=== PATIENT | male | born 1945 | race Two or more races ===

== ENCOUNTER 2025-04-10 15:45 | Inpatient (IN) | payer OTHER ==
[~2025-04-10] VITALS: Ht 160 cm; Wt 56.4 kg
[~2025-04-10 15:45] MED LIST: CALCIUM CHLORIDE 1 GM/10 ML DISP.SYRIN IVP ONE; EPINEPHRINE 1:10,000 1 MG/10 ML DISP.SYRIN ONE; SODIUM BICARBONATE 8.4% 50 MEQ/50 ML DISP.SYRIN IV ONE
[2025-04-10] MEDS ORDERED: ISOS60TA72 PO (16:14)
[2025-04-10] MEDS ORDERED: FAMO10TA41 PO (16:14)
[2025-04-10] MEDS ORDERED: MAGN400O6 PO (16:14)
[2025-04-10] MEDS ORDERED: ZOLP5TAB18 PO (16:14)
[2025-04-10] MEDS ORDERED: FERR-56 PO (16:14)
[2025-04-10] MEDS ORDERED: ACET-3117 PO (16:14)
[2025-04-10] MEDS ORDERED: DOCU-141 PO (16:14)
[2025-04-10] MEDS ORDERED: ATOR20TA PO (16:14)
[2025-04-10] MEDS ORDERED: HYDR-5156 PO (16:14)
[2025-04-10] MEDS ORDERED: CARV12.52 PO (16:14)
[2025-04-10] MEDS ORDERED: BISA10SU61 RC (16:14)
[2025-04-10] MEDS ORDERED: FOLI1TAB27 PO (16:14)
[2025-04-10] MEDS ORDERED: FOLI0.8T2 PO (16:14)
[2025-04-10] MEDS ORDERED: NITR0.4T SL (16:14)
[2025-04-10] MEDS ORDERED: ASPI-869 PO (16:14)
[2025-04-10] MEDS ORDERED: TAMS0.4C PO (16:14)
[2025-04-10] MEDS ORDERED: ACET-73 PO (16:14)
[2025-04-10] MEDS ORDERED: CHOL10005 PO (16:14)
[2025-04-10] MEDS ORDERED: NA P133E RC (16:14)
[2025-04-10] MEDS ORDERED: MELA3TAB52 PO (16:14)
[2025-04-10] MEDS ORDERED: LOSA50TA39 PO (16:14)
[2025-04-10] MEDS ORDERED: GABA100C PO (16:14)
[2025-04-10] MEDS ORDERED: SEVE800T7 PO (16:14)
[2025-04-10] MEDS ORDERED: ALBU0.63 NEB (16:14)
[2025-04-10] MEDS ORDERED: SENN-302 PO (16:14)
[2025-04-10] MEDS ORDERED: FURO-152 PO (16:14)
[2025-04-10 16:31] LABS: PLATELET COUNT (AUTO) 256 K/uL (179-408); RED BLOOD CELL COUNT(AUTO) 2.97 MIL/uL (3.63-4.92); RED CELL DISTRIBUTION WIDTH 19.1 % (12.3-17.7); WHITE BLOOD COUNT (AUTO) 6.4 K/uL (3.8-11.8)
[2025-04-10 16:42] LABS: CREATININE 5.0 mg/dL (0.6-1.3); SODIUM SERUM 131 mmol/L (136-145); UREA NITROGEN, BLOOD 59 mg/dL (7-18)
[2025-04-10 16:47] LABS: ASPARTATE AMINOTRANSFERASE 38 U/L (15-37); TOTAL PROTEIN, SERUM 7.9 g/dL (6.4-8.2)
[2025-04-10] MEDS ORDERED: METOCLOPRAMIDE HCL 10 MG/2 ML VIAL ONE (17:18)
[2025-04-10] MEDS ORDERED: MORPHINE SULFATE 2 MG/1 ML DISP.SYRIN ONE (17:18)
[2025-04-10] MEDS: METOCLOPRAMIDE HCL 10 MG/2 ML VIAL IV ONE (17:45)
[2025-04-10] MEDS: MORPHINE SULFATE 2 MG/1 ML DISP.SYRIN IV ONE (17:45)
[2025-04-10] MEDS ORDERED: MIDAZOLAM HCL 2 MG/2 ML VIAL ONE (17:47)
[2025-04-10] MEDS: MIDAZOLAM HCL 2 MG/2 ML VIAL IV ONE (18:03)
[2025-04-10] MEDS: SODIUM ZIRCONIUM CYCLOSILICATE 10 GM POWD.PACK PO ONE ×2 (18:45→22:17)
[2025-04-10] MEDS ORDERED: ONDANSETRON 4 MG/2 ML VIAL IV PRN (19:00)
[2025-04-10] MEDS ORDERED: MAGNESIUM HYDROXIDE 30 ML LIQUID UDC PO PRN (19:00)
[2025-04-10 19:43] LABS: CREATININE 5.1 mg/dL (0.6-1.3); SODIUM SERUM 132 mmol/L (136-145); UREA NITROGEN, BLOOD 63 mg/dL (7-18)
[2025-04-10] MEDS: CALCIUM CHLORIDE 1 GM/10 ML DISP.SYRIN IVP ONE (21:30)
[2025-04-10] MEDS: ALBUTEROL SULFATE 2.5 MG/3 ML NEBU NEB ONE ×2 (21:30→23:04)
[2025-04-10 22:09] VITALS: BP 166/78; TEMP 97.9; O2SAT 92
[2025-04-10] MEDS: SODIUM BICARBONATE 8.4% 50 MEQ/50 ML DISP.SYRIN IV ONE (22:23)
[2025-04-10] MEDS ORDERED: INSULIN REGULAR, HUMAN 1000 UNIT/10 ML VIAL ONE (22:28)
[2025-04-10] MEDS: DEXTROSE 50% 50 ML DISP.SYRIN IV ONE (22:29)
[2025-04-10] MEDS: GABAPENTIN 100 MG CAPSULE PO SCH (22:33)
[2025-04-10] MEDS ORDERED: CALCIUM CHLORIDE 1 GM/10 ML DISP.SYRIN IVP ONE (22:33)
[2025-04-10] MEDS: ATORVASTATIN 20 MG TABLET PO SCH (22:33)
[2025-04-10] MEDS: MELATONIN 3 MG TABLET PO SCH (22:33)
[2025-04-10] MEDS: INSULIN REGULAR, HUMAN 1000 UNIT/10 ML VIAL IV ONE (22:35)
[2025-04-10] MEDS: FUROSEMIDE 20 MG/2 ML VIAL IVP ONE (22:52)
[2025-04-10 23:03] VITALS: O2SAT 92
[2025-04-10 23:12] VITALS: O2SAT 95
[2025-04-11] VITALS (7 sets, daily range): BP systolic 112–170; BP diastolic 55–78; TEMP 97.3–98.7; O2SAT 91–100
[2025-04-11 00:40] LABS: *BILIRUBIN,URIN NEGATIVE (NEGATIVE); *BLOOD, URINE 1+ (NEGATIVE); *CLARITY,URINE CLOUDY (CLEAR); *COLOR,URINE YELLOW (YELLOW); *KETONES,URINE NEGATIVE (NEGATIVE); *UROBILINOGEN,URINE 0.2 E.U./dl (NORMAL); LEUKOCYTE ESTERASE ,URINE 3+ (NEGATIVE); NITRITE, URINE NEGATIVE (NEGATIVE); UGLUCOSE NEGATIVE (NEGATIVE)
[2025-04-11 00:42] LABS: *PROTEIN,URINE 3+ (NEGATIVE)
[2025-04-11 00:49] LABS: SQUAMOUS EPITHELIAL CELL,UR FEW /HPF (NONE SEEN)
[2025-04-11] MEDS: LORAZEPAM 0.5 MG TABLET PO ONE (01:06)
[2025-04-11 07:46] LABS: PLATELET COUNT (AUTO) 261 K/uL (152-348); RED BLOOD CELL COUNT(AUTO) 3.21 MIL/uL (4.06-5.63); RED CELL DISTRIBUTION WIDTH 18.6 % (12.1-16.2); WHITE BLOOD COUNT (AUTO) 7.7 K/uL (3.6-10.2)
[2025-04-11 07:50] LABS: CREATININE 5.8 mg/dL (0.6-1.3); SODIUM SERUM 134 mmol/L (136-145); UREA NITROGEN, BLOOD 74 mg/dL (7-18)
[2025-04-11] MEDS: SEVELAMER CARBONATE 800 MG TABLET PO SCH (08:56)
[2025-04-11] MEDS: CHOLECALCIFEROL 1,000 UNIT TABLET PO SCH (09:03)
[2025-04-11] MEDS: DOCUSATE SODIUM 100 MG CAPSULE PO SCH (09:03)
[2025-04-11] MEDS: FOLIC ACID/VITAMIN B COMP W-C TABLET PO SCH (09:03)
[2025-04-11] MEDS: ASPIRIN EC 325 MG TABLET.DR PO SCH (09:03)
[2025-04-11] MEDS: CARVEDILOL 12.5 MG TABLET PO SCH (09:04)
[2025-04-11] MEDS: ISOSORBIDE MONONITRATE 60 MG TAB.SR.24H PO SCH (09:04)
[2025-04-11] MEDS: ACETAMINOPHEN 325 MG TABLET PO PRN (09:06)
[2025-04-11] MEDS: FAMOTIDINE 20 MG TABLET PO SCH (09:08)
[2025-04-11] MEDS ORDERED: CYAN100T44 PO (10:36)
[2025-04-11 13:53] LABS: BAND % (MANUAL) 4 % (0-10); NEUTROPHILS % (MANUAL) 60 % (42-75)
[2025-04-11 13:54] LABS: LYMPHOCYTES % (MANUAL) 17 % (20-40); MONOCYTES % (MANUAL) 19 % (2-10); PLATELET ESTIMATE ADEQUATE
[2025-04-11] MEDS ORDERED: HEPA500034 SQ (15:58)
[2025-04-11] MEDS: FERROUS SULFATE 325 MG TABEC PO SCH (17:11)
[2025-04-11] MEDS: SENNOSIDES/DOCUSATE SODIUM TABLET PO SCH (17:11)
[2025-04-11] MEDS: TAMSULOSIN HCL 0.4 MG CAP.SR.24H PO SCH (23:46)
[2025-04-11] MEDS: HEPARIN SODIUM,PORCINE 5,000 UNITS/ML VIAL SQ SCH (23:47)
[2025-04-12] VITALS (8 sets, daily range): BP systolic 104–173; BP diastolic 53–84; TEMP 97.4–98.1; O2SAT 95–100
[2025-04-12] MEDS: CLONIDINE HCL 0.1 MG TABLET PO PRN (04:28)
[2025-04-12 07:07] LABS: PLATELET COUNT (AUTO) 228 K/uL (152-348); RED BLOOD CELL COUNT(AUTO) 2.68 MIL/uL (4.06-5.63); RED CELL DISTRIBUTION WIDTH 18.6 % (12.1-16.2); WHITE BLOOD COUNT (AUTO) 7.5 K/uL (3.6-10.2)
[2025-04-12 07:26] LABS: CREATININE 4.8 mg/dL (0.6-1.3); SODIUM SERUM 134 mmol/L (136-145); UREA NITROGEN, BLOOD 60 mg/dL (7-18)
[2025-04-12] MEDS: CYANOCOBALAMIN 100 MCG TABLET PO SCH (08:49)
[2025-04-12] MEDS: ASPIRIN 81 MG TAB.CHEW PO SCH (08:50)
[2025-04-12] MEDS: LORAZEPAM 1 MG TABLET PO PRN (11:22)
[2025-04-12] MEDS: MUPIROCIN 2% OINT 22 GM TUBE NS SCH (15:01)
[2025-04-12] MEDS: VANCOMYCIN IV 1,000 MG in IV DEXTROSE 5% 250 ML IV ONE (18:10)
[2025-04-13] VITALS (8 sets, daily range): BP systolic 95–141; BP diastolic 49–70; TEMP 97.5–98.6; O2SAT 97–100
[2025-04-13 07:14] LABS: PLATELET COUNT (AUTO) 208 K/uL (152-348); RED BLOOD CELL COUNT(AUTO) 3.06 MIL/uL (4.06-5.63); RED CELL DISTRIBUTION WIDTH 18.7 % (12.1-16.2); WHITE BLOOD COUNT (AUTO) 7.3 K/uL (3.6-10.2)
[2025-04-13 07:19] LABS: CREATININE 4.1 mg/dL (0.6-1.3); SODIUM SERUM 128 mmol/L (136-145); UREA NITROGEN, BLOOD 47 mg/dL (7-18)
[2025-04-13] MEDS ORDERED: VANCOMYCIN IV 500 MG in IV DEXTROSE 5% 100 ML IV PRN (08:00)
[2025-04-13 08:07] LABS: HEPATITIS B CORE AB, TOTAL Negative (Negative); HEPATITIS B SURFACE AB, QUAL Non Reactive (.)
[2025-04-13] MEDS: TRAMADOL HCL 50 MG TABLET PO PRN (11:23)
[2025-04-13] MEDS: CARVEDILOL 25 MG TABLET PO ONE (13:40)
[2025-04-13] MEDS ORDERED: TRAMADOL HCL 50 MG TABLET PO SCH (14:00)
[2025-04-13 14:21] LABS: BAND % (MANUAL) 3 % (0-10); LYMPHOCYTES % (MANUAL) 20 % (20-40); MONOCYTES % (MANUAL) 16 % (2-10); NEUTROPHILS % (MANUAL) 61 % (42-75)
[2025-04-13 14:22] LABS: PLATELET ESTIMATE ADEQUATE
[2025-04-13] MEDS: CARVEDILOL 25 MG TABLET PO SCH (16:49)
[2025-04-13] MEDS: VANCOMYCIN IV 1,000 MG in IV DEXTROSE 5% 250 ML IV ONE (20:38)
[2025-04-14 05:06] VITALS: BP 94/53; TEMP 97.9; O2SAT 100
[2025-04-14 07:16] LABS: PLATELET COUNT (AUTO) 213 K/uL (152-348); RED BLOOD CELL COUNT(AUTO) 2.73 MIL/uL (4.06-5.63); RED CELL DISTRIBUTION WIDTH 18.8 % (12.1-16.2); WHITE BLOOD COUNT (AUTO) 5.3 K/uL (3.6-10.2)
[2025-04-14 07:25] LABS: CREATININE 4.0 mg/dL (0.6-1.3); SODIUM SERUM 129 mmol/L (136-145); UREA NITROGEN, BLOOD 45 mg/dL (7-18)
[2025-04-14 08:30] VITALS: BP 103/78; TEMP 97.8
[2025-04-14 10:50] VITALS: O2SAT 98
[2025-04-14] MEDS: SODIUM ZIRCONIUM CYCLOSILICATE 10 GM POWD.PACK PO ONE (11:43)
[2025-04-14 12:00] VITALS: BP 141/81; TEMP 94
[2025-04-14] MEDS ORDERED: MEROPENEM 1 G in IV NORMAL SALINE 100 ML IV SCH (14:00)
[2025-04-14] MEDS ORDERED: MEROPENEM 500 MG in IV NORMAL SALINE 50 ML IV SCH (21:00)
[2025-04-14] MEDS: MEROPENEM 500 MG in IV NORMAL SALINE 50 ML IV SCH (23:11)
[2025-04-14] MEDS: VANCOMYCIN IV 1,000 MG in IV DEXTROSE 5% 250 ML IV ONE (23:11)
[2025-04-15] VITALS (7 sets, daily range): BP systolic 99–142; BP diastolic 52–83; TEMP 97.4–97.9; O2SAT 94–99
[2025-04-15 06:49] LABS: PLATELET COUNT (AUTO) 194 K/uL (152-348); RED BLOOD CELL COUNT(AUTO) 2.62 MIL/uL (4.06-5.63); RED CELL DISTRIBUTION WIDTH 18.9 % (12.1-16.2); WHITE BLOOD COUNT (AUTO) 5.6 K/uL (3.6-10.2)
[2025-04-15 07:06] LABS: CREATININE 3.9 mg/dL (0.6-1.3); SODIUM SERUM 137 mmol/L (136-145); UREA NITROGEN, BLOOD 37 mg/dL (7-18)
[2025-04-16] VITALS (7 sets, daily range): BP systolic 91–146; BP diastolic 51–87; TEMP 97.4–98.9; O2SAT 95–100
[2025-04-16] MEDS: ALPRAZOLAM 0.25 MG TABLET PO PRN (03:15)
[2025-04-16 06:26] LABS: PLATELET COUNT (AUTO) 178 K/uL (152-348); RED BLOOD CELL COUNT(AUTO) 2.70 MIL/uL (4.06-5.63); RED CELL DISTRIBUTION WIDTH 19.0 % (12.1-16.2); WHITE BLOOD COUNT (AUTO) 6.8 K/uL (3.6-10.2)
[2025-04-16 06:28] LABS: CREATININE 4.0 mg/dL (0.6-1.3); SODIUM SERUM 135 mmol/L (136-145); UREA NITROGEN, BLOOD 42 mg/dL (7-18)
[2025-04-16] MEDS: ARGININE/GLUTAMINE/CALCIUM BMB 1 EACH POWD.PACK PO SCH (08:42)
[2025-04-17 03:58] VITALS: O2SAT 97
[2025-04-17 06:52] LABS: PLATELET COUNT (AUTO) 161 K/uL (152-348); RED BLOOD CELL COUNT(AUTO) 2.58 MIL/uL (4.06-5.63); RED CELL DISTRIBUTION WIDTH 18.6 % (12.1-16.2); WHITE BLOOD COUNT (AUTO) 6.3 K/uL (3.6-10.2)
[2025-04-17 06:53] LABS: CREATININE 4.7 mg/dL (0.6-1.3); SODIUM SERUM 126 mmol/L (136-145); UREA NITROGEN, BLOOD 57 mg/dL (7-18)
[2025-04-17 08:23] VITALS: BP 80/52; TEMP 97.6; O2SAT 96
[2025-04-17 12:07] VITALS: BP 106/53; TEMP 97.6; O2SAT 96
[2025-04-17] MEDS: ALBUMIN HUMAN 25% 100 ML IV SCH (13:49)
[2025-04-17 16:15] VITALS: O2SAT 96
[2025-04-17 16:57] VITALS: BP 104/40; TEMP 97.6; O2SAT 96
[2025-04-17] MEDS: VANCOMYCIN IV 500 MG in IV DEXTROSE 5% 100 ML IV ONE (18:09)
[2025-04-17] MEDS: MIDODRINE HCL 5 MG TABLET PO PRN (20:11)
[2025-04-18] VITALS (66 sets, daily range): BP systolic 51–185; BP diastolic 15–113; TEMP 97.8–98.8; O2SAT 98–100
[2025-04-18] MEDS: DEXAMETHASONE SOD PHOSPHATE 4 MG INJ IV ONE (06:45)
[2025-04-18] MEDS: NOREPINEPHRINE 8MG/NS 250ML 250 ML IV ONE (06:59)
[2025-04-18] MEDS: PROPOFOL 100 ML ONE (07:00)
[2025-04-18] MEDS: PROPOFOL 100 ML IV PRN ×2 (07:09→08:07)
[2025-04-18] MEDS: PHENYLEPHRINE IV 100 MG in IV NORMAL SALINE 240 ML IV PRN (07:31)
[2025-04-18 07:39] LABS: PLATELET COUNT (AUTO) 153 K/uL (152-348); RED BLOOD CELL COUNT(AUTO) 2.87 MIL/uL (4.06-5.63); RED CELL DISTRIBUTION WIDTH 18.9 % (12.1-16.2); WHITE BLOOD COUNT (AUTO) 8.5 K/uL (3.6-10.2)
[2025-04-18] MEDS: AMIODARONE HCL IV 150 MG in IV DEXTROSE 5% 100 ML IV ONE (07:46)
[2025-04-18 07:48] LABS: CREATININE 4.5 mg/dL (0.6-1.3); SODIUM SERUM 130 mmol/L (136-145); UREA NITROGEN, BLOOD 54 mg/dL (7-18)
[2025-04-18] MEDS: AMIODARONE HCL IV 450 MG in IV DEXTROSE 5% 250 ML IV PRN (08:10)
[2025-04-18 08:55] LABS: ABG BASE EXCESS -2.4 mmol/L (-2.0-3.0); ABG HCO3 22.0 mmol/L (21.0-28.0); ABG PCO2 36.2 mmHg (35.0-48.0); ABG PH 7.402 (7.350-7.450); ABG PO2 219.9 mmHg (83.0-108.0); ABG SITE LEFT FEMORAL; ABG TOTAL HEMOGLOBIN 9.7 G/dL (13.5-17.5); AaDO2 99.5 mmHg; FIO2 100.0 %; PEEP,BG 0.0 cmH20; SET RATE, BG 18.0; VT, ABG 500 mL
[2025-04-18] MEDS ORDERED: ISOSORBIDE MONONITRATE 60 MG TAB.SR.24H PO SCH (09:00)
[2025-04-18] MEDS ORDERED: CARVEDILOL 25 MG TABLET PO SCH (09:00)
[2025-04-18] MEDS ORDERED: NOREPINEPHRINE BITARTRATE 32 MG in IV NORMAL SALINE 218 ML IV PRN ×2 (09:30→09:45)
[2025-04-18] MEDS ORDERED: LORAZEPAM 1 MG TABLET PO PRN (10:00)
[2025-04-18] MEDS: NOREPINEPHRINE BITARTRATE 32 MG in IV NORMAL SALINE 218 ML IV PRN (11:01)
[2025-04-18] MEDS: FERROUS SULFATE 300 MG/5 ML LIQUID UDC NG SCH (17:17)
[2025-04-18] MEDS: FAMOTIDINE. 20 MG/2 ML VIAL IV SCH (20:36)
[2025-04-18] MEDS: DOCUSATE SODIUM 100 MG/10 ML LIQUID UDC NG SCH (20:36)
[2025-04-19] VITALS (97 sets, daily range): BP systolic 71–172; BP diastolic 19–107; TEMP 97.5–98.5; O2SAT 93–100
[2025-04-19 05:01] LABS: PLATELET COUNT (AUTO) 161 K/uL (152-348); RED BLOOD CELL COUNT(AUTO) 3.34 MIL/uL (4.06-5.63); RED CELL DISTRIBUTION WIDTH 19.6 % (12.1-16.2); WHITE BLOOD COUNT (AUTO) 13.2 K/uL (3.6-10.2)
[2025-04-19 05:13] LABS: CREATININE 5.2 mg/dL (0.6-1.3); SODIUM SERUM 127 mmol/L (136-145); UREA NITROGEN, BLOOD 66 mg/dL (7-18)
[2025-04-19 06:12] LABS: ABG BASE EXCESS -2.2 mmol/L (-2.0-3.0); ABG HCO3 20.1 mmol/L (21.0-28.0); ABG PCO2 27.5 mmHg (35.0-48.0); ABG PH 7.482 (7.350-7.450); ABG PO2 129.6 mmHg (83.0-108.0); ABG SITE LEFT BRACHIAL; ABG TOTAL HEMOGLOBIN 12.2 G/dL (13.5-17.5); AaDO2 98.8 mmHg; FIO2 50.0 %; PEEP,BG 0.0 cmH20; SET RATE, BG 18.0; VT, ABG 500 mL
[2025-04-19] MEDS: NEOMY/BACITRAC/POLYMI OINT 28.35 GM TUBE TOP SCH (09:46)
[2025-04-20] VITALS (100 sets, daily range): BP systolic 76–211; BP diastolic 20–119; TEMP 96.3–97.8; O2SAT 91–100
[2025-04-20] MEDS: MEROPENEM 500 MG in IV NORMAL SALINE 50 ML IV SCH (01:39)
[2025-04-20 04:29] LABS: PLATELET COUNT (AUTO) 144 K/uL (152-348); RED BLOOD CELL COUNT(AUTO) 3.02 MIL/uL (4.06-5.63); RED CELL DISTRIBUTION WIDTH 19.4 % (12.1-16.2); WHITE BLOOD COUNT (AUTO) 6.3 K/uL (3.6-10.2)
[2025-04-20 04:38] LABS: CREATININE 4.4 mg/dL (0.6-1.3); SODIUM SERUM 136 mmol/L (136-145); UREA NITROGEN, BLOOD 51 mg/dL (7-18)
[2025-04-20 06:44] LABS: ABG BASE EXCESS 2.0 mmol/L (-2.0-3.0); ABG HCO3 24.8 mmol/L (21.0-28.0); ABG PCO2 32.1 mmHg (35.0-48.0); ABG PH 7.505 (7.350-7.450); ABG PO2 73.0 mmHg (83.0-108.0); ABG SITE LEFT BRACHIAL; ABG TOTAL HEMOGLOBIN 10.8 G/dL (13.5-17.5); AaDO2 96.0 mmHg; FIO2 30.0 %; PEEP,BG 5.0 cmH20; SET RATE, BG 14.0; VT, ABG 500 mL
[2025-04-21] VITALS (91 sets, daily range): BP systolic 77–155; BP diastolic 27–111; TEMP 97.6–98.8; O2SAT 92–100
[2025-04-21] MEDS: VANCOMYCIN HCL 750 MG in IV DEXTROSE 5% 250 ML IV ONE (17:53)
[2025-04-21] MEDS: SEVELAMER CARBONATE 800 MG POWD.PACK NG SCH (17:53)
[2025-04-21] MEDS: NEPRO 1000 ML GT PRN (22:25)
[2025-04-21] MEDS ORDERED: NOREPINEPHRINE 8MG/NS 250ML 0 ML IV ONE (23:49)
[2025-04-21] MEDS ORDERED: NOREPINEPHRINE BITARTRATE 4 MG/4 ML VIAL IV ONE (23:59)
[2025-04-22] VITALS (98 sets, daily range): BP systolic 76–160; BP diastolic 18–127; TEMP 98.1–99; O2SAT 89–100
[2025-04-22] MEDS: NOREPINEPHRINE BITARTRATE 8 MG in IV DEXTROSE 5% 500 ML IV PRN (00:07)
[2025-04-22] MEDS: NOREPINEPHRINE BITARTRATE 8 MG in IV NORMAL SALINE 250 ML IV PRN (02:00)
[2025-04-22] MEDS ORDERED: NOREPINEPHRINE BITARTRATE 4 MG/4 ML VIAL IV ONE ×2 (02:16)
[2025-04-22] MEDS ORDERED: NEOMY/BACITRA/POLYMYXIN B OINT UD PACKET TP ONE (09:11)
[2025-04-22] MEDS ORDERED: LIDOCAINE HCL 1% 20 ML VIAL ONE (09:11)
[2025-04-22] MEDS ORDERED: [UNRECOGNIZED DRUG - OTHER] XX PRN (13:45)
[2025-04-22] MEDS: AMIODARONE HCL IV 150 MG in IV DEXTROSE 5% 100 ML IV ONE (14:33)
[2025-04-22] MEDS: AMIODARONE HCL IV 450 MG in IV DEXTROSE 5% 250 ML IV PRN (14:47)
[2025-04-22] MEDS ORDERED: NOREPINEPHRINE 8MG/NS 250ML 250 ML IV ONE (21:36)
[2025-04-23] VITALS (96 sets, daily range): BP systolic 73–198; BP diastolic 21–98; TEMP 97–98.9; O2SAT 88–100
[2025-04-23 04:58] LABS: PLATELET COUNT (AUTO) 170 K/uL (152-348); RED BLOOD CELL COUNT(AUTO) 2.86 MIL/uL (4.06-5.63); RED CELL DISTRIBUTION WIDTH 19.7 % (12.1-16.2); WHITE BLOOD COUNT (AUTO) 8.0 K/uL (3.6-10.2)
[2025-04-23 05:09] LABS: CREATININE 5.5 mg/dL (0.6-1.3); SODIUM SERUM 129 mmol/L (136-145); UREA NITROGEN, BLOOD 61 mg/dL (7-18)
[2025-04-23 06:04] LABS: LYMPHOCYTES % (MANUAL) 22 % (20-40); NEUTROPHILS % (MANUAL) 62 % (42-75)
[2025-04-23 06:05] LABS: EOSINOPHILS % (MANUAL) 1 % (0-8); MONOCYTES % (MANUAL) 15 % (2-10); PLATELET ESTIMATE ADEQUATE
[2025-04-23] MEDS ORDERED: NOREPINEPHRINE 8MG/NS 250ML 250 ML IV ONE (06:05)
[2025-04-23 06:38] LABS: ABG BASE EXCESS -0.8 mmol/L (-2.0-3.0); ABG HCO3 24.2 mmol/L (21.0-28.0); ABG PCO2 41.3 mmHg (35.0-48.0); ABG PH 7.385 (7.350-7.450); ABG PO2 70.7 mmHg (83.0-108.0); ABG SITE RIGHT RADIAL; ABG TOTAL HEMOGLOBIN 9.7 G/dL (13.5-17.5); AaDO2 94.0 mmHg; CPAP,BG 8 cmH20; FIO2 35.0 %; PEEP,BG 0.0 cmH20
[2025-04-23] MEDS: NOREPINEPHRINE 8MG/NS 250ML 250 ML IV PRN (10:29)
[2025-04-23] MEDS: AMIODARONE HCL 200 MG TABLET PO SCH (17:14)
[2025-04-23] MEDS: MEROPENEM 500 MG in IV NORMAL SALINE 50 ML IV ONE (21:28)
[2025-04-24] VITALS (92 sets, daily range): BP systolic 100–168; BP diastolic 23–61; TEMP 97.4–98.5; O2SAT 90–100
[2025-04-24 05:08] LABS: PLATELET COUNT (AUTO) 164 K/uL (152-348); RED BLOOD CELL COUNT(AUTO) 2.80 MIL/uL (4.06-5.63); RED CELL DISTRIBUTION WIDTH 20.0 % (12.1-16.2); WHITE BLOOD COUNT (AUTO) 6.9 K/uL (3.6-10.2)
[2025-04-24 05:15] LABS: CREATININE 4.5 mg/dL (0.6-1.3); SODIUM SERUM 132 mmol/L (136-145); UREA NITROGEN, BLOOD 49 mg/dL (7-18)
[2025-04-24 06:37] LABS: ABG BASE EXCESS 0.2 mmol/L (-2.0-3.0); ABG HCO3 24.9 mmol/L (21.0-28.0); ABG PCO2 40.7 mmHg (35.0-48.0); ABG PH 7.405 (7.350-7.450); ABG PO2 88.8 mmHg (83.0-108.0); ABG SITE RIGHT RADIAL; ABG TOTAL HEMOGLOBIN 9.4 G/dL (13.5-17.5); AaDO2 96.8 mmHg; FIO2 35.0 %; PEEP,BG 0.0 cmH20; SET RATE, BG 14.0; VT, ABG 470 mL
[2025-04-24] MEDS: FAMOTIDINE 20 MG TABLET NG SCH (08:25)
[2025-04-24 18:28] LABS: PROTEIN, BODY FLUID 3.3 G/DL
[2025-04-24 21:31] LABS: TOTAL VOLUME,BODY FLUID 2000 mL; WBC, BODY FLUID 74.8 /cu. mm (0-200/cu.mm)
[2025-04-24 21:32] LABS: MONOCYTES,BODY FLUID 3 %
[2025-04-25] VITALS (97 sets, daily range): BP systolic 86–166; BP diastolic 27–70; TEMP 97.7–102.5; O2SAT 95–100
[2025-04-25 05:00] LABS: PLATELET COUNT (AUTO) 155 K/uL (152-348); RED BLOOD CELL COUNT(AUTO) 2.66 MIL/uL (4.06-5.63); RED CELL DISTRIBUTION WIDTH 21.1 % (12.1-16.2); WHITE BLOOD COUNT (AUTO) 6.8 K/uL (3.6-10.2)
[2025-04-25 05:09] LABS: CREATININE 5.3 mg/dL (0.6-1.3); SODIUM SERUM 135 mmol/L (136-145); UREA NITROGEN, BLOOD 60 mg/dL (7-18)
[2025-04-25 07:13] LABS: ABG BASE EXCESS 2.8 mmol/L (-2.0-3.0); ABG HCO3 27.1 mmol/L (21.0-28.0); ABG PCO2 40.7 mmHg (35.0-48.0); ABG PH 7.442 (7.350-7.450); ABG PO2 92.9 mmHg (83.0-108.0); ABG SITE RIGHT RADIAL; ABG TOTAL HEMOGLOBIN 9.1 G/dL (13.5-17.5); AaDO2 97.4 mmHg; FIO2 35.0 %; PEEP,BG 0.0 cmH20; SET RATE, BG 14.0; VT, ABG 470 mL
[2025-04-26] VITALS (92 sets, daily range): BP systolic 93–142; BP diastolic 23–95; TEMP 98.3–99; O2SAT 90–100
[2025-04-26 05:18] LABS: PLATELET COUNT (AUTO) 169 K/uL (152-348); RED BLOOD CELL COUNT(AUTO) 2.59 MIL/uL (4.06-5.63); RED CELL DISTRIBUTION WIDTH 20.8 % (12.1-16.2); WHITE BLOOD COUNT (AUTO) 6.5 K/uL (3.6-10.2)
[2025-04-26 05:27] LABS: CREATININE 4.0 mg/dL (0.6-1.3); SODIUM SERUM 136 mmol/L (136-145); UREA NITROGEN, BLOOD 47 mg/dL (7-18)
[2025-04-26 14:44] LABS: PROTEIN, BODY FLUID 2.8 G/DL
[2025-04-26 16:16] LABS: TOTAL VOLUME,BODY FLUID 1600 mL; WBC, BODY FLUID 213 /cu. mm (0-200/cu.mm)
[2025-04-26] MEDS: ALBUMIN HUMAN 25% 100 ML IV SCH (16:32)
[2025-04-26 16:36] LABS: MACROPHAGES, BODY FLUID 2
[2025-04-26 16:43] LABS: MONOCYTES,BODY FLUID 6 %
[2025-04-26] MEDS ORDERED: IOHEXOL 350 100 ML INFUS..BTL ONE (17:04)
[2025-04-26] MEDS ORDERED: IV NORMAL SALINE 250 ML IV ONE (17:04)
[2025-04-26] MEDS: HEPARIN/D5W DRIP 500 ML IV PRN (17:42)
[2025-04-26 17:58] LABS: FRACTIONATED INSPIRED OXYGEN-V 30.0 %; PEEP,VBG 0 cm H2O; SET RATE, VBG 14.0; SITE, VBG VBG - N/A; VBG AaDO2 77.9 mmHg; VBG BASE EXCESS 2.6 mmol/L (-2.0-3.0); VBG HCO3 27.2 mmol/L (22.0-29.0); VBG MetHb 0.1 % (0.5-1.5); VBG O2HB 71.6 % (0-79.0); VBG PCO2 42.1 mmHg (38.0-54.0); VBG PH 7.428 (7.320-7.430); VBG PO2 41.2 mmHg (23.0-48.0); VBG TOTAL HEMOGLOBIN 8.3 G/dL (13.5-17.5)
[2025-04-26 17:58] LABS: ABG BASE EXCESS 3.6 mmol/L (-2.0-3.0); ABG HCO3 30.3 mmol/L (21.0-28.0); ABG PCO2 57.5 mmHg (35.0-48.0); ABG PH 7.340 (7.350-7.450); ABG PO2 59.4 mmHg (83.0-108.0); ABG SITE RIGHT RADIAL; ABG TOTAL HEMOGLOBIN 9.9 G/dL (13.5-17.5); AaDO2 88.7 mmHg; FIO2 30.0 %; PEEP,BG 0.0 cmH20
[2025-04-27] VITALS (100 sets, daily range): BP systolic 59–143; BP diastolic 24–69; TEMP 97.9–99.1; O2SAT 92–100
[2025-04-27 04:24] LABS: PLATELET COUNT (AUTO) 139 K/uL (152-348); RED BLOOD CELL COUNT(AUTO) 2.23 MIL/uL (4.06-5.63); RED CELL DISTRIBUTION WIDTH 21.4 % (12.1-16.2); WHITE BLOOD COUNT (AUTO) 6.1 K/uL (3.6-10.2)
[2025-04-27 04:33] LABS: CREATININE 4.9 mg/dL (0.6-1.3); SODIUM SERUM 135 mmol/L (136-145); UREA NITROGEN, BLOOD 64 mg/dL (7-18)
[2025-04-27 07:58] LABS: ABG BASE EXCESS 4.2 mmol/L (-2.0-3.0); ABG HCO3 29.4 mmol/L (21.0-28.0); ABG PCO2 47.7 mmHg (35.0-48.0); ABG PH 7.407 (7.350-7.450); ABG PO2 77.9 mmHg (83.0-108.0); ABG TOTAL HEMOGLOBIN 8.1 G/dL (13.5-17.5); AaDO2 95.5 mmHg; CPAP,BG 8 cmH20; FIO2 30.0 %
[2025-04-27] MEDS: ALBUMIN HUMAN 25% 100 ML IV SCH (12:41)
[2025-04-28] VITALS (76 sets, daily range): BP systolic 88–130; BP diastolic 22–61; TEMP 98.2–100.4; O2SAT 95–100
[2025-04-28] MEDS ORDERED: ALBUMIN HUMAN 25% 50 ML ONE (05:59)
[2025-04-28 07:16] LABS: PLATELET COUNT (AUTO) 140 K/uL (152-348); RED BLOOD CELL COUNT(AUTO) 2.77 MIL/uL (4.06-5.63); RED CELL DISTRIBUTION WIDTH 19.9 % (12.1-16.2); WHITE BLOOD COUNT (AUTO) 7.2 K/uL (3.6-10.2)
[2025-04-28 07:17] LABS: ABG BASE EXCESS 1.4 mmol/L (-2.0-3.0); ABG HCO3 26.3 mmol/L (21.0-28.0); ABG PCO2 42.9 mmHg (35.0-48.0); ABG PH 7.406 (7.350-7.450); ABG PO2 69.4 mmHg (83.0-108.0); ABG TOTAL HEMOGLOBIN 10.0 G/dL (13.5-17.5); AaDO2 94.0 mmHg; CPAP,BG 8 cmH20; FIO2 30.0 %
[2025-04-28 07:58] LABS: CREATININE 4.2 mg/dL (0.6-1.3); SODIUM SERUM 138 mmol/L (136-145); UREA NITROGEN, BLOOD 64 mg/dL (7-18)
[2025-04-28 12:15] LABS: *BILIRUBIN,URIN NEGATIVE (NEGATIVE); *BLOOD, URINE 2+ (NEGATIVE); *CLARITY,URINE SLIGHTLY CLOUDY (CLEAR); *COLOR,URINE Brown (YELLOW); *KETONES,URINE NEGATIVE (NEGATIVE); *PROTEIN,URINE 3+ (NEGATIVE); *UROBILINOGEN,URINE 0.2 E.U./dl (NORMAL); LEUKOCYTE ESTERASE ,URINE NEGATIVE (NEGATIVE); NITRITE, URINE NEGATIVE (NEGATIVE); UGLUCOSE TRACE (NEGATIVE)
[2025-04-28] MEDS ORDERED: MEROPENEM 500 MG in IV NORMAL SALINE 50 ML IV SCH (15:45)
[2025-04-28] MEDS ORDERED: VANCOMYCIN IV 500 MG in IV DEXTROSE 5% 100 ML IV PRN (16:00)
[2025-04-28] MEDS: BISACODYL 10 MG SUPP.RECT RC PRN (17:38)
[2025-04-28] MEDS: ALBUMIN HUMAN 25% 100 ML IV PRN (19:35)
[2025-04-28] MEDS: MEROPENEM 500 MG in IV NORMAL SALINE 50 ML IV SCH (22:47)
[2025-04-28] MEDS: VANCOMYCIN IV 1,000 MG in IV DEXTROSE 5% 250 ML IV ONE (23:15)
[2025-04-29] VITALS (71 sets, daily range): BP systolic 86–162; BP diastolic 19–70; TEMP 97.7–98.9; O2SAT 93–100
[2025-04-29] MEDS: FLEET ENEMA 133 ML BOTTLE RC PRN (00:35)
[2025-04-29 05:11] LABS: PLATELET COUNT (AUTO) 145 K/uL (152-348); RED BLOOD CELL COUNT(AUTO) 2.69 MIL/uL (4.06-5.63); RED CELL DISTRIBUTION WIDTH 19.6 % (12.1-16.2); WHITE BLOOD COUNT (AUTO) 6.4 K/uL (3.6-10.2)
[2025-04-29 05:22] LABS: CREATININE 3.3 mg/dL (0.6-1.3); SODIUM SERUM 141 mmol/L (136-145); UREA NITROGEN, BLOOD 50 mg/dL (7-18)
[2025-04-29 07:46] LABS: ABG BASE EXCESS 2.6 mmol/L (-2.0-3.0); ABG HCO3 28.5 mmol/L (21.0-28.0); ABG PCO2 49.8 mmHg (35.0-48.0); ABG PH 7.375 (7.350-7.450); ABG PO2 71.2 mmHg (83.0-108.0); ABG SITE RIGHT RADIAL; ABG TOTAL HEMOGLOBIN 10.5 G/dL (13.5-17.5); AaDO2 93.8 mmHg; FIO2 30.0 %; PEEP,BG 0.0 cmH20
[2025-04-29] MEDS ORDERED: EPOETIN ALFA 10,000 UNITS/ML VIAL SQ SCH (11:45)
[2025-04-29] MEDS ORDERED: VANCOMYCIN IV 1,250 MG in IV DEXTROSE 5% 250 ML IV ONE (18:00)
[2025-04-29] MEDS ORDERED: VANCOMYCIN IV 500 MG in IV DEXTROSE 5% 100 ML IV ONE (18:00)
[2025-04-29] MEDS: EPOETIN ALFA-EPBX 10,000 UNIT/ML VIAL SQ SCH (19:38)
[2025-04-30] VITALS (74 sets, daily range): BP systolic 85–147; BP diastolic 26–70; TEMP 97.5–100.8; O2SAT 94–100
[2025-04-30 04:41] LABS: PLATELET COUNT (AUTO) 157 K/uL (152-348); RED BLOOD CELL COUNT(AUTO) 2.55 MIL/uL (4.06-5.63); RED CELL DISTRIBUTION WIDTH 18.6 % (12.1-16.2); WHITE BLOOD COUNT (AUTO) 7.2 K/uL (3.6-10.2)
[2025-04-30 04:57] LABS: CREATININE 3.0 mg/dL (0.6-1.3); SODIUM SERUM 140 mmol/L (136-145); UREA NITROGEN, BLOOD 49 mg/dL (7-18)
[2025-04-30 06:32] LABS: ABG BASE EXCESS 3.3 mmol/L (-2.0-3.0); ABG HCO3 28.3 mmol/L (21.0-28.0); ABG PCO2 44.8 mmHg (35.0-48.0); ABG PH 7.418 (7.350-7.450); ABG PO2 92.1 mmHg (83.0-108.0); ABG SITE RIGHT RADIAL; ABG TOTAL HEMOGLOBIN 9.5 G/dL (13.5-17.5); AaDO2 97.1 mmHg; CPAP,BG 8 cmH20; FIO2 40.0 %; PEEP,BG 0.0 cmH20
[2025-04-30] MEDS: IPRATROPIUM BROMIDE 0.5 MG/2.5 ML NEBU NEB SCH (09:21)
[2025-04-30] MEDS: ACETYLCYSTEINE 20% 800 MG/4 ML VIAL NEB SCH (09:22)
[2025-04-30 16:07] LABS: *PEU ALBUMIN, UR 47.4 % (.); *PEU ALPHA-2-GLOBULIN, UR 8.4 % (.); *PEU GAMMA GLOBULIN, UR 24.4 % (.); *PEU PROTEIN, TOTAL, UR 272.1 mg/dL (Not Estab.); *PEUALPHA-1-GLOBULIN, UR 2.9 % (.); *PEUBETA GLOBULIN, UR 16.9 % (.); *PEUM-SPIKE, UR 0.0 % (Not Observed)
[2025-04-30] MEDS: AMIODARONE HCL 200 MG TABLET PO SCH (17:18)
[2025-05-01] VITALS (55 sets, daily range): BP systolic 107–153; BP diastolic 29–63; TEMP 98.2–99.9; O2SAT 96–100
[2025-05-01 05:06] LABS: PLATELET COUNT (AUTO) 225 K/uL (152-348); RED BLOOD CELL COUNT(AUTO) 2.95 MIL/uL (4.06-5.63); RED CELL DISTRIBUTION WIDTH 18.1 % (12.1-16.2); WHITE BLOOD COUNT (AUTO) 8.0 K/uL (3.6-10.2)
[2025-05-01 05:23] LABS: CREATININE 4.2 mg/dL (0.6-1.3); SODIUM SERUM 136 mmol/L (136-145); UREA NITROGEN, BLOOD 72 mg/dL (7-18)
[2025-05-01 07:58] LABS: ABG BASE EXCESS 1.2 mmol/L (-2.0-3.0); ABG HCO3 26.1 mmol/L (21.0-28.0); ABG PCO2 42.6 mmHg (35.0-48.0); ABG PH 7.405 (7.350-7.450); ABG PO2 90.3 mmHg (83.0-108.0); ABG SITE RIGHT RADIAL; ABG TOTAL HEMOGLOBIN 9.5 G/dL (13.5-17.5); AaDO2 96.9 mmHg; FIO2 30.0 %; PEEP,BG 0.0 cmH20
[2025-05-02] VITALS (31 sets, daily range): BP systolic 108–180; BP diastolic 40–109; TEMP 98.6–100.7; O2SAT 93–100
[2025-05-02 05:00] LABS: PLATELET COUNT (AUTO) 235 K/uL (152-348); RED BLOOD CELL COUNT(AUTO) 2.83 MIL/uL (4.06-5.63); RED CELL DISTRIBUTION WIDTH 18.2 % (12.1-16.2); WHITE BLOOD COUNT (AUTO) 7.7 K/uL (3.6-10.2)
[2025-05-02 05:23] LABS: CREATININE 3.5 mg/dL (0.6-1.3); SODIUM SERUM 137 mmol/L (136-145); UREA NITROGEN, BLOOD 66 mg/dL (7-18)
[2025-05-03] VITALS (54 sets, daily range): BP systolic 71–136; BP diastolic 30–65; TEMP 98.1–101.2; O2SAT 97–100
[2025-05-03 05:23] LABS: PLATELET COUNT (AUTO) 218 K/uL (152-348); RED CELL DISTRIBUTION WIDTH 17.7 % (12.1-16.2); WHITE BLOOD COUNT (AUTO) 7.5 K/uL (3.6-10.2)
[2025-05-03 05:26] LABS: RED BLOOD CELL COUNT(AUTO) 2.37 MIL/uL (4.06-5.63)
[2025-05-03 05:43] LABS: CREATININE 3.4 mg/dL (0.6-1.3); SODIUM SERUM 138 mmol/L (136-145); UREA NITROGEN, BLOOD 71 mg/dL (7-18)
[2025-05-03] MEDS: MEDIHONEY= THERAHONEY 1.5 OZ TUBE TOP SCH (14:45)
[2025-05-04] VITALS (60 sets, daily range): BP systolic 116–176; BP diastolic 28–74; TEMP 98.1–100; O2SAT 96–100
[2025-05-04 05:14] LABS: PLATELET COUNT (AUTO) 254 K/uL (152-348); RED CELL DISTRIBUTION WIDTH 17.6 % (12.1-16.2); WHITE BLOOD COUNT (AUTO) 6.9 K/uL (3.6-10.2)
[2025-05-04 05:23] LABS: CREATININE 3.0 mg/dL (0.6-1.3); RED BLOOD CELL COUNT(AUTO) 2.30 MIL/uL (4.06-5.63); SODIUM SERUM 135 mmol/L (136-145); UREA NITROGEN, BLOOD 66 mg/dL (7-18)
[2025-05-04 06:16] LABS: ABG BASE EXCESS 3.1 mmol/L (-2.0-3.0); ABG HCO3 27.3 mmol/L (21.0-28.0); ABG PCO2 40.5 mmHg (35.0-48.0); ABG PH 7.447 (7.350-7.450); ABG PO2 98.4 mmHg (83.0-108.0); ABG SITE RIGHT RADIAL; ABG TOTAL HEMOGLOBIN 10.6 G/dL (13.5-17.5); AaDO2 97.7 mmHg; FIO2 30.0 %; SET RATE, BG 14.0; VT, ABG 470 mL
[2025-05-04] MEDS: REMEDY ESSENTIAL ZINC PASTE 113 GM TP PRN (08:49)
[2025-05-05] VITALS (30 sets, daily range): BP systolic 93–156; BP diastolic 30–64; TEMP 97.7–99.6; O2SAT 99–100
[2025-05-05 04:59] LABS: PLATELET COUNT (AUTO) 278 K/uL (152-348); RED CELL DISTRIBUTION WIDTH 17.6 % (12.1-16.2); WHITE BLOOD COUNT (AUTO) 7.5 K/uL (3.6-10.2)
[2025-05-05 05:06] LABS: CREATININE 3.0 mg/dL (0.6-1.3); SODIUM SERUM 140 mmol/L (136-145); UREA NITROGEN, BLOOD 73 mg/dL (7-18)
[2025-05-05 05:09] LABS: RED BLOOD CELL COUNT(AUTO) 1.97 MIL/uL (4.06-5.63)
[2025-05-05 06:21] LABS: ABG BASE EXCESS 0.3 mmol/L (-2.0-3.0); ABG HCO3 23.9 mmol/L (21.0-28.0); ABG PCO2 34.1 mmHg (35.0-48.0); ABG PH 7.464 (7.350-7.450); ABG PO2 87.7 mmHg (83.0-108.0); ABG SITE RIGHT RADIAL; ABG TOTAL HEMOGLOBIN 7.8 G/dL (13.5-17.5); AaDO2 97.2 mmHg; FIO2 30.0 %; PEEP,BG 0.0 cmH20; SET RATE, BG 14.0; VT, ABG 470 mL
[2025-05-05] MEDS ORDERED: ACETYLCYSTEINE 20% 800 MG/4 ML VIAL ONE ×3 (07:09→23:15)
[2025-05-05] MEDS ORDERED: IPRATROPIUM BROMIDE 0.5 MG/2.5 ML NEBU ONE ×3 (07:09→23:15)
[2025-05-05] MEDS ORDERED: ASPIRIN 81 MG TAB.CHEW ONE (08:11)
[2025-05-05] MEDS ORDERED: FAMOTIDINE 20 MG TABLET ONE (08:11)
[2025-05-05] MEDS ORDERED: AMIODARONE HCL 200 MG TABLET ONE ×2 (08:12→17:34)
[2025-05-05] MEDS ORDERED: FERROUS GLUCONATE 324 MG TABLET PO ONE (08:12)
[2025-05-05] MEDS ORDERED: CHOLECALCIFEROL 1,000 UNIT TABLET ONE (08:12)
[2025-05-05] MEDS ORDERED: EPOETIN ALFA 10,000 UNITS/ML VIAL SQ ONE (11:00)
[2025-05-05] MEDS: EPOETIN ALFA-EPBX 10,000 UNIT/ML VIAL SQ ONE (11:26)
[2025-05-05 13:18] LABS: BAND % (MANUAL) 5 % (0-10); LYMPHOCYTES % (MANUAL) 16 % (20-40); NEUTROPHILS % (MANUAL) 70 % (42-75)
[2025-05-05 13:19] LABS: EOSINOPHILS % (MANUAL) 1 % (0-8); MONOCYTES % (MANUAL) 8 % (2-10); PLATELET ESTIMATE ADEQUATE
[2025-05-06] VITALS (25 sets, daily range): BP systolic 91–151; BP diastolic 23–63; TEMP 97.5–99.6; O2SAT 99–100
[2025-05-06 04:57] LABS: PLATELET COUNT (AUTO) 255 K/uL (152-348); RED CELL DISTRIBUTION WIDTH 16.3 % (12.1-16.2); WHITE BLOOD COUNT (AUTO) 7.4 K/uL (3.6-10.2)
[2025-05-06 05:02] LABS: RED BLOOD CELL COUNT(AUTO) 2.07 MIL/uL (4.06-5.63)
[2025-05-06 05:04] LABS: CREATININE 4.2 mg/dL (0.6-1.3); SODIUM SERUM 138 mmol/L (136-145)
[2025-05-06 05:08] LABS: NEUTROPHILS % (MANUAL) 0 % (42-75)
[2025-05-06 05:15] LABS: UREA NITROGEN, BLOOD 104 mg/dL (7-18)
[2025-05-06 06:29] LABS: ABG BASE EXCESS -1.1 mmol/L (-2.0-3.0); ABG HCO3 22.4 mmol/L (21.0-28.0); ABG PCO2 31.7 mmHg (35.0-48.0); ABG PH 7.468 (7.350-7.450); ABG PO2 105.7 mmHg (83.0-108.0); ABG SITE RIGHT RADIAL; ABG TOTAL HEMOGLOBIN 6.5 G/dL (13.5-17.5); AaDO2 98.2 mmHg; FIO2 30.0 %; PEEP,BG 0.0 cmH20; SET RATE, BG 14.0; VT, ABG 470 mL
[2025-05-06] MEDS ORDERED: IPRATROPIUM BROMIDE 0.5 MG/2.5 ML NEBU ONE ×3 (07:10→22:49)
[2025-05-06] MEDS ORDERED: ACETYLCYSTEINE 20% 800 MG/4 ML VIAL ONE ×3 (07:10→22:49)
[2025-05-06] MEDS ORDERED: DOCUSATE SODIUM 100 MG/10 ML LIQUID UDC ONE ×2 (08:16→20:31)
[2025-05-06] MEDS ORDERED: AMIODARONE HCL 200 MG TABLET ONE ×2 (08:18→16:29)
[2025-05-06] MEDS ORDERED: ASPIRIN 81 MG TAB.CHEW ONE (08:18)
[2025-05-06] MEDS ORDERED: FAMOTIDINE 20 MG TABLET ONE (08:18)
[2025-05-06] MEDS ORDERED: FOLIC ACID 1 MG TABLET ONE (08:19)
[2025-05-06] MEDS ORDERED: CYANOCOBALAMIN 1,000 MCG TABLET ONE (08:20)
[2025-05-06] MEDS ORDERED: CHOLECALCIFEROL 1,000 UNIT TABLET ONE (08:25)
[2025-05-06] MEDS ORDERED: ATORVASTATIN 20 MG TABLET ONE (20:32)
[2025-05-06] MEDS ORDERED: GABAPENTIN 100 MG CAPSULE ONE (20:32)
[2025-05-06] MEDS ORDERED: MELATONIN 3 MG TABLET ONE (20:32)
[2025-05-06] MEDS ORDERED: ACETAMINOPHEN 325 MG TABLET ONE (23:51)
[2025-05-07] VITALS (26 sets, daily range): BP systolic 85–149; BP diastolic 26–81; TEMP 97.8–100.6; O2SAT 100
[2025-05-07 04:58] LABS: PLATELET COUNT (AUTO) 257 K/uL (152-348); RED CELL DISTRIBUTION WIDTH 17.0 % (12.1-16.2); WHITE BLOOD COUNT (AUTO) 7.2 K/uL (3.6-10.2)
[2025-05-07 05:03] LABS: RED BLOOD CELL COUNT(AUTO) 2.26 MIL/uL (4.06-5.63)
[2025-05-07 05:06] LABS: CREATININE 3.9 mg/dL (0.6-1.3); SODIUM SERUM 134 mmol/L (136-145)
[2025-05-07 05:15] LABS: UREA NITROGEN, BLOOD 103 mg/dL (7-18)
[2025-05-07] MEDS ORDERED: ACETYLCYSTEINE 20% 800 MG/4 ML VIAL ONE ×2 (07:06→15:12)
[2025-05-07] MEDS ORDERED: IPRATROPIUM BROMIDE 0.5 MG/2.5 ML NEBU ONE ×3 (07:06→23:04)
[2025-05-07] MEDS ORDERED: SEVELAMER CARBONATE 800 MG TABLET PO ONE (08:52)
[2025-05-07] MEDS ORDERED: DOCUSATE SODIUM 100 MG/10 ML LIQUID UDC ONE (09:07)
[2025-05-07] MEDS ORDERED: FAMOTIDINE 20 MG TABLET ONE (09:07)
[2025-05-07] MEDS ORDERED: ASPIRIN 81 MG TAB.CHEW ONE (09:08)
[2025-05-07] MEDS ORDERED: AMIODARONE HCL 200 MG TABLET ONE ×2 (09:08→17:06)
[2025-05-07] MEDS ORDERED: CYANOCOBALAMIN 1,000 MCG TABLET ONE (09:10)
[2025-05-07] MEDS ORDERED: CHOLECALCIFEROL 1,000 UNIT TABLET ONE (09:20)
[2025-05-07] MEDS: NEUTRA PHOS PACKET PO ONE (12:01)
[2025-05-07] MEDS ORDERED: ACETYLCYSTEINE 10% 4ML VIAL ONE (23:04)
[2025-05-08] VITALS (62 sets, daily range): BP systolic 107–156; BP diastolic 25–101; TEMP 98–99.8; O2SAT 100
[2025-05-08 04:56] LABS: WHITE BLOOD COUNT (AUTO) 8.8 K/uL (3.6-10.2)
[2025-05-08 04:58] LABS: PLATELET COUNT (AUTO) 336 K/uL (152-348); RED CELL DISTRIBUTION WIDTH 17.1 % (12.1-16.2)
[2025-05-08 04:59] LABS: RED BLOOD CELL COUNT(AUTO) 2.25 MIL/uL (4.06-5.63)
[2025-05-08 05:04] LABS: NEUTROPHILS % (MANUAL) 0 % (42-75)
[2025-05-08 05:14] LABS: ASPARTATE AMINOTRANSFERASE 34 U/L (15-37); CREATININE 3.1 mg/dL (0.6-1.3); SODIUM SERUM 139 mmol/L (136-145); TOTAL PROTEIN, SERUM 6.3 g/dL (6.4-8.2); UREA NITROGEN, BLOOD 68 mg/dL (7-18)
[2025-05-08] MEDS ORDERED: ACETYLCYSTEINE 20% 800 MG/4 ML VIAL ONE ×3 (07:05→23:49)
[2025-05-08] MEDS ORDERED: IPRATROPIUM BROMIDE 0.5 MG/2.5 ML NEBU ONE ×3 (07:05→23:49)
[2025-05-08] MEDS ORDERED: DOCUSATE SODIUM 100 MG/10 ML LIQUID UDC ONE ×2 (08:38→20:30)
[2025-05-08] MEDS ORDERED: ASPIRIN 81 MG TAB.CHEW ONE (08:38)
[2025-05-08] MEDS ORDERED: AMIODARONE HCL 200 MG TABLET ONE (08:39)
[2025-05-08] MEDS ORDERED: FAMOTIDINE 20 MG TABLET ONE (08:39)
[2025-05-08] MEDS ORDERED: CHOLECALCIFEROL 1,000 UNIT TABLET ONE (08:39)
[2025-05-08] MEDS ORDERED: FENTANYL CITRATE 100 MCG/2 ML AMPUL ONE (14:40)
[2025-05-08] MEDS ORDERED: MIDAZOLAM HCL 2 MG/2 ML VIAL ONE (14:41)
[2025-05-08] MEDS: MIDAZOLAM HCL 2 MG/2 ML VIAL IV PRN (15:58)
[2025-05-08] MEDS: FENTANYL CITRATE 100 MCG/2 ML AMPUL IV PRN (15:58)
[2025-05-08] MEDS: VECURONIUM BROMIDE 10 MG VIAL IV PRN (16:02)
[2025-05-08] MEDS ORDERED: MELATONIN 3 MG TABLET ONE (20:30)
[2025-05-08] MEDS ORDERED: ATORVASTATIN 20 MG TABLET ONE (20:31)
[2025-05-08] MEDS ORDERED: GABAPENTIN 100 MG CAPSULE ONE (20:33)
[2025-05-09] VITALS (28 sets, daily range): BP systolic 89–136; BP diastolic 26–63; TEMP 98.2–99.1; O2SAT 98–100
[2025-05-09 04:51] LABS: PLATELET COUNT (AUTO) 279 K/uL (152-348); RED CELL DISTRIBUTION WIDTH 17.1 % (12.1-16.2); WHITE BLOOD COUNT (AUTO) 8.3 K/uL (3.6-10.2)
[2025-05-09 04:52] LABS: RED BLOOD CELL COUNT(AUTO) 2.25 MIL/uL (4.06-5.63)
[2025-05-09 04:58] LABS: CREATININE 4.2 mg/dL (0.6-1.3); SODIUM SERUM 141 mmol/L (136-145)
[2025-05-09 05:03] LABS: UREA NITROGEN, BLOOD 117 mg/dL (7-18)
[2025-05-09] MEDS ORDERED: PANTOPRAZOLE ORAL SUSPENSION 40 MG SUSPDR.PKT ONE (05:10)
[2025-05-09] MEDS: PANTOPRAZOLE ORAL SUSPENSION 40 MG SUSPDR.PKT NG SCH (05:24)
[2025-05-09] MEDS ORDERED: ACETYLCYSTEINE 20% 800 MG/4 ML VIAL ONE ×2 (06:59→15:08)
[2025-05-09] MEDS ORDERED: IPRATROPIUM BROMIDE 0.5 MG/2.5 ML NEBU ONE ×2 (07:00→15:08)
[2025-05-09] MEDS ORDERED: FAMOTIDINE 20 MG TABLET ONE (08:17)
[2025-05-09] MEDS ORDERED: AMIODARONE HCL 200 MG TABLET ONE ×2 (08:17→16:24)
[2025-05-09] MEDS ORDERED: DOCUSATE SODIUM 100 MG/10 ML LIQUID UDC ONE (08:17)
[2025-05-09] MEDS ORDERED: ASPIRIN 81 MG TAB.CHEW ONE (08:17)
[2025-05-09] MEDS ORDERED: CHOLECALCIFEROL 1,000 UNIT TABLET ONE (08:18)
[2025-05-09] MEDS ORDERED: ACETAMINOPHEN 325 MG TABLET ONE (16:20)
[2025-05-10] VITALS (24 sets, daily range): BP systolic 107–151; BP diastolic 56–74; TEMP 98.8–100.8; O2SAT 89–100
[2025-05-10 05:09] LABS: WHITE BLOOD COUNT (AUTO) 6.9 K/uL (3.6-10.2)
[2025-05-10 05:11] LABS: PLATELET COUNT (AUTO) 268 K/uL (152-348); RED CELL DISTRIBUTION WIDTH 15.8 % (12.1-16.2)
[2025-05-10 05:12] LABS: RED BLOOD CELL COUNT(AUTO) 2.41 MIL/uL (4.06-5.63)
[2025-05-10 05:20] LABS: CREATININE 3.1 mg/dL (0.6-1.3); SODIUM SERUM 141 mmol/L (136-145); UREA NITROGEN, BLOOD 70 mg/dL (7-18)
[2025-05-10] MEDS: ACETAMINOPHEN 650 MG SUPP.RECT RC PRN (10:05)
[2025-05-10 12:53] LABS: *OCCULT BLOOD STOOL POSITIVE (NEGATIVE)
[2025-05-10] MEDS ORDERED: PROPOFOL 200 MG/20 ML BOTTLE ONE (15:00)
[2025-05-10] MEDS ORDERED: LIDOCAINE-MPF 2% 5 ML VIAL ONE (15:00)
[2025-05-10] MEDS ORDERED: SODIUM PHOSPHATE MM 7.5 MMOL in IV NORMAL SALINE 100 ML IV ONE (15:15)
[2025-05-10] MEDS: SODIUM PHOSPHATE MM 7.5 MMOL in IV NORMAL SALINE 100 ML IV ONE (15:56)
[2025-05-10] MEDS: PANTOPRAZOLE SODIUM 40 MG VIAL IV SCH (21:45)
[2025-05-11] VITALS (33 sets, daily range): BP systolic 53–175; BP diastolic 19–88; TEMP 98–100.1; O2SAT 99–100
[2025-05-11 04:37] LABS: PLATELET COUNT (AUTO) 328 K/uL (152-348); RED CELL DISTRIBUTION WIDTH 17.3 % (12.1-16.2); WHITE BLOOD COUNT (AUTO) 8.6 K/uL (3.6-10.2)
[2025-05-11 04:38] LABS: RED BLOOD CELL COUNT(AUTO) 2.43 MIL/uL (4.06-5.63)
[2025-05-11 05:21] LABS: ASPARTATE AMINOTRANSFERASE 37 U/L (15-37); CREATININE 4.6 mg/dL (0.6-1.3); SODIUM SERUM 141 mmol/L (136-145); TOTAL PROTEIN, SERUM 6.7 g/dL (6.4-8.2)
[2025-05-11 05:33] LABS: UREA NITROGEN, BLOOD 93 mg/dL (7-18)
[2025-05-11 06:24] LABS: ABG BASE EXCESS -0.2 mmol/L (-2.0-3.0); ABG HCO3 22.6 mmol/L (21.0-28.0); ABG PCO2 30.3 mmHg (35.0-48.0); ABG PH 7.490 (7.350-7.450); ABG PO2 106.2 mmHg (83.0-108.0); ABG SITE RIGHT RADIAL; ABG TOTAL HEMOGLOBIN 10.0 G/dL (13.5-17.5); AaDO2 98.3 mmHg; FIO2 30.0 %; SET RATE, BG 14.0; VT, ABG 470 mL
[2025-05-11] MEDS ORDERED: MEROPENEM 500 MG in IV NORMAL SALINE 50 ML IV SCH (13:00)
[2025-05-11 17:45] LABS: PLATELET COUNT (AUTO) 319 K/uL (152-348); RED CELL DISTRIBUTION WIDTH 17.5 % (12.1-16.2); WHITE BLOOD COUNT (AUTO) 7.1 K/uL (3.6-10.2)
[2025-05-11 17:51] LABS: RED BLOOD CELL COUNT(AUTO) 2.30 MIL/uL (4.06-5.63)
[2025-05-11 19:07] LABS: *BILIRUBIN,URIN NEGATIVE (NEGATIVE); *BLOOD, URINE 2+ (NEGATIVE); *CLARITY,URINE CLOUDY (CLEAR); *COLOR,URINE YELLOW (YELLOW); *KETONES,URINE NEGATIVE (NEGATIVE); *PROTEIN,URINE 3+ (NEGATIVE); *UROBILINOGEN,URINE 0.2 E.U./dl (NORMAL); LEUKOCYTE ESTERASE ,URINE 3+ (NEGATIVE); NITRITE, URINE NEGATIVE (NEGATIVE); UGLUCOSE NEGATIVE (NEGATIVE)
[2025-05-11 19:15] LABS: SQUAMOUS EPITHELIAL CELL,UR FEW /HPF (NONE SEEN)
[2025-05-11 19:16] LABS: YEAST,URINE FEW /HPF (NONE SEEN)
[2025-05-11] MEDS: MEROPENEM 500 MG in IV NORMAL SALINE 50 ML IV ONE (20:15)
[2025-05-11] MEDS ORDERED: PHENYLEPHRINE IV 100 MG in IV NORMAL SALINE 240 ML IV PRN (22:45)
[2025-05-11] MEDS: FLUCONAZOLE 100 MG TABLET GT ONE (22:53)
[2025-05-11] MEDS ORDERED: EPOETIN ALFA-EPBX 10,000 UNIT/ML VIAL ONE (23:06)
[2025-05-12] VITALS (30 sets, daily range): BP systolic 116–166; BP diastolic 33–112; TEMP 98–99.8; O2SAT 99–100
[2025-05-12 04:19] LABS: PLATELET COUNT (AUTO) 308 K/uL (152-348); RED BLOOD CELL COUNT(AUTO) 2.92 MIL/uL (4.06-5.63); RED CELL DISTRIBUTION WIDTH 16.4 % (12.1-16.2); WHITE BLOOD COUNT (AUTO) 8.0 K/uL (3.6-10.2)
[2025-05-12 04:30] LABS: CREATININE 3.5 mg/dL (0.6-1.3); SODIUM SERUM 136 mmol/L (136-145); UREA NITROGEN, BLOOD 64 mg/dL (7-18)
[2025-05-12 05:28] LABS: ABG BASE EXCESS 0.1 mmol/L (-2.0-3.0); ABG HCO3 23.1 mmol/L (21.0-28.0); ABG PCO2 31.4 mmHg (35.0-48.0); ABG PH 7.485 (7.350-7.450); ABG PO2 116.5 mmHg (83.0-108.0); ABG SITE LEFT FEMORAL; ABG TOTAL HEMOGLOBIN 9.1 G/dL (13.5-17.5); AaDO2 98.6 mmHg; FIO2 30.0 %; PEEP,BG 5.0 cmH20; SET RATE, BG 14.0; VT, ABG 470 mL
[2025-05-12] MEDS: MEROPENEM 500 MG in IV NORMAL SALINE 50 ML IV SCH (13:31)
[2025-05-12 16:11] LABS: HIV-1/2 ANTIBODY NON REACTIVE (NONREACTIVE)
[2025-05-13] VITALS (19 sets, daily range): BP systolic 104–168; BP diastolic 53–83; TEMP 97.9–99.2; O2SAT 98–100
[2025-05-13 05:09] LABS: PLATELET COUNT (AUTO) 308 K/uL (152-348); RED BLOOD CELL COUNT(AUTO) 2.80 MIL/uL (4.06-5.63); RED CELL DISTRIBUTION WIDTH 17.1 % (12.1-16.2); WHITE BLOOD COUNT (AUTO) 8.3 K/uL (3.6-10.2)
[2025-05-13 05:51] LABS: CREATININE 4.8 mg/dL (0.6-1.3); SODIUM SERUM 136 mmol/L (136-145)
[2025-05-13 05:52] LABS: ASPARTATE AMINOTRANSFERASE 30 U/L (15-37); TOTAL PROTEIN, SERUM 6.2 g/dL (6.4-8.2)
[2025-05-13 06:04] LABS: UREA NITROGEN, BLOOD 89 mg/dL (7-18)
[2025-05-13] MEDS: NEPRO 1000 ML GT PRN (08:28)
[2025-05-13] MEDS: EPOETIN ALFA-EPBX 10,000 UNIT/ML VIAL SQ SCH (21:08)
[2025-05-14] VITALS (14 sets, daily range): BP systolic 90–171; BP diastolic 23–84; TEMP 97.5–100.3; O2SAT 98–100
[2025-05-14] MEDS: ACETAMINOPHEN 325 MG TABLET PO PRN (02:15)
[2025-05-14 04:57] LABS: PLATELET COUNT (AUTO) 271 K/uL (152-348); RED BLOOD CELL COUNT(AUTO) 2.73 MIL/uL (4.06-5.63); RED CELL DISTRIBUTION WIDTH 17.5 % (12.1-16.2); WHITE BLOOD COUNT (AUTO) 8.9 K/uL (3.6-10.2)
[2025-05-14 05:08] LABS: CREATININE 3.7 mg/dL (0.6-1.3); SODIUM SERUM 137 mmol/L (136-145); UREA NITROGEN, BLOOD 59 mg/dL (7-18)
[2025-05-14] MEDS ORDERED: MELATONIN 3 MG TABLET ONE (20:35)
[2025-05-14] MEDS ORDERED: GABAPENTIN 100 MG CAPSULE ONE (20:35)
[2025-05-14] MEDS ORDERED: PANTOPRAZOLE SODIUM 40 MG VIAL ONE (20:35)
[2025-05-14] MEDS ORDERED: TAMSULOSIN HCL 0.4 MG CAP.SR.24H ONE (20:36)
[2025-05-14] MEDS ORDERED: ACETYLCYSTEINE 20% 800 MG/4 ML VIAL ONE (23:36)
[2025-05-14] MEDS ORDERED: IPRATROPIUM BROMIDE 0.5 MG/2.5 ML NEBU ONE (23:37)
[2025-05-15] VITALS (19 sets, daily range): BP systolic 94–141; BP diastolic 30–85; TEMP 97.5–99.8; O2SAT 93–100
[2025-05-15 01:17] LABS: ABG BASE EXCESS -0.7 mmol/L (-2.0-3.0); ABG HCO3 24.0 mmol/L (21.0-28.0); ABG PCO2 39.8 mmHg (35.0-48.0); ABG PH 7.398 (7.350-7.450); ABG PO2 345.5 mmHg (83.0-108.0); ABG SITE RIGHT RADIAL; ABG TOTAL HEMOGLOBIN 10.2 G/dL (13.5-17.5); AaDO2 99.8 mmHg; FIO2 30.0 %; PEEP,BG 5.0 cmH20
[2025-05-15 01:17] LABS: ABG BASE EXCESS 3.0 mmol/L (-2.0-3.0); ABG HCO3 27.1 mmol/L (21.0-28.0); ABG PCO2 39.2 mmHg (35.0-48.0); ABG PH 7.457 (7.350-7.450); ABG PO2 92.4 mmHg (83.0-108.0); ABG SITE LEFT FEMORAL; ABG TOTAL HEMOGLOBIN 8.5 G/dL (13.5-17.5); AaDO2 97.4 mmHg; FIO2 30.0 %; PEEP,BG 5.0 cmH20; SET RATE, BG 14.0; VT, ABG 450 mL
[2025-05-15 05:05] LABS: PLATELET COUNT (AUTO) 319 K/uL (152-348); RED BLOOD CELL COUNT(AUTO) 2.66 MIL/uL (4.06-5.63); RED CELL DISTRIBUTION WIDTH 17.2 % (12.1-16.2); WHITE BLOOD COUNT (AUTO) 12.2 K/uL (3.6-10.2)
[2025-05-15 05:18] LABS: CREATININE 4.8 mg/dL (0.6-1.3); SODIUM SERUM 133 mmol/L (136-145)
[2025-05-15 05:23] LABS: UREA NITROGEN, BLOOD 103 mg/dL (7-18)
[2025-05-15] MEDS ORDERED: ACETYLCYSTEINE 20% 800 MG/4 ML VIAL ONE (06:56)
[2025-05-15] MEDS ORDERED: IPRATROPIUM BROMIDE 0.5 MG/2.5 ML NEBU ONE (06:56)
[2025-05-15 07:17] LABS: ABG BASE EXCESS 2.7 mmol/L (-2.0-3.0); ABG HCO3 26.5 mmol/L (21.0-28.0); ABG PCO2 37.3 mmHg (35.0-48.0); ABG PH 7.469 (7.350-7.450); ABG PO2 57.4 mmHg (83.0-108.0); ABG SITE RIGHT RADIAL; ABG TOTAL HEMOGLOBIN 8.0 G/dL (13.5-17.5); AaDO2 91.6 mmHg; FIO2 28.0 %; FLOW, BLOOD GAS 5.00 L/min (0.00-30.00)
[2025-05-15] MEDS ORDERED: AMIODARONE HCL 200 MG TABLET ONE (08:10)
[2025-05-15] MEDS ORDERED: PANTOPRAZOLE SODIUM 40 MG VIAL ONE (08:17)
[2025-05-15] MEDS ORDERED: ACETAMINOPHEN 325 MG TABLET ONE (08:22)
[2025-05-16] VITALS (20 sets, daily range): BP systolic 127–169; BP diastolic 32–100; TEMP 98–99.5; O2SAT 95–100
[2025-05-16 07:21] LABS: ASPARTATE AMINOTRANSFERASE 24 U/L (15-37); CREATININE 3.8 mg/dL (0.6-1.3); SODIUM SERUM 137 mmol/L (136-145); TOTAL PROTEIN, SERUM 5.9 g/dL (6.4-8.2); UREA NITROGEN, BLOOD 77 mg/dL (7-18)
[2025-05-16 07:24] LABS: PLATELET COUNT (AUTO) 213 K/uL (152-348); RED CELL DISTRIBUTION WIDTH 17.3 % (12.1-16.2); WHITE BLOOD COUNT (AUTO) 7.9 K/uL (3.6-10.2)
[2025-05-16 07:38] LABS: RED BLOOD CELL COUNT(AUTO) 2.11 MIL/uL (4.06-5.63)
[2025-05-16 08:51] LABS: EOSINOPHILS % (MANUAL) 2 % (0-8); LYMPHOCYTES % (MANUAL) 8 % (20-40); MONOCYTES % (MANUAL) 7 % (2-10); NEUTROPHILS % (MANUAL) 83 % (42-75); PLATELET ESTIMATE ADEQUATE
[2025-05-16 17:56] LABS: IRON, SERUM 41 ug/dL (50-175)
[2025-05-16 18:18] LABS: FIBRINOGEN ACTIVITY 361.0 mg/dL (210-360)
[2025-05-16] MEDS: diphenhydrAMINE 50 MG/1 ML VIAL IV PRN (20:18)
[2025-05-17] VITALS (12 sets, daily range): BP systolic 130–165; BP diastolic 42–52; TEMP 98.4–99.7; O2SAT 96–100
[2025-05-17 06:55] LABS: PLATELET COUNT (AUTO) 175 K/uL (152-348); RED CELL DISTRIBUTION WIDTH 17.0 % (12.1-16.2); WHITE BLOOD COUNT (AUTO) 8.3 K/uL (3.6-10.2)
[2025-05-17 07:03] LABS: RED BLOOD CELL COUNT(AUTO) 2.47 MIL/uL (4.06-5.63)
[2025-05-17 07:11] LABS: CREATININE 3.0 mg/dL (0.6-1.3); SODIUM SERUM 138 mmol/L (136-145); UREA NITROGEN, BLOOD 61 mg/dL (7-18)
[2025-05-18] VITALS (19 sets, daily range): BP systolic 107–154; BP diastolic 37–78; TEMP 97.6–98.4; O2SAT 98–100
[2025-05-18 06:47] LABS: PLATELET COUNT (AUTO) 194 K/uL (152-348); RED BLOOD CELL COUNT(AUTO) 2.55 MIL/uL (4.06-5.63); RED CELL DISTRIBUTION WIDTH 17.4 % (12.1-16.2); WHITE BLOOD COUNT (AUTO) 9.7 K/uL (3.6-10.2)
[2025-05-18 07:11] LABS: CREATININE 4.4 mg/dL (0.6-1.3); SODIUM SERUM 137 mmol/L (136-145)
[2025-05-18 07:45] LABS: UREA NITROGEN, BLOOD 91 mg/dL (7-18)
[2025-05-18 09:07] LABS: *IMMUNOGLOBULIN G, SERUM 1513 mg/dL (603-1613); IMMUNOGLOBULIN A, SERUM 481 mg/dL (61-437); IMMUNOGLOBULIN M, SERUM 87 mg/dL (15-143)
[2025-05-18 11:07] LABS: FOLATE (FOLIC ACID), SERUM >20.0 ng/mL (>3.0); FREE KAPPA LT CHAINS SERUM 388.7 mg/L (3.3-19.4); FREE LAMBDA LT CHAIN SERUM 377.9 mg/L (5.7-26.3); KAPPA/LAMBDA RATIO SERUM 1.03 (0.26-1.65)
[2025-05-19] VITALS (13 sets, daily range): BP systolic 127–147; BP diastolic 36–68; TEMP 97.5–98.5; O2SAT 94–100
[2025-05-19 07:10] LABS: PLATELET COUNT (AUTO) 161 K/uL (152-348); RED BLOOD CELL COUNT(AUTO) 2.65 MIL/uL (4.06-5.63); RED CELL DISTRIBUTION WIDTH 17.5 % (12.1-16.2); WHITE BLOOD COUNT (AUTO) 9.5 K/uL (3.6-10.2)
[2025-05-19 07:34] LABS: CREATININE 3.2 mg/dL (0.6-1.3); SODIUM SERUM 136 mmol/L (136-145); UREA NITROGEN, BLOOD 58 mg/dL (7-18)
[2025-05-20] VITALS (22 sets, daily range): BP systolic 102–139; BP diastolic 51–65; TEMP 97.3–98.4; O2SAT 94–100
[2025-05-20 06:55] LABS: PLATELET COUNT (AUTO) 178 K/uL (152-348); RED CELL DISTRIBUTION WIDTH 19.4 % (12.1-16.2); WHITE BLOOD COUNT (AUTO) 8.6 K/uL (3.6-10.2)
[2025-05-20 07:01] LABS: SODIUM SERUM 133 mmol/L (136-145)
[2025-05-20 07:02] LABS: CREATININE 4.4 mg/dL (0.6-1.3)
[2025-05-20 07:18] LABS: RED BLOOD CELL COUNT(AUTO) 2.34 MIL/uL (4.06-5.63)
[2025-05-20 07:33] LABS: UREA NITROGEN, BLOOD 108 mg/dL (7-18)
[2025-05-20] MEDS: diphenhydrAMINE 50 MG/1 ML VIAL IV ONE (18:00)
[2025-05-20] MEDS: ACETAMINOPHEN 325 MG TABLET PO ONE (18:00)
[2025-05-21] VITALS (17 sets, daily range): BP systolic 103–139; BP diastolic 45–108; TEMP 97.5–98.4; O2SAT 6–100
[2025-05-21 06:47] LABS: PLATELET COUNT (AUTO) 136 K/uL (152-348); RED BLOOD CELL COUNT(AUTO) 2.53 MIL/uL (4.06-5.63); RED CELL DISTRIBUTION WIDTH 19.1 % (12.1-16.2); WHITE BLOOD COUNT (AUTO) 8.6 K/uL (3.6-10.2)
[2025-05-21 07:08] LABS: CREATININE 3.6 mg/dL (0.6-1.3); SODIUM SERUM 136 mmol/L (136-145); UREA NITROGEN, BLOOD 76 mg/dL (7-18)
[2025-05-21 08:08] LABS: FIBRINOGEN ACTIVITY 357.0 mg/dL (210-360)
[2025-05-22] VITALS (15 sets, daily range): BP systolic 97–149; BP diastolic 38–59; TEMP 96.9–98.2; O2SAT 6–99
[2025-05-22 07:08] LABS: PLATELET COUNT (AUTO) 170 K/uL (152-348); RED BLOOD CELL COUNT(AUTO) 2.63 MIL/uL (4.06-5.63); RED CELL DISTRIBUTION WIDTH 20.5 % (12.1-16.2); WHITE BLOOD COUNT (AUTO) 11.1 K/uL (3.6-10.2)
[2025-05-22 07:23] LABS: CREATININE 4.8 mg/dL (0.6-1.3); SODIUM SERUM 133 mmol/L (136-145)
[2025-05-22 07:40] LABS: UREA NITROGEN, BLOOD 111 mg/dL (7-18)
[2025-05-22] MEDS: AMIODARONE HCL 200 MG TABLET PO SCH (08:44)
[2025-05-22] MEDS ORDERED: QUETIAPINE FUMARATE 25 MG TABLET PO SCH (14:15)
[2025-05-22] MEDS: QUETIAPINE FUMARATE 25 MG TABLET GT ONE (14:36)
[2025-05-22] MEDS: TEMAZEPAM 7.5 MG CAPSULE PO PRN (22:43)
[2025-05-23] VITALS (24 sets, daily range): BP systolic 120–199; BP diastolic 36–64; TEMP 96.8–99.1; O2SAT 96–100
[2025-05-23] MEDS: ACETAMINOPHEN 325 MG TABLET PO ONE ×2 (01:31→12:38)
[2025-05-23] MEDS: diphenhydrAMINE 50 MG/1 ML VIAL IV ONE ×2 (01:31→12:37)
[2025-05-23 05:08] LABS: A/G RATIO 0.7 (0.7-1.7); BETA GLOBULIN 0.8 g/dL (0.7-1.3); GLOBULIN, TOTAL 3.3 g/dL (2.2-3.9); M-SPIKE 0.1 g/dL (Not Observed); PROTEIN, TOTAL 5.6 g/dL (6.0-8.5)
[2025-05-23 07:25] LABS: CREATININE 3.3 mg/dL (0.6-1.3); SODIUM SERUM 134 mmol/L (136-145); UREA NITROGEN, BLOOD 77 mg/dL (7-18)
[2025-05-23 07:32] LABS: PLATELET COUNT (AUTO) 164 K/uL (152-348); RED CELL DISTRIBUTION WIDTH 20.3 % (12.1-16.2); WHITE BLOOD COUNT (AUTO) 9.5 K/uL (3.6-10.2)
[2025-05-23 07:35] LABS: RED BLOOD CELL COUNT(AUTO) 2.25 MIL/uL (4.06-5.63)
[2025-05-23 09:48] LABS: ABG BASE EXCESS 1.8 mmol/L (-2.0-3.0); ABG HCO3 25.2 mmol/L (21.0-28.0); ABG PCO2 34.1 mmHg (35.0-48.0); ABG PH 7.487 (7.350-7.450); ABG PO2 56.5 mmHg (83.0-108.0); ABG SITE RIGHT RADIAL; ABG TOTAL HEMOGLOBIN 7.8 G/dL (13.5-17.5); AaDO2 91.8 mmHg; FIO2 40.0 %; FLOW, BLOOD GAS 10.00 L/min (0.00-30.00)
[2025-05-24] VITALS (11 sets, daily range): BP systolic 99–139; BP diastolic 25–56; TEMP 97.4–98.4; O2SAT 95–99
[2025-05-24 06:53] LABS: PLATELET COUNT (AUTO) 171 K/uL (152-348); RED CELL DISTRIBUTION WIDTH 20.5 % (12.1-16.2); WHITE BLOOD COUNT (AUTO) 9.5 K/uL (3.6-10.2)
[2025-05-24 06:55] LABS: CREATININE 4.7 mg/dL (0.6-1.3); SODIUM SERUM 132 mmol/L (136-145)
[2025-05-24 07:11] LABS: RED BLOOD CELL COUNT(AUTO) 2.42 MIL/uL (4.06-5.63)
[2025-05-24 07:16] LABS: FIBRINOGEN ACTIVITY 423.0 mg/dL (210-360)
[2025-05-24 07:59] LABS: UREA NITROGEN, BLOOD 113 mg/dL (7-18)
[2025-05-24] MEDS ORDERED: LIDOCAINE HCL 1% 20 ML VIAL IJ PRN (14:45)
[2025-05-24] MEDS: ONDANSETRON 4 MG/2 ML VIAL IV PRN (22:30)
[2025-05-24] MEDS: HYDROCODONE/APAP 5-325MG TABLET PO PRN (22:31)
[2025-05-25] VITALS (13 sets, daily range): BP systolic 112–129; BP diastolic 48–65; TEMP 97.5–98.4; O2SAT 96–100
[2025-05-25] MEDS: diphenhydrAMINE 50 MG/1 ML VIAL IV PRN (00:48)
[2025-05-25] MEDS ORDERED: LIDOCAINE HCL 1% 20 ML VIAL ONE (02:02)
[2025-05-25] MEDS: LORAZEPAM 2 MG/1 ML VIAL IV ONE (05:29)
[2025-05-25 06:52] LABS: PLATELET COUNT (AUTO) 171 K/uL (152-348); RED CELL DISTRIBUTION WIDTH 20.5 % (12.1-16.2); WHITE BLOOD COUNT (AUTO) 8.3 K/uL (3.6-10.2)
[2025-05-25 07:02] LABS: RED BLOOD CELL COUNT(AUTO) 2.45 MIL/uL (4.06-5.63)
[2025-05-25 07:10] LABS: CREATININE 3.5 mg/dL (0.6-1.3); SODIUM SERUM 133 mmol/L (136-145)
[2025-05-25 07:14] LABS: UREA NITROGEN, BLOOD 83 mg/dL (7-18)
[2025-05-26] VITALS (11 sets, daily range): BP systolic 134–146; BP diastolic 56–67; TEMP 97.5–98; O2SAT 97–99
[2025-05-26 07:21] LABS: CREATININE 4.6 mg/dL (0.6-1.3); SODIUM SERUM 131 mmol/L (136-145)
[2025-05-26 07:25] LABS: PLATELET COUNT (AUTO) 202 K/uL (152-348); RED BLOOD CELL COUNT(AUTO) 2.60 MIL/uL (4.06-5.63); RED CELL DISTRIBUTION WIDTH 20.4 % (12.1-16.2); WHITE BLOOD COUNT (AUTO) 8.8 K/uL (3.6-10.2)
[2025-05-26 07:30] LABS: UREA NITROGEN, BLOOD 112 mg/dL (7-18)
[2025-05-26] MEDS ORDERED: MIDODRINE HCL 5 MG TABLET GT PRN (07:34)
[2025-05-26] MEDS: CYANOCOBALAMIN 100 MCG TABLET GT SCH (08:19)
[2025-05-26] MEDS: FOLIC ACID/VITAMIN B COMP W-C TABLET GT SCH (08:19)
[2025-05-26] MEDS: AMIODARONE HCL 200 MG TABLET GT SCH (08:19)
[2025-05-26] MEDS: ARGININE/GLUTAMINE/CALCIUM BMB 1 EACH POWD.PACK GT SCH (08:20)
[2025-05-26] MEDS: FERROUS SULFATE 300 MG/5 ML LIQUID UDC GT SCH (08:20)
[2025-05-26 09:55] LABS: *PROTEIN,URINE 3+ (NEGATIVE); *UROBILINOGEN,URINE 0.2 E.U./dl (NORMAL); LEUKOCYTE ESTERASE ,URINE 3+ (NEGATIVE); NITRITE, URINE NEGATIVE (NEGATIVE)
[2025-05-26 09:56] LABS: UGLUCOSE NEGATIVE (NEGATIVE)
[2025-05-26] MEDS: DOCUSATE SODIUM 100 MG/10 ML LIQUID UDC GT SCH (09:56)
[2025-05-26 09:57] LABS: *BLOOD, URINE 3+ (NEGATIVE)
[2025-05-26 09:58] LABS: *KETONES,URINE NEGATIVE (NEGATIVE)
[2025-05-26 10:00] LABS: *BILIRUBIN,URIN NEGATIVE (NEGATIVE); *CLARITY,URINE CLOUDY (CLEAR); *COLOR,URINE DARK YELLOW (YELLOW)
[2025-05-26] MEDS ORDERED: SENNOSIDES/DOCUSATE SODIUM TABLET PO SCH (18:00)
[2025-05-26] MEDS: GABAPENTIN 100 MG CAPSULE GT SCH (20:44)
[2025-05-26] MEDS: SENNOSIDES 1 TABLET GT SCH (20:44)
[2025-05-26] MEDS: MELATONIN 3 MG TABLET GT SCH (20:44)
[2025-05-26] MEDS ORDERED: DOCUSATE SODIUM 100 MG/10 ML LIQUID UDC GT SCH (21:00)
[2025-05-27] VITALS (48 sets, daily range): BP systolic 100–148; BP diastolic 41–95; TEMP 97.2–99.1; O2SAT 96–100
[2025-05-27] MEDS: ACETAMINOPHEN 325 MG TABLET GT PRN (00:34)
[2025-05-27] MEDS: ALPRAZOLAM 0.25 MG TABLET GT PRN (02:11)
[2025-05-27 06:57] LABS: CREATININE 3.8 mg/dL (0.6-1.3); PLATELET COUNT (AUTO) 188 K/uL (152-348); RED BLOOD CELL COUNT(AUTO) 2.53 MIL/uL (4.06-5.63); RED CELL DISTRIBUTION WIDTH 20.3 % (12.1-16.2); SODIUM SERUM 136 mmol/L (136-145); UREA NITROGEN, BLOOD 76 mg/dL (7-18); WHITE BLOOD COUNT (AUTO) 7.5 K/uL (3.6-10.2)
[2025-05-27] MEDS: HYDROCODONE/APAP 5-325MG TABLET GT PRN (08:39)
[2025-05-27] MEDS ORDERED: LIDOCAINE HCL 1% 20 ML VIAL ONE (09:41)
[2025-05-27] MEDS ORDERED: ALBUMIN HUMAN 5% 250 ML ONE ×2 (12:16→12:23)
[2025-05-27] MEDS ORDERED: NOREPINEPHRINE BITARTRATE 4 MG/4 ML VIAL IV ONE (12:16)
[2025-05-27] MEDS ORDERED: PHENYLEPHRINE 10% OPHT DROP 5 ML BOTTLE ONE (12:16)
[2025-05-27] MEDS ORDERED: CALCIUM GLUCONATE 1 GM/10 ML VIAL IV ONE (12:25)
[2025-05-27] MEDS ORDERED: NOREPINEPHRINE 8MG/NS 250ML 250 ML IV PRN (12:30)
[2025-05-27] MEDS ORDERED: PHENYLEPHRINE IV 50 MG in IV NORMAL SALINE 245 ML IV PRN (12:30)
[2025-05-27] MEDS ORDERED: HEPARIN SODIUM,PORCINE 1,000 UNITS/ML VIAL ONE (12:32)
[2025-05-27] MEDS ORDERED: PHENYLEPHRINE IV 100 MG in IV NORMAL SALINE 240 ML IV PRN (14:00)
[2025-05-27 15:09] LABS: CREATININE 3.4 mg/dL (0.6-1.3); SODIUM SERUM 138 mmol/L (136-145); UREA NITROGEN, BLOOD 73 mg/dL (7-18)
[2025-05-27 15:16] LABS: ASPARTATE AMINOTRANSFERASE 83 U/L (15-37); TOTAL PROTEIN, SERUM 5.3 g/dL (6.4-8.2)
[2025-05-27 15:19] LABS: PLATELET COUNT (AUTO) 117 K/uL (152-348); RED BLOOD CELL COUNT(AUTO) 2.53 MIL/uL (4.06-5.63); RED CELL DISTRIBUTION WIDTH 17.1 % (12.1-16.2); WHITE BLOOD COUNT (AUTO) 10.3 K/uL (3.6-10.2)
[2025-05-27] MEDS: NOREPINEPHRINE 8MG/NS 250ML 250 ML IV PRN (15:23)
[2025-05-27] MEDS: EPOETIN ALFA-EPBX 10,000 UNIT/ML VIAL SQ SCH (17:07)
[2025-05-27] MEDS ORDERED: GABAPENTIN 100 MG CAPSULE ONE (21:25)
[2025-05-27] MEDS ORDERED: TAMSULOSIN HCL 0.4 MG CAP.SR.24H ONE (21:26)
[2025-05-27] MEDS ORDERED: PANTOPRAZOLE SODIUM 40 MG VIAL ONE (21:26)
[2025-05-27] MEDS ORDERED: MELATONIN 3 MG TABLET ONE (21:26)
[2025-05-27] MEDS ORDERED: HYDROCODONE/APAP 5-325MG TABLET ONE (21:27)
[2025-05-27] MEDS ORDERED: CEFAZOLIN 2 G in IV DEXTROSE 5% 100 ML IV SCH (22:00)
[2025-05-28] VITALS (47 sets, daily range): BP systolic 105–148; BP diastolic 42–62; TEMP 97.5–97.8; O2SAT 100
[2025-05-28] MEDS ORDERED: HYDROCODONE/APAP 5-325MG TABLET ONE ×2 (04:15→18:58)
[2025-05-28 04:59] LABS: PLATELET COUNT (AUTO) 138 K/uL (152-348); RED BLOOD CELL COUNT(AUTO) 2.95 MIL/uL (4.06-5.63); RED CELL DISTRIBUTION WIDTH 17.0 % (12.1-16.2); WHITE BLOOD COUNT (AUTO) 10.5 K/uL (3.6-10.2)
[2025-05-28 05:07] LABS: CREATININE 3.9 mg/dL (0.6-1.3); SODIUM SERUM 137 mmol/L (136-145)
[2025-05-28 05:10] LABS: UREA NITROGEN, BLOOD 84 mg/dL (7-18)
[2025-05-28] MEDS ORDERED: AMIODARONE HCL 200 MG TABLET ONE (09:49)
[2025-05-28] MEDS ORDERED: DOCUSATE SODIUM 100 MG/10 ML LIQUID UDC ONE (09:49)
[2025-05-28] MEDS ORDERED: PANTOPRAZOLE SODIUM 40 MG VIAL ONE ×2 (09:49→21:25)
[2025-05-28] MEDS: ALTEPLASE 2 MG VIAL IVP ONE (13:45)
[2025-05-28] MEDS ORDERED: CEFTRIAXONE /D5W 50ML IVPB **ER PYXIS IV ONE (17:04)
[2025-05-28] MEDS ORDERED: SULFAMETH/TRIMETH 800/160 MG TABLET ONE (20:04)
[2025-05-28] MEDS ORDERED: ENOXAPARIN SODIUM 40 MG/0.4 ML DISP.SYRIN SQ ONE (20:04)
[2025-05-28] MEDS ORDERED: GABAPENTIN 100 MG CAPSULE ONE (21:24)
[2025-05-28] MEDS ORDERED: TAMSULOSIN HCL 0.4 MG CAP.SR.24H ONE (21:25)
[2025-05-28] MEDS ORDERED: MELATONIN 3 MG TABLET ONE (21:25)
[2025-05-29] VITALS (52 sets, daily range): BP systolic 79–157; BP diastolic 17–91; TEMP 98.6–102.9; O2SAT 93–100
[2025-05-29 05:15] LABS: PLATELET COUNT (AUTO) 111 K/uL (152-348); RED BLOOD CELL COUNT(AUTO) 2.99 MIL/uL (4.06-5.63); RED CELL DISTRIBUTION WIDTH 17.9 % (12.1-16.2); WHITE BLOOD COUNT (AUTO) 13.8 K/uL (3.6-10.2)
[2025-05-29 05:31] LABS: CREATININE 3.7 mg/dL (0.6-1.3); SODIUM SERUM 136 mmol/L (136-145); UREA NITROGEN, BLOOD 67 mg/dL (7-18)
[2025-05-29 07:41] LABS: ABG BASE EXCESS -3.9 mmol/L (-2.0-3.0); ABG HCO3 19.7 mmol/L (21.0-28.0); ABG PCO2 30.5 mmHg (35.0-48.0); ABG PH 7.429 (7.350-7.450); ABG PO2 86.6 mmHg (83.0-108.0); ABG SITE LEFT RADIAL; ABG TOTAL HEMOGLOBIN 9.0 G/dL (13.5-17.5); AaDO2 96.9 mmHg; FIO2 30.0 %; PEEP,BG 0.0 cmH20; SET RATE, BG 10.0; VT, ABG 350 mL
[2025-05-29] MEDS ORDERED: PANTOPRAZOLE SODIUM 40 MG VIAL ONE ×2 (09:10→20:02)
[2025-05-29] MEDS ORDERED: FOLIC ACID 1 MG TABLET ONE (09:10)
[2025-05-29] MEDS ORDERED: AMIODARONE HCL 200 MG TABLET ONE (09:13)
[2025-05-29] MEDS ORDERED: DOCUSATE SODIUM 100 MG/10 ML LIQUID UDC ONE (09:23)
[2025-05-29] MEDS ORDERED: ACETAMINOPHEN 325 MG TABLET ONE (14:15)
[2025-05-29] MEDS ORDERED: NOREPINEPHRINE 8MG/NS 250ML 250 ML IV ONE (14:36)
[2025-05-29] MEDS ORDERED: ACETAMINOPHEN 325 MG SUPP ONE (16:39)
[2025-05-29] MEDS ORDERED: CEFTRIAXONE /D5W 50ML IVPB **ER PYXIS IV ONE (16:39)
[2025-05-29 18:49] LABS: PLATELET COUNT (AUTO) 139 K/uL (152-348); RED BLOOD CELL COUNT(AUTO) 2.67 MIL/uL (4.06-5.63); RED CELL DISTRIBUTION WIDTH 18.5 % (12.1-16.2); WHITE BLOOD COUNT (AUTO) 26.4 K/uL (3.6-10.2)
[2025-05-29 18:55] LABS: CREATININE 4.4 mg/dL (0.6-1.3); SODIUM SERUM 136 mmol/L (136-145)
[2025-05-29 18:59] LABS: UREA NITROGEN, BLOOD 81 mg/dL (7-18)
[2025-05-29] MEDS ORDERED: VANCOMYCIN IV 200 ML ONE (20:02)
[2025-05-29] MEDS ORDERED: GABAPENTIN 100 MG CAPSULE ONE (20:02)
[2025-05-29] MEDS: VANCOMYCIN IV 1,000 MG in IV DEXTROSE 5% 250 ML IV ONE (20:20)
[2025-05-29] MEDS ORDERED: MELATONIN 3 MG TABLET ONE (20:30)
[2025-05-29] MEDS ORDERED: TAMSULOSIN HCL 0.4 MG CAP.SR.24H ONE (20:30)
[2025-05-30] VITALS (95 sets, daily range): BP systolic 71–176; BP diastolic 20–85; TEMP 97.9–100.1; O2SAT 88–100
[2025-05-30] MEDS ORDERED: NOREPINEPHRINE 8MG/NS 250ML 250 ML IV ONE ×2 (00:45→16:38)
[2025-05-30 05:05] LABS: PLATELET COUNT (AUTO) 153 K/uL (152-348); RED BLOOD CELL COUNT(AUTO) 2.88 MIL/uL (4.06-5.63); RED CELL DISTRIBUTION WIDTH 18.3 % (12.1-16.2); WHITE BLOOD COUNT (AUTO) 25.0 K/uL (3.6-10.2)
[2025-05-30 05:16] LABS: CREATININE 5.1 mg/dL (0.6-1.3); SODIUM SERUM 130 mmol/L (136-145)
[2025-05-30 05:28] LABS: UREA NITROGEN, BLOOD 101 mg/dL (7-18)
[2025-05-30 05:51] LABS: LYMPHOCYTES % (MANUAL) 1 % (20-40); MONOCYTES % (MANUAL) 1 % (2-10); NEUTROPHILS % (MANUAL) 98 % (42-75)
[2025-05-30 05:52] LABS: PLATELET ESTIMATE ADEQUATE
[2025-05-30 07:39] LABS: ABG BASE EXCESS -3.2 mmol/L (-2.0-3.0); ABG HCO3 21.4 mmol/L (21.0-28.0); ABG PCO2 36.4 mmHg (35.0-48.0); ABG PH 7.388 (7.350-7.450); ABG PO2 97.9 mmHg (83.0-108.0); ABG SITE LEFT BRACHIAL; ABG TOTAL HEMOGLOBIN 8.9 G/dL (13.5-17.5); AaDO2 97.4 mmHg; FIO2 30.0 %; PEEP,BG 0.0 cmH20
[2025-05-30] MEDS ORDERED: DOCUSATE SODIUM 100 MG/10 ML LIQUID UDC ONE (08:36)
[2025-05-30] MEDS ORDERED: PANTOPRAZOLE SODIUM 40 MG VIAL ONE ×2 (08:36→20:09)
[2025-05-30] MEDS ORDERED: AMIODARONE HCL 200 MG TABLET ONE (08:36)
[2025-05-30] MEDS ORDERED: ACETAMINOPHEN 325 MG TABLET ONE (08:53)
[2025-05-30] MEDS ORDERED: ALPRAZOLAM 0.25 MG TABLET ONE (11:16)
[2025-05-30 11:22] LABS: LACTIC ACID 2.1 mmol/L (0.4-2.0)
[2025-05-30] MEDS ORDERED: HYDROCODONE/APAP 5-325MG TABLET ONE (12:05)
[2025-05-30] MEDS: IV NORMAL SALINE 500 ML IV ONE (13:51)
[2025-05-30] MEDS ORDERED: VANCOMYCIN IV 500 MG in IV DEXTROSE 5% 100 ML IV PRN (14:00)
[2025-05-30] MEDS ORDERED: GABAPENTIN 100 MG CAPSULE ONE (20:09)
[2025-05-30] MEDS ORDERED: TAMSULOSIN HCL 0.4 MG CAP.SR.24H ONE (20:09)
[2025-05-30] MEDS ORDERED: MELATONIN 3 MG TABLET ONE (20:09)
[2025-05-30] MEDS: VANCOMYCIN IV 1,000 MG in IV DEXTROSE 5% 250 ML IV ONE (20:26)
[2025-05-31] VITALS (96 sets, daily range): BP systolic 79–154; BP diastolic 19–136; TEMP 97.5–99.2; O2SAT 94–100
[2025-05-31] MEDS ORDERED: HYDROCODONE/APAP 5-325MG TABLET ONE (02:07)
[2025-05-31] MEDS ORDERED: ALPRAZOLAM 0.25 MG TABLET ONE (04:25)
[2025-05-31 05:15] LABS: PLATELET COUNT (AUTO) 145 K/uL (152-348); RED BLOOD CELL COUNT(AUTO) 2.52 MIL/uL (4.06-5.63); RED CELL DISTRIBUTION WIDTH 17.8 % (12.1-16.2); WHITE BLOOD COUNT (AUTO) 13.0 K/uL (3.6-10.2)
[2025-05-31 05:35] LABS: CREATININE 3.0 mg/dL (0.6-1.3); SODIUM SERUM 130 mmol/L (136-145); UREA NITROGEN, BLOOD 59 mg/dL (7-18)
[2025-05-31 06:15] LABS: ABG BASE EXCESS -0.3 mmol/L (-2.0-3.0); ABG HCO3 23.0 mmol/L (21.0-28.0); ABG PCO2 31.5 mmHg (35.0-48.0); ABG PH 7.481 (7.350-7.450); ABG PO2 84.6 mmHg (83.0-108.0); ABG SITE LEFT FEMORAL; ABG TOTAL HEMOGLOBIN 7.8 G/dL (13.5-17.5); AaDO2 97.1 mmHg; FIO2 30.0 %; PEEP,BG 0.0 cmH20
[2025-05-31] MEDS ORDERED: BISACODYL 10 MG SUPP.RECT RC ONE (07:53)
[2025-05-31] MEDS ORDERED: AMIODARONE HCL 200 MG TABLET ONE (08:06)
[2025-05-31] MEDS ORDERED: DOCUSATE SODIUM 100 MG/10 ML LIQUID UDC ONE (08:06)
[2025-05-31] MEDS ORDERED: ACETAMINOPHEN 325 MG TABLET ONE ×2 (08:08→22:29)
[2025-05-31] MEDS ORDERED: PANTOPRAZOLE SODIUM 40 MG VIAL ONE ×2 (08:09→20:12)
[2025-05-31] MEDS ORDERED: MIDODRINE HCL 5 MG TABLET ONE ×2 (10:32→20:09)
[2025-05-31] MEDS ORDERED: POTASSIUM CHLORIDE 20 MEQ POWDER PACKET ONE (10:34)
[2025-05-31] MEDS: MIDODRINE HCL 5 MG TABLET GT SCH (10:35)
[2025-05-31] MEDS: POTASSIUM CHLORIDE 20 MEQ POWDER PACKET GT ONE (10:35)
[2025-05-31] MEDS ORDERED: CEFEPIME (MAXEPIME) 1 G in IV DEXTROSE 5% 50 ML IV SCH (16:15)
[2025-05-31] MEDS ORDERED: GABAPENTIN 100 MG CAPSULE ONE (20:09)
[2025-05-31] MEDS ORDERED: TAMSULOSIN HCL 0.4 MG CAP.SR.24H ONE (20:09)
[2025-05-31] MEDS ORDERED: MELATONIN 3 MG TABLET ONE (20:09)
[2025-05-31] MEDS: CEFEPIME (MAXEPIME) 1 G in IV DEXTROSE 5% 50 ML IV SCH (22:07)
[2025-06-01] VITALS (100 sets, daily range): BP systolic 43–168; BP diastolic 5–137; TEMP 97.4–98.5; O2SAT 94–100
[2025-06-01] MEDS ORDERED: TEMAZEPAM 7.5 MG CAPSULE ONE (00:54)
[2025-06-01] MEDS: TEMAZEPAM 7.5 MG CAPSULE GT PRN (00:55)
[2025-06-01 05:32] LABS: CREATININE 4.3 mg/dL (0.6-1.3); SODIUM SERUM 132 mmol/L (136-145); UREA NITROGEN, BLOOD 75 mg/dL (7-18)
[2025-06-01 05:37] LABS: PLATELET COUNT (AUTO) 143 K/uL (152-348); RED CELL DISTRIBUTION WIDTH 17.5 % (12.1-16.2); WHITE BLOOD COUNT (AUTO) 8.3 K/uL (3.6-10.2)
[2025-06-01 05:38] LABS: RED BLOOD CELL COUNT(AUTO) 2.40 MIL/uL (4.06-5.63)
[2025-06-01 05:45] LABS: FIBRINOGEN ACTIVITY 414.0 mg/dL (210-360)
[2025-06-01 07:50] LABS: ABG BASE EXCESS -1.2 mmol/L (-2.0-3.0); ABG HCO3 23.1 mmol/L (21.0-28.0); ABG PCO2 36.3 mmHg (35.0-48.0); ABG PH 7.421 (7.350-7.450); ABG PO2 93.5 mmHg (83.0-108.0); ABG SITE LEFT RADIAL; ABG TOTAL HEMOGLOBIN 8.1 G/dL (13.5-17.5); AaDO2 97.3 mmHg; FIO2 28.0 %; FLOW, BLOOD GAS 5.00 L/min (0.00-30.00)
[2025-06-01] MEDS ORDERED: DOCUSATE SODIUM 100 MG/10 ML LIQUID UDC ONE (08:09)
[2025-06-01] MEDS ORDERED: AMIODARONE HCL 200 MG TABLET ONE (08:09)
[2025-06-01] MEDS ORDERED: PANTOPRAZOLE SODIUM 40 MG VIAL ONE ×2 (08:19→23:12)
[2025-06-01] MEDS ORDERED: MIDODRINE HCL 5 MG TABLET ONE ×2 (08:19→23:13)
[2025-06-01] MEDS ORDERED: ACETAMINOPHEN 325 MG TABLET ONE (14:40)
[2025-06-01] MEDS ORDERED: ALPRAZOLAM 0.25 MG TABLET ONE (14:40)
[2025-06-01] MEDS ORDERED: ALBUTEROL SULFATE 2.5 MG/3 ML NEBU ONE (17:25)
[2025-06-01] MEDS: ALBUTEROL SULFATE 2.5 MG/3 ML NEBU NEB PRN (17:27)
[2025-06-01 19:02] LABS: ABG BASE EXCESS 1.4 mmol/L (-2.0-3.0); ABG HCO3 22.5 mmol/L (21.0-28.0); ABG PCO2 23.3 mmHg (35.0-48.0); ABG PH 7.603 (7.350-7.450); ABG PO2 84.1 mmHg (83.0-108.0); ABG SITE LEFT RADIAL; ABG TOTAL HEMOGLOBIN 7.7 G/dL (13.5-17.5); AaDO2 97.8 mmHg; FIO2 28.0 %; FLOW, BLOOD GAS 5.00 L/min (0.00-30.00)
[2025-06-01] MEDS ORDERED: diphenhydrAMINE 50 MG/1 ML VIAL ONE (20:53)
[2025-06-01] MEDS: diphenhydrAMINE 50 MG/1 ML VIAL IV PRN (20:57)
[2025-06-01] MEDS ORDERED: GABAPENTIN 100 MG CAPSULE ONE (23:12)
[2025-06-01] MEDS ORDERED: MELATONIN 3 MG TABLET ONE (23:12)
[2025-06-01] MEDS ORDERED: TAMSULOSIN HCL 0.4 MG CAP.SR.24H ONE (23:13)
[2025-06-01] MEDS ORDERED: HEPARIN SODIUM,PORCINE 5,000 UNITS/ML VIAL ONE (23:13)
[2025-06-01] MEDS: HEPARIN SODIUM,PORCINE 5,000 UNITS/ML VIAL SQ SCH (23:47)
[2025-06-02] VITALS (39 sets, daily range): BP systolic 88–135; BP diastolic 19–91; TEMP 97.7–99.9; O2SAT 98–100
[2025-06-02] MEDS: VANCOMYCIN IV 500 MG in IV DEXTROSE 5% 100 ML IV ONE (00:04)
[2025-06-02] MEDS ORDERED: TEMAZEPAM 7.5 MG CAPSULE ONE ×2 (01:20→23:15)
[2025-06-02 04:50] LABS: PLATELET COUNT (AUTO) 183 K/uL (152-348); RED BLOOD CELL COUNT(AUTO) 2.66 MIL/uL (4.06-5.63); RED CELL DISTRIBUTION WIDTH 16.8 % (12.1-16.2); WHITE BLOOD COUNT (AUTO) 8.0 K/uL (3.6-10.2)
[2025-06-02] MEDS ORDERED: HEPARIN SODIUM,PORCINE 5,000 UNITS/ML VIAL ONE ×2 (05:24→21:09)
[2025-06-02] MEDS ORDERED: ACETAMINOPHEN 325 MG TABLET ONE (05:24)
[2025-06-02 05:29] LABS: CREATININE 2.9 mg/dL (0.6-1.3); SODIUM SERUM 133 mmol/L (136-145); UREA NITROGEN, BLOOD 50 mg/dL (7-18)
[2025-06-02 06:16] LABS: FIBRINOGEN ACTIVITY 378.0 mg/dL (210-360)
[2025-06-02 08:12] LABS: ABG BASE EXCESS 2.4 mmol/L (-2.0-3.0); ABG HCO3 26.5 mmol/L (21.0-28.0); ABG PCO2 38.5 mmHg (35.0-48.0); ABG PH 7.455 (7.350-7.450); ABG PO2 96.0 mmHg (83.0-108.0); ABG SITE LEFT RADIAL; ABG TOTAL HEMOGLOBIN 8.4 G/dL (13.5-17.5); AaDO2 97.6 mmHg; FIO2 30.0 %; PEEP,BG 0.0 cmH20; SET RATE, BG 10.0; VT, ABG 350 mL
[2025-06-02] MEDS ORDERED: AMIODARONE HCL 200 MG TABLET ONE (08:43)
[2025-06-02] MEDS ORDERED: PANTOPRAZOLE SODIUM 40 MG VIAL ONE ×2 (08:43→20:16)
[2025-06-02] MEDS ORDERED: DOCUSATE SODIUM 100 MG/10 ML LIQUID UDC ONE (08:46)
[2025-06-02] MEDS ORDERED: MIDODRINE HCL 5 MG TABLET ONE ×2 (08:50→20:16)
[2025-06-02] MEDS ORDERED: ALPRAZOLAM 0.25 MG TABLET ONE (11:31)
[2025-06-02] MEDS ORDERED: HYDROCODONE/APAP 5-325MG TABLET ONE (11:32)
[2025-06-02] MEDS ORDERED: IOHEXOL 350 100 ML INFUS..BTL ONE (15:01)
[2025-06-02] MEDS ORDERED: IV NORMAL SALINE 250 ML IV ONE (15:01)
[2025-06-02] MEDS ORDERED: SWABABLE VALVE TRANSFER SET EA MC ONE (15:01)
[2025-06-02] MEDS ORDERED: GABAPENTIN 100 MG CAPSULE ONE (20:15)
[2025-06-02] MEDS ORDERED: TAMSULOSIN HCL 0.4 MG CAP.SR.24H ONE (20:16)
[2025-06-02] MEDS ORDERED: MELATONIN 3 MG TABLET ONE (20:16)
[2025-06-03] VITALS (62 sets, daily range): BP systolic 62–153; BP diastolic 20–97; TEMP 97.5–98.4; O2SAT 90–100
[2025-06-03 05:01] LABS: PLATELET COUNT (AUTO) 225 K/uL (152-348); RED BLOOD CELL COUNT(AUTO) 2.81 MIL/uL (4.06-5.63); RED CELL DISTRIBUTION WIDTH 16.8 % (12.1-16.2); WHITE BLOOD COUNT (AUTO) 8.6 K/uL (3.6-10.2)
[2025-06-03] MEDS ORDERED: HEPARIN SODIUM,PORCINE 5,000 UNITS/ML VIAL ONE ×3 (05:04→21:54)
[2025-06-03 05:09] LABS: CREATININE 2.6 mg/dL (0.6-1.3); SODIUM SERUM 132 mmol/L (136-145); UREA NITROGEN, BLOOD 45 mg/dL (7-18)
[2025-06-03] MEDS: MEROPENEM 500 MG in IV NORMAL SALINE 50 ML IV SCH (08:32)
[2025-06-03] MEDS ORDERED: AMIODARONE HCL 200 MG TABLET ONE (08:57)
[2025-06-03] MEDS ORDERED: PANTOPRAZOLE SODIUM 40 MG VIAL ONE ×2 (08:57→20:19)
[2025-06-03] MEDS ORDERED: MIDODRINE HCL 5 MG TABLET ONE ×2 (08:57→17:36)
[2025-06-03] MEDS ORDERED: DOCUSATE SODIUM 100 MG/10 ML LIQUID UDC ONE (08:57)
[2025-06-03] MEDS: VANCOMYCIN IV 500 MG in IV DEXTROSE 5% 100 ML IV ONE (10:44)
[2025-06-03] MEDS ORDERED: NOREPINEPHRINE 8MG/NS 250ML 250 ML IV ONE (11:13)
[2025-06-03] MEDS ORDERED: HYDROCODONE/APAP 5-325MG TABLET ONE (13:05)
[2025-06-03] MEDS ORDERED: HALOPERIDOL DECANOATE 50 MG/1 ML AMPUL IM ONE (14:15)
[2025-06-03] MEDS ORDERED: HALOPERIDOL LACTATE 5 MG/1 ML VIAL ONE (14:18)
[2025-06-03] MEDS: HALOPERIDOL LACTATE 5 MG/1 ML VIAL IM ONE (14:22)
[2025-06-03] MEDS: MIDODRINE HCL 5 MG TABLET PO SCH (17:37)
[2025-06-03] MEDS ORDERED: MELATONIN 3 MG TABLET ONE (20:19)
[2025-06-03] MEDS ORDERED: GABAPENTIN 100 MG CAPSULE ONE (20:19)
[2025-06-03] MEDS ORDERED: TAMSULOSIN HCL 0.4 MG CAP.SR.24H ONE (20:19)
[2025-06-03] MEDS ORDERED: TEMAZEPAM 7.5 MG CAPSULE ONE (22:53)
[2025-06-03] MEDS ORDERED: MEROPENEM 1 G in IV NORMAL SALINE 100 ML IV SCH (23:00)
[2025-06-04] VITALS (62 sets, daily range): BP systolic 90–141; BP diastolic 24–98; TEMP 98–98.8; O2SAT 91–100
[2025-06-04] MEDS ORDERED: ALPRAZOLAM 0.25 MG TABLET ONE ×2 (01:29→11:11)
[2025-06-04 05:05] LABS: PLATELET COUNT (AUTO) 329 K/uL (152-348); RED BLOOD CELL COUNT(AUTO) 2.81 MIL/uL (4.06-5.63); RED CELL DISTRIBUTION WIDTH 17.1 % (12.1-16.2); WHITE BLOOD COUNT (AUTO) 12.2 K/uL (3.6-10.2)
[2025-06-04] MEDS ORDERED: HEPARIN SODIUM,PORCINE 5,000 UNITS/ML VIAL ONE ×3 (05:11→21:34)
[2025-06-04 05:28] LABS: CREATININE 3.7 mg/dL (0.6-1.3); SODIUM SERUM 130 mmol/L (136-145); UREA NITROGEN, BLOOD 71 mg/dL (7-18)
[2025-06-04] MEDS ORDERED: MIDODRINE HCL 5 MG TABLET ONE ×3 (08:13→17:10)
[2025-06-04] MEDS ORDERED: PANTOPRAZOLE SODIUM 40 MG VIAL ONE ×2 (08:13→21:34)
[2025-06-04] MEDS ORDERED: DOCUSATE SODIUM 100 MG/10 ML LIQUID UDC ONE (08:14)
[2025-06-04] MEDS ORDERED: AMIODARONE HCL 200 MG TABLET ONE (08:14)
[2025-06-04] MEDS: BLOOD SUGAR DIAGNOSTIC 1 EACH STRIP VI SCH (11:55)
[2025-06-04] MEDS ORDERED: BLOOD SUGAR DIAGNOSTIC 1 EACH STRIP VI SCH (12:00)
[2025-06-04] MEDS: INSULIN REGULAR, HUMAN 1000 UNIT/10 ML VIAL SQ PRN (12:11)
[2025-06-04] MEDS ORDERED: HYDROCODONE/APAP 5-325MG TABLET ONE (15:25)
[2025-06-04] MEDS ORDERED: QUETIAPINE FUMARATE 25 MG TABLET ONE (21:34)
[2025-06-04] MEDS ORDERED: MELATONIN 3 MG TABLET ONE (21:34)
[2025-06-04] MEDS ORDERED: GABAPENTIN 100 MG CAPSULE ONE (21:34)
[2025-06-04] MEDS ORDERED: TAMSULOSIN HCL 0.4 MG CAP.SR.24H ONE (21:34)
[2025-06-04] MEDS: QUETIAPINE FUMARATE 25 MG TABLET GT SCH (21:35)
[2025-06-04] MEDS: INSULIN GLARGINE,HUM 300 UNITS/3 ML CARTRIDGE SQ SCH (21:46)
[2025-06-05] VITALS (32 sets, daily range): BP systolic 93–155; BP diastolic 25–97; TEMP 98.5–98.9; O2SAT 96–100
[2025-06-05] MEDS ORDERED: HYDROCODONE/APAP 5-325MG TABLET ONE (02:28)
[2025-06-05 05:14] LABS: PLATELET COUNT (AUTO) 328 K/uL (152-348); RED BLOOD CELL COUNT(AUTO) 2.63 MIL/uL (4.06-5.63); RED CELL DISTRIBUTION WIDTH 18.0 % (12.1-16.2); WHITE BLOOD COUNT (AUTO) 10.6 K/uL (3.6-10.2)
[2025-06-05 05:29] LABS: CREATININE 3.1 mg/dL (0.6-1.3); SODIUM SERUM 134 mmol/L (136-145); UREA NITROGEN, BLOOD 49 mg/dL (7-18)
[2025-06-05] MEDS ORDERED: HEPARIN SODIUM,PORCINE 5,000 UNITS/ML VIAL ONE ×2 (06:09→14:21)
[2025-06-05 06:41] LABS: ABG BASE EXCESS 4.5 mmol/L (-2.0-3.0); ABG HCO3 29.1 mmol/L (21.0-28.0); ABG PCO2 43.9 mmHg (35.0-48.0); ABG PH 7.440 (7.350-7.450); ABG PO2 75.6 mmHg (83.0-108.0); ABG SITE RIGHT RADIAL; ABG TOTAL HEMOGLOBIN 8.4 G/dL (13.5-17.5); AaDO2 95.5 mmHg; FIO2 28.0 %; PEEP,BG 0.0 cmH20; SET RATE, BG 10.0; VT, ABG 350 mL
[2025-06-05] MEDS ORDERED: MIDODRINE HCL 5 MG TABLET ONE ×3 (07:50→11:32)
[2025-06-05] MEDS ORDERED: AMIODARONE HCL 200 MG TABLET ONE (07:50)
[2025-06-05] MEDS ORDERED: DOCUSATE SODIUM 100 MG/10 ML LIQUID UDC ONE (08:13)
[2025-06-05] MEDS ORDERED: QUETIAPINE FUMARATE 25 MG TABLET ONE ×2 (08:14→14:21)
[2025-06-05] MEDS ORDERED: PANTOPRAZOLE SODIUM 40 MG VIAL ONE (08:14)
[2025-06-05] MEDS ORDERED: FLUDROCORTISONE ACETATE 0.1 MG TABLET ONE (08:14)
[2025-06-05] MEDS: FLUDROCORTISONE ACETATE 0.1 MG TABLET GT SCH (08:15)
[2025-06-05] MEDS ORDERED: ALPRAZOLAM 0.25 MG TABLET ONE (10:52)
[2025-06-05] MEDS: QUETIAPINE FUMARATE 25 MG TABLET GT PRN (14:26)
[2025-06-05] MEDS: SODIUM PHOSPHATE MM 15 MMOL in IV NORMAL SALINE 250 ML IV ONE (16:40)
[2025-06-06] VITALS (20 sets, daily range): BP systolic 101–166; BP diastolic 37–88; TEMP 97.7–98.8; O2SAT 94–100
[2025-06-06 05:27] LABS: PLATELET COUNT (AUTO) 317 K/uL (152-348); RED CELL DISTRIBUTION WIDTH 17.2 % (12.1-16.2); WHITE BLOOD COUNT (AUTO) 8.6 K/uL (3.6-10.2)
[2025-06-06 05:29] LABS: RED BLOOD CELL COUNT(AUTO) 2.42 MIL/uL (4.06-5.63)
[2025-06-06 05:31] LABS: CREATININE 4.2 mg/dL (0.6-1.3); SODIUM SERUM 134 mmol/L (136-145); UREA NITROGEN, BLOOD 68 mg/dL (7-18)
[2025-06-06 10:32] LABS: ABG BASE EXCESS 2.5 mmol/L (-2.0-3.0); ABG HCO3 28.3 mmol/L (21.0-28.0); ABG PCO2 50.7 mmHg (35.0-48.0); ABG PH 7.365 (7.350-7.450); ABG PO2 74.9 mmHg (83.0-108.0); ABG SITE LEFT RADIAL; ABG TOTAL HEMOGLOBIN 7.9 G/dL (13.5-17.5); AaDO2 94.4 mmHg; FIO2 28.0 %; FLOW, BLOOD GAS 5.00 L/min (0.00-30.00)
[2025-06-06] MEDS: QUETIAPINE FUMARATE 25 MG TABLET GT SCH (13:33)
[2025-06-06] MEDS: MIDODRINE HCL 5 MG TABLET PO SCH (16:38)
[2025-06-06] MEDS: INSULIN GLARGINE,HUM 300 UNITS/3 ML CARTRIDGE SQ SCH (21:11)
[2025-06-07] VITALS (8 sets, daily range): BP systolic 141–185; BP diastolic 52–69; TEMP 98–99.5; O2SAT 96–99
[2025-06-07 06:40] LABS: PLATELET COUNT (AUTO) 374 K/uL (152-348); RED BLOOD CELL COUNT(AUTO) 2.61 MIL/uL (4.06-5.63); RED CELL DISTRIBUTION WIDTH 18.2 % (12.1-16.2); WHITE BLOOD COUNT (AUTO) 8.5 K/uL (3.6-10.2)
[2025-06-07 06:54] LABS: CREATININE 3.1 mg/dL (0.6-1.3); SODIUM SERUM 135 mmol/L (136-145); UREA NITROGEN, BLOOD 45 mg/dL (7-18)
[2025-06-07 07:22] LABS: FIBRINOGEN ACTIVITY 361.0 mg/dL (210-360)
[2025-06-07 10:14] LABS: ABG BASE EXCESS 5.3 mmol/L (-2.0-3.0); ABG HCO3 30.1 mmol/L (21.0-28.0); ABG PCO2 46.0 mmHg (35.0-48.0); ABG PH 7.434 (7.350-7.450); ABG PO2 79.2 mmHg (83.0-108.0); ABG SITE LEFT RADIAL; ABG TOTAL HEMOGLOBIN 8.4 G/dL (13.5-17.5); AaDO2 96.0 mmHg; FIO2 28.0 %; FLOW, BLOOD GAS 5.00 L/min (0.00-30.00)
[2025-06-08 03:50] VITALS: BP 144/48; TEMP 97.9; O2SAT 99
[2025-06-08 07:25] LABS: PLATELET COUNT (AUTO) 443 K/uL (152-348); RED BLOOD CELL COUNT(AUTO) 2.64 MIL/uL (4.06-5.63); RED CELL DISTRIBUTION WIDTH 18.6 % (12.1-16.2); WHITE BLOOD COUNT (AUTO) 11.3 K/uL (3.6-10.2)
[2025-06-08 07:33] VITALS: BP 126/38; TEMP 97.4; O2SAT 99
[2025-06-08 07:39] LABS: CREATININE 4.1 mg/dL (0.6-1.3); SODIUM SERUM 133 mmol/L (136-145); UREA NITROGEN, BLOOD 68 mg/dL (7-18)
[2025-06-08] MEDS: MIDODRINE HCL 5 MG TABLET PO SCH (08:00)
[2025-06-08 10:27] VITALS: BP 185/52; TEMP 98.2; O2SAT 98
[2025-06-08 15:29] VITALS: BP 127/52; TEMP 98; O2SAT 96
[2025-06-08 20:52] VITALS: BP 144/64; TEMP 97.8; O2SAT 96
[2025-06-09] VITALS (12 sets, daily range): BP systolic 126–151; BP diastolic 42–62; TEMP 97.4–98.9; O2SAT 94–99
[2025-06-09 07:20] LABS: PLATELET COUNT (AUTO) 470 K/uL (152-348); RED BLOOD CELL COUNT(AUTO) 2.68 MIL/uL (4.06-5.63); RED CELL DISTRIBUTION WIDTH 21.9 % (12.1-16.2); WHITE BLOOD COUNT (AUTO) 11.1 K/uL (3.6-10.2)
[2025-06-09 07:38] LABS: CREATININE 3.2 mg/dL (0.6-1.3); SODIUM SERUM 130 mmol/L (136-145); UREA NITROGEN, BLOOD 50 mg/dL (7-18)
[2025-06-09 11:30] LABS: *OCCULT BLOOD STOOL NEGATIVE (NEGATIVE)
[2025-06-09 11:46] LABS: ABG BASE EXCESS 6.9 mmol/L (-2.0-3.0); ABG HCO3 31.8 mmol/L (21.0-28.0); ABG PCO2 47.5 mmHg (35.0-48.0); ABG PH 7.443 (7.350-7.450); ABG PO2 102.6 mmHg (83.0-108.0); ABG SITE LEFT RADIAL; ABG TOTAL HEMOGLOBIN 8.7 G/dL (13.5-17.5); AaDO2 97.8 mmHg; FIO2 28.0 %; FLOW, BLOOD GAS 5.00 L/min (0.00-30.00)
[2025-06-09] MEDS: NEPRO 1000 ML GT PRN (21:58)
[2025-06-10] VITALS (11 sets, daily range): BP systolic 134–154; BP diastolic 29–65; TEMP 97.7–98.1; O2SAT 95–99
[2025-06-10 07:01] LABS: PLATELET COUNT (AUTO) 547 K/uL (152-348); RED BLOOD CELL COUNT(AUTO) 2.90 MIL/uL (4.06-5.63); RED CELL DISTRIBUTION WIDTH 21.5 % (12.1-16.2); WHITE BLOOD COUNT (AUTO) 10.2 K/uL (3.6-10.2)
[2025-06-10 07:25] LABS: CREATININE 4.3 mg/dL (0.6-1.3); SODIUM SERUM 130 mmol/L (136-145)
[2025-06-10 07:34] LABS: UREA NITROGEN, BLOOD 83 mg/dL (7-18)
[2025-06-10 07:40] LABS: IRON, SERUM 32 ug/dL (50-175)
[2025-06-10 07:56] LABS: FIBRINOGEN ACTIVITY 304.0 mg/dL (210-360)
[2025-06-10] MEDS ORDERED: LIDOCAINE HCL 1% 20 ML VIAL IJ PRN (16:45)
[2025-06-10] MEDS: LORAZEPAM 1 MG TABLET PO ONE (17:36)
[2025-06-10] MEDS: MORPHINE SULFATE 2 MG/1 ML DISP.SYRIN IV ONE (17:37)
[2025-06-11] VITALS (16 sets, daily range): BP systolic 101–153; BP diastolic 36–82; TEMP 97.6–98.1; O2SAT 94–100
[2025-06-11 00:06] LABS: HEPATITIS B CORE AB, TOTAL Negative (Negative); HEPATITIS B SURFACE AB, QUAL Non Reactive (.); HEPATITIS B SURFACE AG Negative (Negative)
[2025-06-11 06:45] LABS: PLATELET COUNT (AUTO) 532 K/uL (152-348); RED BLOOD CELL COUNT(AUTO) 2.85 MIL/uL (4.06-5.63); RED CELL DISTRIBUTION WIDTH 22.7 % (12.1-16.2); WHITE BLOOD COUNT (AUTO) 9.2 K/uL (3.6-10.2)
[2025-06-11 08:00] LABS: CREATININE 5.3 mg/dL (0.6-1.3); SODIUM SERUM 128 mmol/L (136-145)
[2025-06-11 08:40] LABS: UREA NITROGEN, BLOOD 97 mg/dL (7-18)
[2025-06-11 10:07] LABS: HEPATITIS B CORE AB, IgM Negative (Negative)
[2025-06-11] MEDS ORDERED: NEPRO 1000 ML GT PRN (11:15)
[2025-06-11] MEDS: NEPRO 1000 ML GT PRN (15:45)
[2025-06-12] VITALS (12 sets, daily range): BP systolic 103–162; BP diastolic 42–57; TEMP 97.5–98.8; O2SAT 94–100
[2025-06-12 07:25] LABS: PLATELET COUNT (AUTO) 461 K/uL (152-348); RED BLOOD CELL COUNT(AUTO) 2.60 MIL/uL (4.06-5.63); RED CELL DISTRIBUTION WIDTH 23.0 % (12.1-16.2); WHITE BLOOD COUNT (AUTO) 6.8 K/uL (3.6-10.2)
[2025-06-12 07:46] LABS: CREATININE 3.8 mg/dL (0.6-1.3); SODIUM SERUM 133 mmol/L (136-145); UREA NITROGEN, BLOOD 62 mg/dL (7-18)
[2025-06-12] MEDS: POTASSIUM CHLORIDE 20 MEQ POWDER PACKET GT ONE (11:06)
[2025-06-12] MEDS: DEXTROSE 50% 50 ML DISP.SYRIN IV PRN (11:13)
[2025-06-13] VITALS (13 sets, daily range): BP systolic 132–164; BP diastolic 46–83; TEMP 97.6–98.3; O2SAT 95–100
[2025-06-13 16:49] LABS: PLATELET COUNT (AUTO) 443 K/uL (152-348); RED BLOOD CELL COUNT(AUTO) 2.60 MIL/uL (4.06-5.63); RED CELL DISTRIBUTION WIDTH 23.0 % (12.1-16.2); WHITE BLOOD COUNT (AUTO) 5.6 K/uL (3.6-10.2)
[2025-06-13 19:13] LABS: CREATININE 5.3 mg/dL (0.6-1.3); SODIUM SERUM 130 mmol/L (136-145)
[2025-06-13 19:15] LABS: UREA NITROGEN, BLOOD 99 mg/dL (7-18)
[2025-06-13 19:19] LABS: ASPARTATE AMINOTRANSFERASE 33 U/L (15-37); TOTAL PROTEIN, SERUM 6.0 g/dL (6.4-8.2)
[2025-06-14] VITALS (14 sets, daily range): BP systolic 103–165; BP diastolic 38–88; TEMP 98.4–99.5; O2SAT 94–100
[2025-06-14 07:53] LABS: PLATELET COUNT (AUTO) 471 K/uL (152-348); RED BLOOD CELL COUNT(AUTO) 2.66 MIL/uL (4.06-5.63); RED CELL DISTRIBUTION WIDTH 22.6 % (12.1-16.2); WHITE BLOOD COUNT (AUTO) 5.1 K/uL (3.6-10.2)
[2025-06-14 14:46] LABS: FIBRINOGEN ACTIVITY 351.0 mg/dL (210-360)
[2025-06-15] VITALS (11 sets, daily range): BP systolic 133–152; BP diastolic 39–53; TEMP 98–98.7; O2SAT 95–100
[2025-06-16] VITALS (13 sets, daily range): BP systolic 123–155; BP diastolic 28–58; TEMP 97.4–98.3; O2SAT 96–100
[2025-06-16] MEDS: PIPERACILLIN/TAZO 2.25 G in IV DEXTROSE 5% 50 ML IV SCH (10:11)
[2025-06-17] VITALS (16 sets, daily range): BP systolic 127–163; BP diastolic 51–66; TEMP 96.9–98; O2SAT 96–100
[2025-06-17 07:03] LABS: PLATELET COUNT (AUTO) 388 K/uL (152-348); RED BLOOD CELL COUNT(AUTO) 2.91 MIL/uL (4.06-5.63); RED CELL DISTRIBUTION WIDTH 20.7 % (12.1-16.2); WHITE BLOOD COUNT (AUTO) 5.6 K/uL (3.6-10.2)
[2025-06-17 07:26] LABS: CREATININE 4.3 mg/dL (0.6-1.3); SODIUM SERUM 128 mmol/L (136-145)
[2025-06-17 07:30] LABS: UREA NITROGEN, BLOOD 94 mg/dL (7-18)
[2025-06-17] MEDS: ALBUTEROL SULFATE 1.25 MG/3 ML NEBU NEB SCH (14:15)
[2025-06-17] MEDS: LORAZEPAM 2 MG/1 ML VIAL IV ONE (19:09)
[2025-06-18] VITALS (15 sets, daily range): BP systolic 118–159; BP diastolic 46–69; TEMP 97.6–98.9; O2SAT 96–100
[2025-06-18 06:42] LABS: PLATELET COUNT (AUTO) 429 K/uL (152-348); RED BLOOD CELL COUNT(AUTO) 3.11 MIL/uL (4.06-5.63); RED CELL DISTRIBUTION WIDTH 20.6 % (12.1-16.2); WHITE BLOOD COUNT (AUTO) 7.4 K/uL (3.6-10.2)
[2025-06-18 06:53] LABS: CREATININE 3.8 mg/dL (0.6-1.3); SODIUM SERUM 132 mmol/L (136-145); UREA NITROGEN, BLOOD 69 mg/dL (7-18)
[2025-06-18] MEDS: POTASSIUM CHLORIDE 20 MEQ POWDER PACKET GT ONE (11:16)
[2025-06-18] MEDS: QUETIAPINE FUMARATE 25 MG TABLET GT SCH (11:16)
[2025-06-19] VITALS (18 sets, daily range): BP systolic 115–155; BP diastolic 47–65; TEMP 97.6–99.5; O2SAT 97–100
[2025-06-19 06:55] LABS: PLATELET COUNT (AUTO) 323 K/uL (152-348); RED BLOOD CELL COUNT(AUTO) 2.98 MIL/uL (4.06-5.63); RED CELL DISTRIBUTION WIDTH 21.4 % (12.1-16.2); WHITE BLOOD COUNT (AUTO) 7.4 K/uL (3.6-10.2)
[2025-06-19 07:03] LABS: CREATININE 4.6 mg/dL (0.6-1.3); SODIUM SERUM 128 mmol/L (136-145)
[2025-06-19 07:31] LABS: UREA NITROGEN, BLOOD 85 mg/dL (7-18)
[2025-06-19] MEDS: QUETIAPINE FUMARATE 25 MG TABLET GT SCH (17:28)
[2025-06-20] VITALS (15 sets, daily range): BP systolic 97–145; BP diastolic 41–79; TEMP 98.1–99.5; O2SAT 96–100
[2025-06-20 06:41] LABS: PLATELET COUNT (AUTO) 330 K/uL (152-348); RED BLOOD CELL COUNT(AUTO) 2.88 MIL/uL (4.06-5.63); RED CELL DISTRIBUTION WIDTH 20.5 % (12.1-16.2); WHITE BLOOD COUNT (AUTO) 6.2 K/uL (3.6-10.2)
[2025-06-20 06:52] LABS: CREATININE 3.3 mg/dL (0.6-1.3); SODIUM SERUM 130 mmol/L (136-145); UREA NITROGEN, BLOOD 58 mg/dL (7-18)
[2025-06-21] VITALS (16 sets, daily range): BP systolic 119–157; BP diastolic 39–68; TEMP 97.4–99; O2SAT 93–100
[2025-06-22] VITALS (17 sets, daily range): BP systolic 120–138; BP diastolic 57–68; TEMP 97.5–98.6; O2SAT 96–100
[2025-06-22 07:01] LABS: PLATELET COUNT (AUTO) 255 K/uL (152-348); RED BLOOD CELL COUNT(AUTO) 2.81 MIL/uL (4.06-5.63); RED CELL DISTRIBUTION WIDTH 19.8 % (12.1-16.2); WHITE BLOOD COUNT (AUTO) 6.4 K/uL (3.6-10.2)
[2025-06-22] MEDS: INSULIN GLARGINE,HUM 300 UNITS/3 ML CARTRIDGE SQ SCH (22:13)
[2025-06-23] VITALS (17 sets, daily range): BP systolic 110–159; BP diastolic 42–73; TEMP 98.1–99.1; O2SAT 93–100
[2025-06-23 08:09] LABS: CREATININE 4.9 mg/dL (0.6-1.3); SODIUM SERUM 131 mmol/L (136-145); UREA NITROGEN, BLOOD 69 mg/dL (7-18)
[2025-06-24] VITALS (17 sets, daily range): BP systolic 101–143; BP diastolic 42–74; TEMP 98.1–99.6; O2SAT 95–100
[2025-06-24] MEDS ORDERED: CLONAZEPAM 0.5 MG TABLET GT SCH (23:30)
[2025-06-25] VITALS (14 sets, daily range): BP systolic 110–156; BP diastolic 56–70; TEMP 97.6–98.2; O2SAT 92–100
[2025-06-25 07:14] LABS: PLATELET COUNT (AUTO) 220 K/uL (152-348); RED BLOOD CELL COUNT(AUTO) 2.89 MIL/uL (4.06-5.63); RED CELL DISTRIBUTION WIDTH 19.0 % (12.1-16.2); WHITE BLOOD COUNT (AUTO) 9.8 K/uL (3.6-10.2)
[2025-06-25 07:30] LABS: CREATININE 4.4 mg/dL (0.6-1.3); SODIUM SERUM 133 mmol/L (136-145); UREA NITROGEN, BLOOD 63 mg/dL (7-18)
[2025-06-25] MEDS: MELATONIN 3 MG TABLET GT SCH (23:39)
[2025-06-26] VITALS (13 sets, daily range): BP systolic 123–140; BP diastolic 45–96; TEMP 97.6–98.4; O2SAT 96–100
[2025-06-26 07:32] LABS: PLATELET COUNT (AUTO) 222 K/uL (152-348); RED BLOOD CELL COUNT(AUTO) 3.05 MIL/uL (4.06-5.63); RED CELL DISTRIBUTION WIDTH 18.3 % (12.1-16.2); WHITE BLOOD COUNT (AUTO) 8.0 K/uL (3.6-10.2)
[2025-06-26 07:57] LABS: CREATININE 3.3 mg/dL (0.6-1.3); SODIUM SERUM 133 mmol/L (136-145); UREA NITROGEN, BLOOD 46 mg/dL (7-18)
[2025-06-26] MEDS: QUETIAPINE FUMARATE 25 MG TABLET GT SCH (13:34)
[2025-06-26] MEDS: POTASSIUM CHLORIDE 20 MEQ POWDER PACKET GT ONE (13:39)
[2025-06-27] VITALS (16 sets, daily range): BP systolic 120–147; BP diastolic 45–70; TEMP 97.6–98.7; O2SAT 97–100
[2025-06-27 07:27] LABS: PLATELET COUNT (AUTO) 227 K/uL (152-348); RED BLOOD CELL COUNT(AUTO) 3.24 MIL/uL (4.06-5.63); RED CELL DISTRIBUTION WIDTH 18.2 % (12.1-16.2); WHITE BLOOD COUNT (AUTO) 6.2 K/uL (3.6-10.2)
[2025-06-27 07:52] LABS: CREATININE 4.5 mg/dL (0.6-1.3); SODIUM SERUM 134 mmol/L (136-145); UREA NITROGEN, BLOOD 70 mg/dL (7-18)
[2025-06-28] VITALS (20 sets, daily range): BP systolic 130–157; BP diastolic 57–77; TEMP 97.9–98.4; O2SAT 97–100
[2025-06-28 07:36] LABS: PLATELET COUNT (AUTO) 219 K/uL (152-348); RED BLOOD CELL COUNT(AUTO) 3.56 MIL/uL (4.06-5.63); RED CELL DISTRIBUTION WIDTH 17.5 % (12.1-16.2); WHITE BLOOD COUNT (AUTO) 6.4 K/uL (3.6-10.2)
[2025-06-28 07:49] LABS: CREATININE 3.7 mg/dL (0.6-1.3); SODIUM SERUM 131 mmol/L (136-145); UREA NITROGEN, BLOOD 53 mg/dL (7-18)
[2025-06-28] MEDS: POTASSIUM CHLORIDE 20 MEQ POWDER PACKET GT ONE (11:29)
[2025-06-29] VITALS (17 sets, daily range): BP systolic 122–150; BP diastolic 42–87; TEMP 97.1–98.4; O2SAT 98–100
[2025-06-29 07:11] LABS: CREATININE 4.7 mg/dL (0.6-1.3); SODIUM SERUM 127 mmol/L (136-145)
[2025-06-29 07:35] LABS: UREA NITROGEN, BLOOD 83 mg/dL (7-18)
[2025-06-29 07:39] LABS: PLATELET COUNT (AUTO) 243 K/uL (152-348); RED BLOOD CELL COUNT(AUTO) 3.28 MIL/uL (4.06-5.63); RED CELL DISTRIBUTION WIDTH 17.7 % (12.1-16.2); WHITE BLOOD COUNT (AUTO) 7.3 K/uL (3.6-10.2)
[2025-06-30] VITALS (14 sets, daily range): BP systolic 118–152; BP diastolic 16–63; TEMP 97.7–99.2; O2SAT 97–100
[2025-06-30 06:49] LABS: PLATELET COUNT (AUTO) 280 K/uL (152-348); RED BLOOD CELL COUNT(AUTO) 3.35 MIL/uL (4.06-5.63); RED CELL DISTRIBUTION WIDTH 17.6 % (12.1-16.2); WHITE BLOOD COUNT (AUTO) 6.3 K/uL (3.6-10.2)
[2025-06-30 07:05] LABS: CREATININE 3.6 mg/dL (0.6-1.3); SODIUM SERUM 132 mmol/L (136-145); UREA NITROGEN, BLOOD 53 mg/dL (7-18)
[2025-06-30] MEDS: POTASSIUM CHLORIDE 20 MEQ POWDER PACKET GT ONE (16:24)
[2025-07-01] VITALS (13 sets, daily range): BP systolic 136–156; BP diastolic 68–90; TEMP 97.5–98.7; O2SAT 98–100
[2025-07-01 06:55] LABS: PLATELET COUNT (AUTO) 299 K/uL (152-348); RED BLOOD CELL COUNT(AUTO) 3.19 MIL/uL (4.06-5.63); RED CELL DISTRIBUTION WIDTH 17.8 % (12.1-16.2); WHITE BLOOD COUNT (AUTO) 6.6 K/uL (3.6-10.2)
[2025-07-01 07:21] LABS: CREATININE 4.6 mg/dL (0.6-1.3); SODIUM SERUM 131 mmol/L (136-145); UREA NITROGEN, BLOOD 78 mg/dL (7-18)
[2025-07-01] MEDS: LACTULOSE 20 G/30 ML LIQUID UDC GT PRN (13:47)
[2025-07-01] MEDS: EPOETIN ALFA-EPBX 10,000 UNIT/ML VIAL SQ SCH (16:23)
[2025-07-02] VITALS (16 sets, daily range): BP systolic 110–142; BP diastolic 49–68; TEMP 98.1–99.5; O2SAT 96–100
[2025-07-02 07:33] LABS: PLATELET COUNT (AUTO) 363 K/uL (152-348); RED BLOOD CELL COUNT(AUTO) 3.32 MIL/uL (4.06-5.63); RED CELL DISTRIBUTION WIDTH 17.8 % (12.1-16.2); WHITE BLOOD COUNT (AUTO) 6.3 K/uL (3.6-10.2)
[2025-07-02 07:42] LABS: CREATININE 3.4 mg/dL (0.6-1.3); SODIUM SERUM 131 mmol/L (136-145); UREA NITROGEN, BLOOD 49 mg/dL (7-18)
[2025-07-03] VITALS (17 sets, daily range): BP systolic 113–138; BP diastolic 52–66; TEMP 97.3–98.8; O2SAT 96–100
[2025-07-03 06:52] LABS: PLATELET COUNT (AUTO) 354 K/uL (152-348); RED BLOOD CELL COUNT(AUTO) 3.51 MIL/uL (4.06-5.63); RED CELL DISTRIBUTION WIDTH 17.5 % (12.1-16.2); WHITE BLOOD COUNT (AUTO) 5.0 K/uL (3.6-10.2)
[2025-07-03 07:08] LABS: CREATININE 4.5 mg/dL (0.6-1.3); SODIUM SERUM 129 mmol/L (136-145); UREA NITROGEN, BLOOD 69 mg/dL (7-18)
[2025-07-03] MEDS: QUETIAPINE FUMARATE 25 MG TABLET GT SCH (13:10)
[2025-07-04] VITALS (16 sets, daily range): BP systolic 100–134; BP diastolic 46–59; TEMP 98.2–98.4; O2SAT 92–99
[2025-07-04 06:39] LABS: PLATELET COUNT (AUTO) 417 K/uL (152-348); RED BLOOD CELL COUNT(AUTO) 3.38 MIL/uL (4.06-5.63); RED CELL DISTRIBUTION WIDTH 17.2 % (12.1-16.2); WHITE BLOOD COUNT (AUTO) 7.9 K/uL (3.6-10.2)
[2025-07-04 06:56] LABS: CREATININE 3.4 mg/dL (0.6-1.3); SODIUM SERUM 132 mmol/L (136-145); UREA NITROGEN, BLOOD 41 mg/dL (7-18)
[2025-07-05] VITALS (14 sets, daily range): BP systolic 91–158; BP diastolic 38–80; TEMP 97.3–102.8; O2SAT 97–100
[2025-07-05] MEDS: PANTOPRAZOLE ORAL SUSPENSION 40 MG SUSPDR.PKT GT SCH (05:43)
[2025-07-05 07:23] LABS: PLATELET COUNT (AUTO) 495 K/uL (152-348); RED BLOOD CELL COUNT(AUTO) 3.70 MIL/uL (4.06-5.63); RED CELL DISTRIBUTION WIDTH 17.2 % (12.1-16.2); WHITE BLOOD COUNT (AUTO) 7.0 K/uL (3.6-10.2)
[2025-07-05 07:33] LABS: CREATININE 4.5 mg/dL (0.6-1.3); SODIUM SERUM 133 mmol/L (136-145); UREA NITROGEN, BLOOD 61 mg/dL (7-18)
[2025-07-05] MEDS: IV NORMAL SALINE 500 ML BAG IV ONE (20:25)
[2025-07-06] VITALS (15 sets, daily range): BP systolic 98–130; BP diastolic 43–50; TEMP 97.7–98.1; O2SAT 96–100
[2025-07-06 06:33] LABS: PLATELET COUNT (AUTO) 471 K/uL (152-348); RED BLOOD CELL COUNT(AUTO) 3.10 MIL/uL (4.06-5.63); RED CELL DISTRIBUTION WIDTH 17.2 % (12.1-16.2); WHITE BLOOD COUNT (AUTO) 23.9 K/uL (3.6-10.2)
[2025-07-06 06:53] LABS: CREATININE 3.5 mg/dL (0.6-1.3); SODIUM SERUM 129 mmol/L (136-145); UREA NITROGEN, BLOOD 47 mg/dL (7-18)
[2025-07-06] MEDS ORDERED: MEROPENEM 1 G in IV NORMAL SALINE 100 ML IV SCH (08:15)
[2025-07-06] MEDS: MEROPENEM 500 MG in IV NORMAL SALINE 50 ML IV SCH (09:11)
[2025-07-06] MEDS ORDERED: CEFTAZIDIME 1 G in IV DEXTROSE 5% 50 ML IV SCH (15:45)
[2025-07-06] MEDS ORDERED: VANCOMYCIN IV 500 MG in IV DEXTROSE 5% 100 ML IV PRN (17:00)
[2025-07-06] MEDS: CEFTAZIDIME 1 G in IV DEXTROSE 5% 50 ML IV SCH (17:23)
[2025-07-06] MEDS: EPOETIN ALFA-EPBX 10,000 UNIT/ML VIAL SQ SCH (17:26)
[2025-07-06] MEDS: VANCOMYCIN IV 1,000 MG in IV DEXTROSE 5% 250 ML IV ONE ×2 (18:28→20:49)
[2025-07-06] MEDS ORDERED: VANCOMYCIN IV 200 ML ONE (19:33)
[2025-07-06] MEDS ORDERED: MEROPENEM 500MG/NS 50ML PB ***ER PYXIS ONLY IV ONE (20:44)
[2025-07-06 20:45] LABS: *BILIRUBIN,URIN NEGATIVE (NEGATIVE); *BLOOD, URINE 2+ (NEGATIVE); *CLARITY,URINE CLOUDY (CLEAR); *COLOR,URINE YELLOW (YELLOW); *KETONES,URINE NEGATIVE (NEGATIVE); *PROTEIN,URINE 3+ (NEGATIVE); *UROBILINOGEN,URINE 0.2 E.U./dl (NORMAL); LEUKOCYTE ESTERASE ,URINE 3+ (NEGATIVE); NITRITE, URINE NEGATIVE (NEGATIVE); UGLUCOSE NEGATIVE (NEGATIVE)
[2025-07-06 21:18] LABS: CALCIUM OXALATE CRYSTALS,UR FEW /HPF (NONE SEEN); SQUAMOUS EPITHELIAL CELL,UR FEW /HPF (NONE SEEN); YEAST,URINE FEW /HPF (NONE SEEN)
[2025-07-06 21:19] LABS: URINE AMORPHOUS URATE MODERATE /HPF
[2025-07-07] VITALS (17 sets, daily range): BP systolic 92–124; BP diastolic 41–61; TEMP 97.5–98.9; O2SAT 97–100
[2025-07-07] MEDS ORDERED: FLEET ENEMA 133 ML BOTTLE RC PRN (01:00)
[2025-07-07 07:21] LABS: PLATELET COUNT (AUTO) 473 K/uL (152-348); RED BLOOD CELL COUNT(AUTO) 3.15 MIL/uL (4.06-5.63); RED CELL DISTRIBUTION WIDTH 16.9 % (12.1-16.2); WHITE BLOOD COUNT (AUTO) 12.3 K/uL (3.6-10.2)
[2025-07-07 07:43] LABS: CREATININE 4.5 mg/dL (0.6-1.3); SODIUM SERUM 130 mmol/L (136-145); UREA NITROGEN, BLOOD 78 mg/dL (7-18)
[2025-07-07] MEDS: VANCOMYCIN HCL 750 MG in IV DEXTROSE 5% 250 ML IV ONE (21:33)
[2025-07-08] VITALS (12 sets, daily range): BP systolic 99–133; BP diastolic 44–66; TEMP 97.3–100.1; O2SAT 95–100
[2025-07-08 07:39] LABS: PLATELET COUNT (AUTO) 458 K/uL (152-348); RED BLOOD CELL COUNT(AUTO) 3.27 MIL/uL (4.06-5.63); RED CELL DISTRIBUTION WIDTH 16.9 % (12.1-16.2); WHITE BLOOD COUNT (AUTO) 3.7 K/uL (3.6-10.2)
[2025-07-08 07:53] LABS: CREATININE 3.4 mg/dL (0.6-1.3); SODIUM SERUM 132 mmol/L (136-145); UREA NITROGEN, BLOOD 48 mg/dL (7-18)
[2025-07-09] VITALS (18 sets, daily range): BP systolic 130–141; BP diastolic 48–61; TEMP 97.8–98.6; O2SAT 96–100
[2025-07-09 06:58] LABS: PLATELET COUNT (AUTO) 240 K/uL (152-348); RED BLOOD CELL COUNT(AUTO) 2.92 MIL/uL (4.06-5.63); RED CELL DISTRIBUTION WIDTH 15.3 % (12.1-16.2); WHITE BLOOD COUNT (AUTO) 6.8 K/uL (3.6-10.2)
[2025-07-09 07:07] LABS: CREATININE 0.6 mg/dL (0.6-1.3); SODIUM SERUM 140 mmol/L (136-145); UREA NITROGEN, BLOOD 4 mg/dL (7-18)
[2025-07-09 09:51] LABS: PLATELET COUNT (AUTO) 422 K/uL (152-348); RED BLOOD CELL COUNT(AUTO) 3.22 MIL/uL (4.06-5.63); RED CELL DISTRIBUTION WIDTH 16.3 % (12.1-16.2); WHITE BLOOD COUNT (AUTO) 17.1 K/uL (3.6-10.2)
[2025-07-09 09:59] LABS: CREATININE 4.6 mg/dL (0.6-1.3); SODIUM SERUM 130 mmol/L (136-145); UREA NITROGEN, BLOOD 73 mg/dL (7-18)
[2025-07-10] VITALS (18 sets, daily range): BP systolic 106–184; BP diastolic 43–94; TEMP 97.8–98.5; O2SAT 96–100
[2025-07-10 06:40] LABS: PLATELET COUNT (AUTO) 463 K/uL (152-348); RED BLOOD CELL COUNT(AUTO) 3.36 MIL/uL (4.06-5.63); RED CELL DISTRIBUTION WIDTH 17.1 % (12.1-16.2); WHITE BLOOD COUNT (AUTO) 12.5 K/uL (3.6-10.2)
[2025-07-10 07:31] LABS: CREATININE 5.3 mg/dL (0.6-1.3); SODIUM SERUM 128 mmol/L (136-145)
[2025-07-10 07:45] LABS: UREA NITROGEN, BLOOD 96 mg/dL (7-18)
[2025-07-10 07:52] LABS: IRON, SERUM 22 ug/dL (50-175)
[2025-07-10] MEDS: VANCOMYCIN IV 500 MG in IV DEXTROSE 5% 100 ML IV ONE (22:06)
[2025-07-11] VITALS (27 sets, daily range): BP systolic 101–146; BP diastolic 48–116; TEMP 97.5–98.2; O2SAT 93–100
[2025-07-11 03:08] LABS: HEPATITIS B CORE AB, IgM Negative (Negative); HEPATITIS B CORE AB, TOTAL Negative (Negative); HEPATITIS B SURFACE AB, QUAL Non Reactive (.); HEPATITIS B SURFACE AG Negative (Negative)
[2025-07-11] MEDS: IV NORMAL SALINE 500 ML IV ONE (03:56)
[2025-07-11 07:10] LABS: PLATELET COUNT (AUTO) 385 K/uL (152-348); RED BLOOD CELL COUNT(AUTO) 3.12 MIL/uL (4.06-5.63); RED CELL DISTRIBUTION WIDTH 16.9 % (12.1-16.2); WHITE BLOOD COUNT (AUTO) 18.8 K/uL (3.6-10.2)
[2025-07-11 07:25] LABS: CREATININE 4.0 mg/dL (0.6-1.3); SODIUM SERUM 134 mmol/L (136-145); UREA NITROGEN, BLOOD 62 mg/dL (7-18)
[2025-07-11 09:40] LABS: ASPARTATE AMINOTRANSFERASE 38.0 U/L (15-37); TOTAL PROTEIN, SERUM 7.0 g/dL (6.4-8.2)
[2025-07-11 10:03] LABS: ABG BASE EXCESS 2.5 mmol/L (-2.0-3.0); ABG HCO3 27.3 mmol/L (21.0-28.0); ABG PCO2 43.6 mmHg (35.0-48.0); ABG PH 7.415 (7.350-7.450); ABG PO2 103.4 mmHg (83.0-108.0); ABG SITE RIGHT RADIAL; ABG TOTAL HEMOGLOBIN 9.5 G/dL (13.5-17.5); AaDO2 97.8 mmHg; FIO2 35.0 %; FLOW, BLOOD GAS 8.00 L/min (0.00-30.00)
[2025-07-12] VITALS (41 sets, daily range): BP systolic 85–146; BP diastolic 19–127; TEMP 98–98.5; O2SAT 92–100
[2025-07-12 05:37] LABS: PLATELET COUNT (AUTO) 360 K/uL (152-348); RED BLOOD CELL COUNT(AUTO) 3.47 MIL/uL (4.06-5.63); RED CELL DISTRIBUTION WIDTH 17.2 % (12.1-16.2); WHITE BLOOD COUNT (AUTO) 18.2 K/uL (3.6-10.2)
[2025-07-12 06:02] LABS: CREATININE 4.7 mg/dL (0.6-1.3); SODIUM SERUM 133 mmol/L (136-145)
[2025-07-12 06:04] LABS: UREA NITROGEN, BLOOD 88 mg/dL (7-18)
[2025-07-13] VITALS (40 sets, daily range): BP systolic 82–142; BP diastolic 38–93; TEMP 97.6–98.4; O2SAT 93–100
[2025-07-13 05:39] LABS: PLATELET COUNT (AUTO) 303 K/uL (152-348); RED BLOOD CELL COUNT(AUTO) 3.32 MIL/uL (4.06-5.63); RED CELL DISTRIBUTION WIDTH 17.0 % (12.1-16.2); WHITE BLOOD COUNT (AUTO) 10.4 K/uL (3.6-10.2)
[2025-07-13 05:50] LABS: CREATININE 3.7 mg/dL (0.6-1.3); SODIUM SERUM 139 mmol/L (136-145); UREA NITROGEN, BLOOD 64 mg/dL (7-18)
[2025-07-14] VITALS (14 sets, daily range): BP systolic 110–144; BP diastolic 57–69; TEMP 97.6–98.6; O2SAT 94–100
[2025-07-14] MEDS: VITAMINS A AND D OINT 42 GM TUBE TP PRN (05:23)
[2025-07-14 06:35] LABS: CREATININE 4.4 mg/dL (0.6-1.3); SODIUM SERUM 137 mmol/L (136-145)
[2025-07-14 06:36] LABS: PLATELET COUNT (AUTO) 289 K/uL (152-348); RED BLOOD CELL COUNT(AUTO) 2.97 MIL/uL (4.06-5.63); RED CELL DISTRIBUTION WIDTH 17.2 % (12.1-16.2)
[2025-07-14 06:47] LABS: WHITE BLOOD COUNT (AUTO) 30.6 K/uL (3.6-10.2)
[2025-07-14 06:58] LABS: UREA NITROGEN, BLOOD 96 mg/dL (7-18)
[2025-07-14 08:46] LABS: EOSINOPHILS % (MANUAL) 1 % (0-8); LYMPHOCYTES % (MANUAL) 3 % (20-40); MONOCYTES % (MANUAL) 1 % (2-10); NEUTROPHILS % (MANUAL) 95 % (42-75); PLATELET ESTIMATE ADEQUATE
[2025-07-14] MEDS: NEUTRA PHOS PACKET PO ONE (20:19)
[2025-07-14] MEDS: ALPRAZOLAM 0.25 MG TABLET GT PRN (21:28)
[2025-07-14] MEDS: MIDODRINE HCL 5 MG TABLET PO PRN (23:54)
[2025-07-15] VITALS (15 sets, daily range): BP systolic 88–146; BP diastolic 36–71; TEMP 97.3–99.8; O2SAT 91–99
[2025-07-15 06:44] LABS: PLATELET COUNT (AUTO) 251 K/uL (152-348); RED BLOOD CELL COUNT(AUTO) 2.97 MIL/uL (4.06-5.63); RED CELL DISTRIBUTION WIDTH 16.9 % (12.1-16.2); WHITE BLOOD COUNT (AUTO) 29.9 K/uL (3.6-10.2)
[2025-07-15 06:58] LABS: CREATININE 3.5 mg/dL (0.6-1.3); SODIUM SERUM 135 mmol/L (136-145); UREA NITROGEN, BLOOD 79 mg/dL (7-18)
[2025-07-15] MEDS: NEUTRA PHOS PACKET GT ONE (13:39)
[2025-07-16] VITALS (16 sets, daily range): BP systolic 123–164; BP diastolic 58–118; TEMP 97.3–98.5; O2SAT 94–99
[2025-07-16 07:31] LABS: PLATELET COUNT (AUTO) 263 K/uL (152-348); RED BLOOD CELL COUNT(AUTO) 3.34 MIL/uL (4.06-5.63); RED CELL DISTRIBUTION WIDTH 17.3 % (12.1-16.2); WHITE BLOOD COUNT (AUTO) 15.1 K/uL (3.6-10.2)
[2025-07-16 07:52] LABS: CREATININE 4.5 mg/dL (0.6-1.3); SODIUM SERUM 134 mmol/L (136-145)
[2025-07-16 07:53] LABS: UREA NITROGEN, BLOOD 110 mg/dL (7-18)
[2025-07-17] VITALS (15 sets, daily range): BP systolic 96–148; BP diastolic 45–67; TEMP 97.8–98.6; O2SAT 97–100
[2025-07-17] MEDS: MEROPENEM 500 MG in IV NORMAL SALINE 50 ML IV SCH (21:47)
[2025-07-18] VITALS (12 sets, daily range): BP systolic 104–117; BP diastolic 48–62; TEMP 97.7–98.6; O2SAT 91–100
[2025-07-18 06:42] LABS: PLATELET COUNT (AUTO) 229 K/uL (152-348); RED BLOOD CELL COUNT(AUTO) 2.90 MIL/uL (4.06-5.63); RED CELL DISTRIBUTION WIDTH 17.2 % (12.1-16.2); WHITE BLOOD COUNT (AUTO) 24.4 K/uL (3.6-10.2)
[2025-07-18 07:00] LABS: CREATININE 3.8 mg/dL (0.6-1.3); SODIUM SERUM 135 mmol/L (136-145)
[2025-07-18 07:08] LABS: UREA NITROGEN, BLOOD 88 mg/dL (7-18)
[2025-07-18] MEDS ORDERED: VANCOMYCIN IV 500 MG in IV DEXTROSE 5% 100 ML IV PRN (10:00)
[2025-07-18] MEDS: VANCOMYCIN IV 1,000 MG in IV DEXTROSE 5% 250 ML IV ONE (11:18)
[2025-07-18] MEDS: LIDOCAINE 1%-EPI 1:100,000 20 ML VIAL IJ ONE (17:37)
[2025-07-18] MEDS: MICAFUNGIN SODIUM 50 MG in IV NORMAL SALINE 100 ML IV SCH (19:27)
[2025-07-19] VITALS (17 sets, daily range): BP systolic 93–124; BP diastolic 42–59; TEMP 97.6–100.4; O2SAT 96–100
[2025-07-19 06:55] LABS: PLATELET COUNT (AUTO) 240 K/uL (152-348); RED BLOOD CELL COUNT(AUTO) 2.82 MIL/uL (4.06-5.63); RED CELL DISTRIBUTION WIDTH 17.4 % (12.1-16.2); WHITE BLOOD COUNT (AUTO) 22.3 K/uL (3.6-10.2)
[2025-07-19 07:10] LABS: CREATININE 3.1 mg/dL (0.6-1.3); SODIUM SERUM 135 mmol/L (136-145); UREA NITROGEN, BLOOD 62 mg/dL (7-18)
[2025-07-19 07:52] LABS: FIBRINOGEN ACTIVITY 395.0 mg/dL (210-360)
[2025-07-20] VITALS (14 sets, daily range): BP systolic 116–141; BP diastolic 55–65; TEMP 97.6–98.1; O2SAT 90–100
[2025-07-20 06:53] LABS: PLATELET COUNT (AUTO) 262 K/uL (152-348); RED BLOOD CELL COUNT(AUTO) 3.09 MIL/uL (4.06-5.63); RED CELL DISTRIBUTION WIDTH 17.4 % (12.1-16.2); WHITE BLOOD COUNT (AUTO) 11.1 K/uL (3.6-10.2)
[2025-07-20 07:22] LABS: ASPARTATE AMINOTRANSFERASE 36 U/L (15-37); CREATININE 3.9 mg/dL (0.6-1.3); SODIUM SERUM 136 mmol/L (136-145); TOTAL PROTEIN, SERUM 7.2 g/dL (6.4-8.2)
[2025-07-20 07:23] LABS: UREA NITROGEN, BLOOD 90 mg/dL (7-18)
[2025-07-21] VITALS (14 sets, daily range): BP systolic 140–158; BP diastolic 62–78; TEMP 97.7–98.8; O2SAT 93–100
[2025-07-21 08:06] LABS: PLATELET COUNT (AUTO) 279 K/uL (152-348); RED BLOOD CELL COUNT(AUTO) 3.10 MIL/uL (4.06-5.63); RED CELL DISTRIBUTION WIDTH 17.5 % (12.1-16.2); WHITE BLOOD COUNT (AUTO) 6.2 K/uL (3.6-10.2)
[2025-07-21 08:16] LABS: ASPARTATE AMINOTRANSFERASE 26 U/L (15-37); CREATININE 4.6 mg/dL (0.6-1.3); SODIUM SERUM 136 mmol/L (136-145); TOTAL PROTEIN, SERUM 7.2 g/dL (6.4-8.2)
[2025-07-21 08:28] LABS: UREA NITROGEN, BLOOD 109 mg/dL (7-18)
[2025-07-22] VITALS (14 sets, daily range): BP systolic 108–147; BP diastolic 46–80; TEMP 97.6–97.8; O2SAT 92–100
[2025-07-22 06:36] LABS: PLATELET COUNT (AUTO) 344 K/uL (152-348); RED BLOOD CELL COUNT(AUTO) 3.08 MIL/uL (4.06-5.63); RED CELL DISTRIBUTION WIDTH 17.7 % (12.1-16.2); WHITE BLOOD COUNT (AUTO) 7.0 K/uL (3.6-10.2)
[2025-07-22 06:49] LABS: CREATININE 5.4 mg/dL (0.6-1.3); SODIUM SERUM 134 mmol/L (136-145)
[2025-07-22 07:02] LABS: UREA NITROGEN, BLOOD 124 mg/dL (7-18)
[2025-07-23] VITALS (17 sets, daily range): BP systolic 129–142; BP diastolic 60–87; TEMP 97.9–98.4; O2SAT 94–100
[2025-07-23 06:43] LABS: CREATININE 4.0 mg/dL (0.6-1.3); SODIUM SERUM 138 mmol/L (136-145); UREA NITROGEN, BLOOD 73 mg/dL (7-18)
[2025-07-23 07:15] LABS: PLATELET COUNT (AUTO) 354 K/uL (152-348); RED BLOOD CELL COUNT(AUTO) 2.93 MIL/uL (4.06-5.63); RED CELL DISTRIBUTION WIDTH 17.3 % (12.1-16.2); WHITE BLOOD COUNT (AUTO) 6.5 K/uL (3.6-10.2)
[2025-07-23] MEDS: SILVER NITRATE APPLICATOR STICK EACH TP ONE (11:16)
[2025-07-23] MEDS: LIDOCAINE 2%-EPI 1:100,000 20 ML VIAL IJ ONE (11:16)
[2025-07-24] VITALS (14 sets, daily range): BP systolic 117–139; BP diastolic 52–84; TEMP 97.2–98.1; O2SAT 95–100
[2025-07-24 06:44] LABS: PLATELET COUNT (AUTO) 379 K/uL (152-348); RED BLOOD CELL COUNT(AUTO) 2.97 MIL/uL (4.06-5.63); RED CELL DISTRIBUTION WIDTH 17.8 % (12.1-16.2); WHITE BLOOD COUNT (AUTO) 6.1 K/uL (3.6-10.2)
[2025-07-24 07:01] LABS: CREATININE 3.0 mg/dL (0.6-1.3); SODIUM SERUM 139 mmol/L (136-145); UREA NITROGEN, BLOOD 51 mg/dL (7-18)
[2025-07-24] MEDS ORDERED: ONDANSETRON 4 MG/2 ML VIAL ONE (10:00)
[2025-07-24] MEDS ORDERED: LIDOCAINE-MPF 2% 5 ML VIAL ONE (10:00)
[2025-07-24] MEDS ORDERED: PROPOFOL 200 MG/20 ML BOTTLE ONE (10:00)
[2025-07-25] VITALS (15 sets, daily range): BP systolic 103–143; BP diastolic 44–65; TEMP 97.8–98.6; O2SAT 96–100
[2025-07-25 06:20] LABS: PLATELET COUNT (AUTO) 412 K/uL (152-348); RED BLOOD CELL COUNT(AUTO) 3.16 MIL/uL (4.06-5.63); RED CELL DISTRIBUTION WIDTH 17.7 % (12.1-16.2); WHITE BLOOD COUNT (AUTO) 6.0 K/uL (3.6-10.2)
[2025-07-25 06:30] LABS: CREATININE 4.0 mg/dL (0.6-1.3); SODIUM SERUM 136 mmol/L (136-145); UREA NITROGEN, BLOOD 67 mg/dL (7-18)
[2025-07-26] VITALS (13 sets, daily range): BP systolic 130–144; BP diastolic 66–69; TEMP 97.6–98.2; O2SAT 88–99
[2025-07-26 06:38] LABS: PLATELET COUNT (AUTO) 428 K/uL (152-348); RED BLOOD CELL COUNT(AUTO) 3.16 MIL/uL (4.06-5.63); RED CELL DISTRIBUTION WIDTH 18.5 % (12.1-16.2); WHITE BLOOD COUNT (AUTO) 4.9 K/uL (3.6-10.2)
[2025-07-26 06:51] LABS: CREATININE 2.7 mg/dL (0.6-1.3); SODIUM SERUM 134 mmol/L (136-145); UREA NITROGEN, BLOOD 32 mg/dL (7-18)
[2025-07-26] MEDS: IV D5/ 0.9% NACL 1,000 ML IV PRN (09:00)
[2025-07-26] MEDS ORDERED: Nepro GT (09:09)
[2025-07-26] MEDS ORDERED: QUET25TA36 GT (09:09)
[2025-07-26] MEDS ORDERED: EPOE1000 SQ (09:09)
[2025-07-26] MEDS ORDERED: MIDO5TAB4 PO (09:09)
[2025-07-26] MEDS ORDERED: FERR300L GT (09:09)
[2025-07-26] MEDS ORDERED: FOLI0.8T2 GT (09:09)
[2025-07-26] MEDS ORDERED: NUTR1PAC14 GT (09:09)
[2025-07-26] MEDS ORDERED: PANT40SU2 GT (09:09)
[2025-07-26] MEDS ORDERED: CEFT1PIG6 IV (09:09)
[2025-07-26] MEDS ORDERED: GABA-532 GT (09:09)
[2025-07-26] MEDS ORDERED: AMIO200T6 GT (09:09)
[2025-07-26] MEDS ORDERED: LIDOCAINE HCL 1% 20 ML VIAL ONE (09:19)
[2025-07-26] MEDS ORDERED: HEPARIN/NS 500 ML ONE (09:19)
[2025-07-26] MEDS ORDERED: HEPARIN SODIUM,PORCINE 1,000 UNITS/ML VIAL ONE (09:19)
[2025-07-26] MEDS ORDERED: IOHEXOL 300MG/ML 50 ML VIAL ONE (09:22)
[2025-07-26] MEDS: POTASSIUM CHLORIDE 20 MEQ POWDER PACKET GT ONE (13:18)
[2025-07-27] VITALS (12 sets, daily range): BP systolic 129–141; BP diastolic 64–68; TEMP 97.4–98; O2SAT 94–100
[2025-07-27 06:39] LABS: PLATELET COUNT (AUTO) 436 K/uL (152-348); RED BLOOD CELL COUNT(AUTO) 3.16 MIL/uL (4.06-5.63); RED CELL DISTRIBUTION WIDTH 18.7 % (12.1-16.2); WHITE BLOOD COUNT (AUTO) 6.4 K/uL (3.6-10.2)
[2025-07-27 07:08] LABS: CREATININE 3.6 mg/dL (0.6-1.3); SODIUM SERUM 130 mmol/L (136-145); UREA NITROGEN, BLOOD 46 mg/dL (7-18)
[2025-07-28] VITALS (12 sets, daily range): BP systolic 116–132; BP diastolic 54–67; TEMP 97.8–98.4; O2SAT 95–100
[2025-07-29] VITALS (15 sets, daily range): BP systolic 123–149; BP diastolic 54–72; TEMP 97.5–98; O2SAT 97–100
[2025-07-30] VITALS (14 sets, daily range): BP systolic 124–146; BP diastolic 64–78; TEMP 98–98.6; O2SAT 97–100
[2025-07-30 06:53] LABS: PLATELET COUNT (AUTO) 417 K/uL (152-348); RED BLOOD CELL COUNT(AUTO) 3.02 MIL/uL (4.06-5.63); RED CELL DISTRIBUTION WIDTH 20.7 % (12.1-16.2); WHITE BLOOD COUNT (AUTO) 7.6 K/uL (3.6-10.2)
[2025-07-30 07:14] LABS: CREATININE 2.5 mg/dL (0.6-1.3); SODIUM SERUM 137 mmol/L (136-145); UREA NITROGEN, BLOOD 31 mg/dL (7-18)
[2025-07-30] MEDS: POTASSIUM CHLORIDE 20 MEQ POWDER PACKET GT ONE (10:09)
[2025-07-30] MEDS: CEFTAZIDIME 1 G in IV DEXTROSE 5% 50 ML IV SCH (20:21)
[2025-07-31] VITALS (15 sets, daily range): BP systolic 100–143; BP diastolic 41–65; TEMP 97.7–98.4; O2SAT 93–100
[2025-07-31 06:46] LABS: PLATELET COUNT (AUTO) 397 K/uL (152-348); RED BLOOD CELL COUNT(AUTO) 3.10 MIL/uL (4.06-5.63); RED CELL DISTRIBUTION WIDTH 21.5 % (12.1-16.2); WHITE BLOOD COUNT (AUTO) 7.5 K/uL (3.6-10.2)
[2025-07-31] MEDS ORDERED: MIDAZOLAM HCL 2 MG/2 ML VIAL ONE (06:46)
[2025-07-31] MEDS ORDERED: FENTANYL CITRATE 100 MCG/2 ML AMPUL ONE (06:46)
[2025-07-31 06:54] LABS: CREATININE 3.5 mg/dL (0.6-1.3); SODIUM SERUM 133 mmol/L (136-145); UREA NITROGEN, BLOOD 49 mg/dL (7-18)
[2025-07-31] MEDS ORDERED: LIDOCAINE-MPF 2% 5 ML VIAL ONE (07:00)
[2025-07-31] MEDS ORDERED: PROPOFOL 200 MG/20 ML BOTTLE ONE (07:00)
[2025-07-31] MEDS ORDERED: BUPIVACAINE/EPI PF 0.5% 10 ML VIAL ONE (07:55)
[2025-07-31] MEDS ORDERED: LIDOCAINE HCL 1% 20 ML VIAL ONE (07:56)
[2025-08-01] VITALS (13 sets, daily range): BP systolic 138–150; BP diastolic 59–75; TEMP 97.5–98; O2SAT 96–100
[2025-08-01 06:57] LABS: CREATININE 2.5 mg/dL (0.6-1.3); SODIUM SERUM 138 mmol/L (136-145); UREA NITROGEN, BLOOD 27 mg/dL (7-18)
[2025-08-01 07:09] LABS: PLATELET COUNT (AUTO) 381 K/uL (152-348); RED BLOOD CELL COUNT(AUTO) 3.06 MIL/uL (4.06-5.63); RED CELL DISTRIBUTION WIDTH 22.1 % (12.1-16.2); WHITE BLOOD COUNT (AUTO) 5.7 K/uL (3.6-10.2)
[2025-08-01] MEDS: POTASSIUM CHLORIDE 20 MEQ POWDER PACKET GT ONE (13:59)
[2025-08-02] VITALS (27 sets, daily range): BP systolic 129–175; BP diastolic 55–76; TEMP 97.5–98; O2SAT 95–100
[2025-08-02 06:42] LABS: PLATELET COUNT (AUTO) 370 K/uL (152-348); RED BLOOD CELL COUNT(AUTO) 3.11 MIL/uL (4.06-5.63); RED CELL DISTRIBUTION WIDTH 22.0 % (12.1-16.2); WHITE BLOOD COUNT (AUTO) 5.4 K/uL (3.6-10.2)
[2025-08-02 06:56] LABS: CREATININE 3.6 mg/dL (0.6-1.3); SODIUM SERUM 136 mmol/L (136-145); UREA NITROGEN, BLOOD 41 mg/dL (7-18)
[2025-08-02] MEDS ORDERED: NEOMY/BACITRAC/POLYMI OINT 28.35 GM TUBE TOP SCH (09:00)
[2025-08-02 14:23] LABS: BAND % (MANUAL) 5 % (0-10); BASOPHILS % (MANUAL) 1 % (0-2); EOSINOPHILS % (MANUAL) 3 % (0-8); LYMPHOCYTES % (MANUAL) 14 % (20-40); MONOCYTES % (MANUAL) 17 % (2-10); NEUTROPHILS % (MANUAL) 60 % (42-75); PLATELET ESTIMATE ADEQUATE
[2025-08-03] VITALS (14 sets, daily range): BP systolic 133–151; BP diastolic 71–78; TEMP 97.7–98.3; O2SAT 95–100
[2025-08-03 06:47] LABS: PLATELET COUNT (AUTO) 379 K/uL (152-348); RED BLOOD CELL COUNT(AUTO) 3.19 MIL/uL (4.06-5.63); RED CELL DISTRIBUTION WIDTH 22.2 % (12.1-16.2); WHITE BLOOD COUNT (AUTO) 5.8 K/uL (3.6-10.2)
[2025-08-03 07:02] LABS: CREATININE 2.8 mg/dL (0.6-1.3); SODIUM SERUM 137 mmol/L (136-145); UREA NITROGEN, BLOOD 29 mg/dL (7-18)
[2025-08-04] VITALS (13 sets, daily range): BP systolic 114–127; BP diastolic 34–70; TEMP 97.5–98.6; O2SAT 93–100
[2025-08-04 04:54] LABS: PLATELET COUNT (AUTO) 331 K/uL (152-348); RED BLOOD CELL COUNT(AUTO) 2.98 MIL/uL (4.06-5.63); RED CELL DISTRIBUTION WIDTH 21.6 % (12.1-16.2); WHITE BLOOD COUNT (AUTO) 5.0 K/uL (3.6-10.2)
[2025-08-04 05:11] LABS: CREATININE 4.0 mg/dL (0.6-1.3); SODIUM SERUM 136 mmol/L (136-145); UREA NITROGEN, BLOOD 54 mg/dL (7-18)
[2025-08-04 05:40] LABS: BASOPHILS % (MANUAL) 4 % (0-2); EOSINOPHILS % (MANUAL) 6 % (0-8); LYMPHOCYTES % (MANUAL) 12 % (20-40); MONOCYTES % (MANUAL) 12 % (2-10); NEUTROPHILS % (MANUAL) 66 % (42-75); PLATELET ESTIMATE ADEQUATE
[2025-08-05] VITALS (16 sets, daily range): BP systolic 123–156; BP diastolic 74–78; TEMP 97.6–98.1; O2SAT 97–100
[2025-08-05 06:11] LABS: PLATELET COUNT (AUTO) 334 K/uL (152-348); RED BLOOD CELL COUNT(AUTO) 3.27 MIL/uL (4.06-5.63); RED CELL DISTRIBUTION WIDTH 22.3 % (12.1-16.2); WHITE BLOOD COUNT (AUTO) 5.2 K/uL (3.6-10.2)
[2025-08-05 06:17] LABS: NEUTROPHILS % (MANUAL) 0 % (42-75)
[2025-08-05 06:20] LABS: CREATININE 3.0 mg/dL (0.6-1.3); SODIUM SERUM 137 mmol/L (136-145); UREA NITROGEN, BLOOD 36 mg/dL (7-18)
[2025-08-06] VITALS (11 sets, daily range): BP systolic 116–159; BP diastolic 61–80; TEMP 97.5–98.5; O2SAT 96–100
[2025-08-07] VITALS (13 sets, daily range): BP systolic 120–151; BP diastolic 60–78; TEMP 97.4–98.6; O2SAT 98–100
[2025-08-07 06:36] LABS: PLATELET COUNT (AUTO) 278 K/uL (152-348); RED BLOOD CELL COUNT(AUTO) 3.18 MIL/uL (4.06-5.63); RED CELL DISTRIBUTION WIDTH 21.2 % (12.1-16.2); WHITE BLOOD COUNT (AUTO) 4.8 K/uL (3.6-10.2)
[2025-08-07 06:46] LABS: CREATININE 3.2 mg/dL (0.6-1.3); SODIUM SERUM 137 mmol/L (136-145); UREA NITROGEN, BLOOD 38 mg/dL (7-18)
[2025-08-07 11:21] LABS: BASOPHILS % (MANUAL) 1 % (0-2); LYMPHOCYTES % (MANUAL) 18 % (20-40); MONOCYTES % (MANUAL) 19 % (2-10); NEUTROPHILS % (MANUAL) 60 % (42-75); PLATELET ESTIMATE ADEQUATE
[2025-08-07] MEDS: POTASSIUM CHLORIDE 20 MEQ POWDER PACKET GT ONE (15:04)
[2025-08-08] VITALS (15 sets, daily range): BP systolic 134–155; BP diastolic 60–74; TEMP 97.5–99; O2SAT 98–100
[2025-08-08 06:35] LABS: PLATELET COUNT (AUTO) 257 K/uL (152-348); RED BLOOD CELL COUNT(AUTO) 3.36 MIL/uL (4.06-5.63); RED CELL DISTRIBUTION WIDTH 21.3 % (12.1-16.2); WHITE BLOOD COUNT (AUTO) 4.1 K/uL (3.6-10.2)
[2025-08-08 09:19] LABS: BASOPHILS % (MANUAL) 2 % (0-2); EOSINOPHILS % (MANUAL) 3 % (0-8); LYMPHOCYTES % (MANUAL) 18 % (20-40); MONOCYTES % (MANUAL) 16 % (2-10); NEUTROPHILS % (MANUAL) 61 % (42-75)
[2025-08-08 09:20] LABS: PLATELET ESTIMATE ADEQUATE
[2025-08-09] VITALS (13 sets, daily range): BP systolic 131–144; BP diastolic 55–66; TEMP 97.7–98.5; O2SAT 95–100
[2025-08-09 09:15] LABS: CREATININE 3.5 mg/dL (0.6-1.3); SODIUM SERUM 137 mmol/L (136-145); UREA NITROGEN, BLOOD 36 mg/dL (7-18)
[2025-08-10] VITALS (24 sets, daily range): BP systolic 103–142; BP diastolic 54–76; TEMP 97.6–98.1; O2SAT 98–100
[2025-08-10 07:17] LABS: PLATELET COUNT (AUTO) 257 K/uL (152-348); RED BLOOD CELL COUNT(AUTO) 3.06 MIL/uL (4.06-5.63); RED CELL DISTRIBUTION WIDTH 20.9 % (12.1-16.2); WHITE BLOOD COUNT (AUTO) 4.8 K/uL (3.6-10.2)
[2025-08-11] VITALS (12 sets, daily range): BP systolic 132–153; BP diastolic 65–74; TEMP 97.8–98.2; O2SAT 96–100
[2025-08-11] MEDS ORDERED: LORAZEPAM 2 MG/1 ML VIAL IM ONE (10:00)
[2025-08-12] VITALS (15 sets, daily range): BP systolic 111–139; BP diastolic 53–65; TEMP 97.8–98.7; O2SAT 96–100
[2025-08-12 07:12] LABS: PLATELET COUNT (AUTO) 248 K/uL (152-348); RED BLOOD CELL COUNT(AUTO) 3.09 MIL/uL (4.06-5.63); RED CELL DISTRIBUTION WIDTH 20.5 % (12.1-16.2); WHITE BLOOD COUNT (AUTO) 4.7 K/uL (3.6-10.2)
[2025-08-12 07:20] LABS: CREATININE 4.1 mg/dL (0.6-1.3); SODIUM SERUM 132 mmol/L (136-145); UREA NITROGEN, BLOOD 62 mg/dL (7-18)
[2025-08-13] VITALS (15 sets, daily range): BP systolic 117–144; BP diastolic 52–66; TEMP 97.7–98.3; O2SAT 96–100
[2025-08-14] VITALS (20 sets, daily range): BP systolic 118–146; BP diastolic 60–71; TEMP 97.7–98.6; O2SAT 97–100
[2025-08-14 07:00] LABS: PLATELET COUNT (AUTO) 272 K/uL (152-348); RED BLOOD CELL COUNT(AUTO) 3.19 MIL/uL (4.06-5.63); RED CELL DISTRIBUTION WIDTH 20.2 % (12.1-16.2); WHITE BLOOD COUNT (AUTO) 5.1 K/uL (3.6-10.2)
[2025-08-15] VITALS (16 sets, daily range): BP systolic 117–146; BP diastolic 56–68; TEMP 97.8–98.3; O2SAT 97–100
[2025-08-15 06:47] LABS: PLATELET COUNT (AUTO) 294 K/uL (152-348); RED BLOOD CELL COUNT(AUTO) 3.24 MIL/uL (4.06-5.63); RED CELL DISTRIBUTION WIDTH 20.2 % (12.1-16.2); WHITE BLOOD COUNT (AUTO) 4.9 K/uL (3.6-10.2)
[2025-08-15 07:03] LABS: CREATININE 2.8 mg/dL (0.6-1.3); SODIUM SERUM 138 mmol/L (136-145); UREA NITROGEN, BLOOD 42 mg/dL (7-18)
[2025-08-15] MEDS: POTASSIUM CHLORIDE 20 MEQ POWDER PACKET GT ONE (11:21)
[2025-08-16] VITALS (19 sets, daily range): BP systolic 105–147; BP diastolic 55–75; TEMP 97.7–98; O2SAT 94–100
[2025-08-17] VITALS (17 sets, daily range): BP systolic 123–158; BP diastolic 63–72; TEMP 97.6–97.9; O2SAT 97–100
[2025-08-17 06:51] LABS: PLATELET COUNT (AUTO) 303 K/uL (152-348); RED BLOOD CELL COUNT(AUTO) 3.32 MIL/uL (4.06-5.63); RED CELL DISTRIBUTION WIDTH 20.1 % (12.1-16.2); WHITE BLOOD COUNT (AUTO) 5.8 K/uL (3.6-10.2)
[2025-08-18] VITALS (15 sets, daily range): BP systolic 125–144; BP diastolic 61–68; TEMP 97.6–98.5; O2SAT 96–100
[2025-08-19] VITALS (12 sets, daily range): BP systolic 125–141; BP diastolic 64–75; TEMP 97.7–98; O2SAT 95–100
[2025-08-19 06:41] LABS: PLATELET COUNT (AUTO) 298 K/uL (152-348); RED BLOOD CELL COUNT(AUTO) 3.08 MIL/uL (4.06-5.63); RED CELL DISTRIBUTION WIDTH 19.1 % (12.1-16.2); WHITE BLOOD COUNT (AUTO) 4.8 K/uL (3.6-10.2)
[2025-08-19 06:53] LABS: CREATININE 5.1 mg/dL (0.6-1.3); SODIUM SERUM 135 mmol/L (136-145)
[2025-08-19 07:08] LABS: UREA NITROGEN, BLOOD 95 mg/dL (7-18)
[2025-08-20] VITALS (13 sets, daily range): BP systolic 131–156; BP diastolic 61–97; TEMP 98–98.4; O2SAT 97–100
[2025-08-21] VITALS (14 sets, daily range): BP systolic 113–140; BP diastolic 52–76; TEMP 97.3–98.1; O2SAT 97–100
[2025-08-21 06:35] LABS: PLATELET COUNT (AUTO) 328 K/uL (152-348); RED BLOOD CELL COUNT(AUTO) 3.27 MIL/uL (4.06-5.63); RED CELL DISTRIBUTION WIDTH 19.3 % (12.1-16.2); WHITE BLOOD COUNT (AUTO) 4.5 K/uL (3.6-10.2)
[2025-08-21 07:12] LABS: CREATININE 3.0 mg/dL (0.6-1.3); SODIUM SERUM 139 mmol/L (136-145); UREA NITROGEN, BLOOD 41 mg/dL (7-18)
[2025-08-21 08:55] LABS: EOSINOPHILS % (MANUAL) 2 % (0-8); LYMPHOCYTES % (MANUAL) 17 % (20-40); MONOCYTES % (MANUAL) 16 % (2-10)
[2025-08-21 08:56] LABS: NEUTROPHILS % (MANUAL) 65 % (42-75); PLATELET ESTIMATE ADEQUATE
[2025-08-21 15:10] LABS: *IMMUNOGLOBULIN G, SERUM 2874 mg/dL (603-1613); IMMUNOGLOBULIN A, SERUM 515 mg/dL (61-437); IMMUNOGLOBULIN M, SERUM 106 mg/dL (15-143)
[2025-08-22] VITALS (15 sets, daily range): BP systolic 122–152; BP diastolic 61–74; TEMP 97.7–98.1; O2SAT 94–100
[2025-08-23] VITALS (15 sets, daily range): BP systolic 125–140; BP diastolic 59–64; TEMP 98.1–98.2; O2SAT 96–100
[2025-08-23 07:16] LABS: PLATELET COUNT (AUTO) 319 K/uL (152-348); RED BLOOD CELL COUNT(AUTO) 3.37 MIL/uL (4.06-5.63); RED CELL DISTRIBUTION WIDTH 18.6 % (12.1-16.2); WHITE BLOOD COUNT (AUTO) 5.4 K/uL (3.6-10.2)
[2025-08-23 07:21] LABS: LYMPHOCYTES % (MANUAL) 0 % (20-40); NEUTROPHILS % (MANUAL) 0 % (42-75)
[2025-08-23 07:40] LABS: ASPARTATE AMINOTRANSFERASE 44 U/L (15-37); CREATININE 3.0 mg/dL (0.6-1.3); SODIUM SERUM 136 mmol/L (136-145); TOTAL PROTEIN, SERUM 8.7 g/dL (6.4-8.2); UREA NITROGEN, BLOOD 48 mg/dL (7-18)
[2025-08-24] VITALS (14 sets, daily range): BP systolic 135–155; BP diastolic 66–76; TEMP 97.8–98.1; O2SAT 96–100
[2025-08-25] VITALS (16 sets, daily range): BP systolic 127–139; BP diastolic 55–66; TEMP 97.8–98.3; O2SAT 94–100
[2025-08-25 06:36] LABS: PLATELET COUNT (AUTO) 283 K/uL (152-348); RED BLOOD CELL COUNT(AUTO) 3.31 MIL/uL (4.06-5.63); RED CELL DISTRIBUTION WIDTH 18.4 % (12.1-16.2); WHITE BLOOD COUNT (AUTO) 4.3 K/uL (3.6-10.2)
[2025-08-25 07:25] LABS: LYMPHOCYTES % (MANUAL) 19 % (20-40); MONOCYTES % (MANUAL) 16 % (2-10); NEUTROPHILS % (MANUAL) 62 % (42-75)
[2025-08-25 07:26] LABS: EOSINOPHILS % (MANUAL) 3 % (0-8); PLATELET ESTIMATE ADEQUATE
[2025-08-26] VITALS (12 sets, daily range): BP systolic 138–152; BP diastolic 55–74; TEMP 97.8–98.4; O2SAT 95–100
[2025-08-27] VITALS (15 sets, daily range): BP systolic 129–149; BP diastolic 63–71; TEMP 97.6–98.7; O2SAT 97–100
[2025-08-27 06:57] LABS: PLATELET COUNT (AUTO) 275 K/uL (152-348); RED BLOOD CELL COUNT(AUTO) 3.35 MIL/uL (4.06-5.63); RED CELL DISTRIBUTION WIDTH 18.2 % (12.1-16.2); WHITE BLOOD COUNT (AUTO) 4.9 K/uL (3.6-10.2)
[2025-08-27 07:05] LABS: CREATININE 3.1 mg/dL (0.6-1.3); SODIUM SERUM 136 mmol/L (136-145); UREA NITROGEN, BLOOD 55 mg/dL (7-18)
[2025-08-28] VITALS (16 sets, daily range): BP systolic 142–156; BP diastolic 67–88; TEMP 97.6–98.8; O2SAT 97–100
[2025-08-28 08:49] LABS: PLATELET COUNT (AUTO) 283 K/uL (152-348); RED BLOOD CELL COUNT(AUTO) 3.22 MIL/uL (4.06-5.63); RED CELL DISTRIBUTION WIDTH 17.7 % (12.1-16.2); WHITE BLOOD COUNT (AUTO) 6.9 K/uL (3.6-10.2)
[2025-08-29] VITALS (15 sets, daily range): BP systolic 137–154; BP diastolic 65–80; TEMP 97.8–98.6; O2SAT 97–100
[2025-08-30] VITALS (16 sets, daily range): BP systolic 121–148; BP diastolic 60–76; TEMP 97.5–98.5; O2SAT 97–100
[2025-08-30 07:09] LABS: PLATELET COUNT (AUTO) 293 K/uL (152-348); RED BLOOD CELL COUNT(AUTO) 3.46 MIL/uL (4.06-5.63); RED CELL DISTRIBUTION WIDTH 17.5 % (12.1-16.2); WHITE BLOOD COUNT (AUTO) 5.2 K/uL (3.6-10.2)
[2025-08-31] VITALS (13 sets, daily range): BP systolic 137–155; BP diastolic 67–74; TEMP 97.8–98.4; O2SAT 93–99
[2025-09-01] VITALS (10 sets, daily range): BP systolic 131–168; BP diastolic 70–84; TEMP 97.9–98.9; O2SAT 93–100
[2025-09-01 06:58] LABS: PLATELET COUNT (AUTO) 299 K/uL (152-348); RED BLOOD CELL COUNT(AUTO) 3.52 MIL/uL (4.06-5.63); RED CELL DISTRIBUTION WIDTH 17.2 % (12.1-16.2); WHITE BLOOD COUNT (AUTO) 7.4 K/uL (3.6-10.2)
[2025-09-01 14:00] LABS: CREATININE 4.4 mg/dL (0.6-1.3); SODIUM SERUM 130 mmol/L (136-145); UREA NITROGEN, BLOOD 73 mg/dL (7-18)
[2025-09-02] VITALS (17 sets, daily range): BP systolic 100–153; BP diastolic 51–70; TEMP 98.1–103.4; O2SAT 91–99
[2025-09-02 09:32] LABS: PLATELET COUNT (AUTO) 233 K/uL (152-348); RED BLOOD CELL COUNT(AUTO) 2.78 MIL/uL (4.06-5.63); RED CELL DISTRIBUTION WIDTH 17.3 % (12.1-16.2); WHITE BLOOD COUNT (AUTO) 15.7 K/uL (3.6-10.2)
[2025-09-02 09:50] LABS: CREATININE 3.7 mg/dL (0.6-1.3); SODIUM SERUM 135 mmol/L (136-145); UREA NITROGEN, BLOOD 49 mg/dL (7-18)
[2025-09-02] MEDS: CEFEPIME HCL 2 GM in IV DEXTROSE 5% 100 ML IV SCH (16:44)
[2025-09-02] MEDS: ACETAMINOPHEN 650 MG/20.3 ML LIQUID UDC GT ONE (17:30)
[2025-09-02] MEDS: VANCOMYCIN IV 1,000 MG in IV DEXTROSE 5% 250 ML IV ONE (17:35)
[2025-09-03] VITALS (16 sets, daily range): BP systolic 111–150; BP diastolic 57–80; TEMP 98.1–100.1; O2SAT 91–100
[2025-09-03 06:19] LABS: PLATELET COUNT (AUTO) 211 K/uL (152-348); RED BLOOD CELL COUNT(AUTO) 2.94 MIL/uL (4.06-5.63); RED CELL DISTRIBUTION WIDTH 17.2 % (12.1-16.2); WHITE BLOOD COUNT (AUTO) 15.4 K/uL (3.6-10.2)
[2025-09-03 06:52] LABS: ASPARTATE AMINOTRANSFERASE 22 U/L (15-37); CREATININE 4.6 mg/dL (0.6-1.3); FIBRINOGEN ACTIVITY 423.0 mg/dL (210-360); IRON, SERUM 11 ug/dL (50-175); SODIUM SERUM 128 mmol/L (136-145); TOTAL PROTEIN, SERUM 7.7 g/dL (6.4-8.2); UREA NITROGEN, BLOOD 68 mg/dL (7-18)
[2025-09-03 10:33] LABS: ABG BASE EXCESS 5.6 mmol/L (-2.0-3.0); ABG HCO3 29.1 mmol/L (21.0-28.0); ABG PCO2 37.9 mmHg (35.0-48.0); ABG PH 7.503 (7.350-7.450); ABG PO2 84.4 mmHg (83.0-108.0); ABG SITE RIGHT BRACHIAL; ABG TOTAL HEMOGLOBIN 9.1 G/dL (13.5-17.5); AaDO2 97.1 mmHg; FLOW, BLOOD GAS 5.00 L/min (0.00-30.00)
[2025-09-03 11:11] LABS: FREE KAPPA LT CHAINS SERUM 560.3 mg/L (3.3-19.4); FREE LAMBDA LT CHAIN SERUM 462.9 mg/L (5.7-26.3); KAPPA/LAMBDA RATIO SERUM 1.21 (0.26-1.65)
[2025-09-03] MEDS: GELATIN SPONGE,ABSORBABLE 1 EACH SPONGE TP SCH (14:24)
[2025-09-03] MEDS: VANCOMYCIN IV 500 MG in IV DEXTROSE 5% 100 ML IV ONE (16:26)
[2025-09-03] MEDS: CEFEPIME (MAXEPIME) 1 G in IV DEXTROSE 5% 50 ML IV SCH (22:57)
[2025-09-04] VITALS (15 sets, daily range): BP systolic 121–133; BP diastolic 60–70; TEMP 97.5–98.5; O2SAT 94–100
[2025-09-04 06:47] LABS: PLATELET COUNT (AUTO) 231 K/uL (152-348); RED BLOOD CELL COUNT(AUTO) 2.89 MIL/uL (4.06-5.63); RED CELL DISTRIBUTION WIDTH 16.4 % (12.1-16.2); WHITE BLOOD COUNT (AUTO) 6.9 K/uL (3.6-10.2)
[2025-09-04 06:55] LABS: CREATININE 3.3 mg/dL (0.6-1.3); SODIUM SERUM 136 mmol/L (136-145); UREA NITROGEN, BLOOD 38 mg/dL (7-18)
[2025-09-04 07:43] LABS: FIBRINOGEN ACTIVITY 395.0 mg/dL (210-360)
[2025-09-04] MEDS ORDERED: MEDIHONEY= THERAHONEY 1.5 OZ TUBE TOP SCH (09:00)
[2025-09-04] MEDS: NEPRO 1000 ML GT PRN (10:14)
[2025-09-04] MEDS: POTASSIUM CHLORIDE 20 MEQ POWDER PACKET GT ONE (10:50)
[2025-09-05] VITALS (15 sets, daily range): BP systolic 125–150; BP diastolic 58–70; TEMP 97.5–98.4; O2SAT 95–99
[2025-09-05 07:08] LABS: CREATININE 4.3 mg/dL (0.6-1.3); SODIUM SERUM 133 mmol/L (136-145); UREA NITROGEN, BLOOD 65 mg/dL (7-18)
[2025-09-05 07:09] LABS: FIBRINOGEN ACTIVITY 364.0 mg/dL (210-360)
[2025-09-05 07:33] LABS: PLATELET COUNT (AUTO) 240 K/uL (152-348); RED BLOOD CELL COUNT(AUTO) 2.91 MIL/uL (4.06-5.63); RED CELL DISTRIBUTION WIDTH 16.8 % (12.1-16.2); WHITE BLOOD COUNT (AUTO) 5.1 K/uL (3.6-10.2)
[2025-09-05 08:07] LABS: A/G RATIO 0.6 (0.7-1.7); BETA GLOBULIN 1.0 g/dL (0.7-1.3); GLOBULIN, TOTAL 4.4 g/dL (2.2-3.9); M-SPIKE 0.9 g/dL (Not Observed); PROTEIN, TOTAL 7.2 g/dL (6.0-8.5)
[2025-09-05 09:59] LABS: EOSINOPHILS % (MANUAL) 2 % (0-8); LYMPHOCYTES % (MANUAL) 9 % (20-40); MONOCYTES % (MANUAL) 14 % (2-10); NEUTROPHILS % (MANUAL) 75 % (42-75); PLATELET ESTIMATE ADEQUATE
[2025-09-05] MEDS: VANCOMYCIN IV 500 MG in IV DEXTROSE 5% 100 ML IV ONE (21:36)
[2025-09-06] VITALS (17 sets, daily range): BP systolic 133–152; BP diastolic 63–74; TEMP 97.6–98.4; O2SAT 92–100
[2025-09-06 06:45] LABS: PLATELET COUNT (AUTO) 248 K/uL (152-348); RED BLOOD CELL COUNT(AUTO) 3.10 MIL/uL (4.06-5.63); RED CELL DISTRIBUTION WIDTH 16.6 % (12.1-16.2); WHITE BLOOD COUNT (AUTO) 4.3 K/uL (3.6-10.2)
[2025-09-06 06:53] LABS: CREATININE 2.9 mg/dL (0.6-1.3); SODIUM SERUM 135 mmol/L (136-145); UREA NITROGEN, BLOOD 35 mg/dL (7-18)
[2025-09-06] MEDS: GELATIN SPONGE,ABSORBABLE 1 EACH SPONGE TP SCH (08:53)
[2025-09-06] MEDS: LIDOCAINE 2%-EPI 1:100,000 20 ML VIAL IJ ONE (21:00)
[2025-09-07] VITALS (15 sets, daily range): BP systolic 133–145; BP diastolic 62–70; TEMP 98–99.3; O2SAT 93–99
[2025-09-08] VITALS (15 sets, daily range): BP systolic 126–146; BP diastolic 55–75; TEMP 97.7–98.7; O2SAT 96–100
[2025-09-08 07:50] LABS: ASPARTATE AMINOTRANSFERASE 10 U/L (15-37); CREATININE 5.2 mg/dL (0.6-1.3); SODIUM SERUM 135 mmol/L (136-145); TOTAL PROTEIN, SERUM 7.6 g/dL (6.4-8.2); UREA NITROGEN, BLOOD 69 mg/dL (7-18)
[2025-09-08 07:54] LABS: PLATELET COUNT (AUTO) 285 K/uL (152-348); RED BLOOD CELL COUNT(AUTO) 3.05 MIL/uL (4.06-5.63); RED CELL DISTRIBUTION WIDTH 16.9 % (12.1-16.2); WHITE BLOOD COUNT (AUTO) 6.8 K/uL (3.6-10.2)
[2025-09-08] MEDS: VANCOMYCIN IV 500 MG in IV DEXTROSE 5% 100 ML IV ONE (13:56)
[2025-09-09] VITALS (15 sets, daily range): BP systolic 126–146; BP diastolic 59–71; TEMP 98.1–98.7; O2SAT 90–99
[2025-09-09 06:41] LABS: PLATELET COUNT (AUTO) 300 K/uL (152-348); RED BLOOD CELL COUNT(AUTO) 3.09 MIL/uL (4.06-5.63); RED CELL DISTRIBUTION WIDTH 17.0 % (12.1-16.2); WHITE BLOOD COUNT (AUTO) 6.3 K/uL (3.6-10.2)
[2025-09-09 06:53] LABS: ASPARTATE AMINOTRANSFERASE 12 U/L (15-37); CREATININE 6.2 mg/dL (0.6-1.3); SODIUM SERUM 133 mmol/L (136-145); TOTAL PROTEIN, SERUM 7.8 g/dL (6.4-8.2)
[2025-09-09 07:16] LABS: UREA NITROGEN, BLOOD 92 mg/dL (7-18)
[2025-09-09] MEDS: MEROPENEM 500 MG in IV NORMAL SALINE 50 ML IV SCH (14:41)
[2025-09-10] VITALS (12 sets, daily range): BP systolic 136–156; BP diastolic 56–72; TEMP 97.8–98.1; O2SAT 90–100
[2025-09-10 09:12] LABS: SODIUM SERUM 132 mmol/L (136-145)
[2025-09-10 09:18] LABS: ASPARTATE AMINOTRANSFERASE 11 U/L (15-37); CREATININE 7.2 mg/dL (0.6-1.3); TOTAL PROTEIN, SERUM 8.0 g/dL (6.4-8.2)
[2025-09-10 09:40] LABS: UREA NITROGEN, BLOOD 124 mg/dL (7-18)
[2025-09-10] MEDS: SOD FERRIC GLUC COMPLX/SUCROSE 125 MG in IV NORMAL SALINE 100 ML IV SCH (15:22)
[2025-09-10] MEDS: MEROPENEM 500 MG in IV NORMAL SALINE 50 ML IV SCH (22:27)
[2025-09-11] VITALS (14 sets, daily range): BP systolic 110–154; BP diastolic 29–78; TEMP 97.4–98.7; O2SAT 93–99
[2025-09-11 07:08] LABS: PLATELET COUNT (AUTO) 403 K/uL (152-348); RED BLOOD CELL COUNT(AUTO) 2.96 MIL/uL (4.06-5.63); RED CELL DISTRIBUTION WIDTH 17.0 % (12.1-16.2); WHITE BLOOD COUNT (AUTO) 5.2 K/uL (3.6-10.2)
[2025-09-11 08:07] LABS: *IMMUNOGLOBULIN G, SERUM 2893 mg/dL (603-1613); IMMUNOGLOBULIN A, SERUM 483 mg/dL (61-437); IMMUNOGLOBULIN M, SERUM 126 mg/dL (15-143)
[2025-09-12] VITALS (12 sets, daily range): BP systolic 140–167; BP diastolic 65–77; TEMP 98–99.1; O2SAT 91–99
[2025-09-12 09:03] LABS: PLATELET COUNT (AUTO) 420 K/uL (152-348); RED BLOOD CELL COUNT(AUTO) 3.18 MIL/uL (4.06-5.63); RED CELL DISTRIBUTION WIDTH 16.9 % (12.1-16.2); WHITE BLOOD COUNT (AUTO) 6.7 K/uL (3.6-10.2)
[2025-09-12 09:13] LABS: CREATININE 6.1 mg/dL (0.6-1.3); SODIUM SERUM 134 mmol/L (136-145)
[2025-09-12 09:24] LABS: ASPARTATE AMINOTRANSFERASE 28 U/L (15-37); TOTAL PROTEIN, SERUM 8.6 g/dL (6.4-8.2)
[2025-09-12 09:25] LABS: UREA NITROGEN, BLOOD 96 mg/dL (7-18)
[2025-09-12] MEDS: VANCOMYCIN IV 500 MG in IV DEXTROSE 5% 100 ML IV ONE (15:45)
[2025-09-13] VITALS (15 sets, daily range): BP systolic 135–167; BP diastolic 66–73; TEMP 97.7–98.1; O2SAT 91–100
[2025-09-13 06:07] LABS: A/G RATIO 0.6 (0.7-1.7); BETA GLOBULIN 0.8 g/dL (0.7-1.3); GLOBULIN, TOTAL 4.4 g/dL (2.2-3.9); M-SPIKE Not Observed g/dL (Not Observed); PROTEIN, TOTAL 7.0 g/dL (6.0-8.5)
[2025-09-13 06:43] LABS: PLATELET COUNT (AUTO) 418 K/uL (152-348); RED BLOOD CELL COUNT(AUTO) 3.04 MIL/uL (4.06-5.63); RED CELL DISTRIBUTION WIDTH 16.9 % (12.1-16.2); WHITE BLOOD COUNT (AUTO) 5.6 K/uL (3.6-10.2)
[2025-09-13 06:56] LABS: ASPARTATE AMINOTRANSFERASE 26 U/L (15-37); CREATININE 4.2 mg/dL (0.6-1.3); SODIUM SERUM 133 mmol/L (136-145); TOTAL PROTEIN, SERUM 8.3 g/dL (6.4-8.2); UREA NITROGEN, BLOOD 64 mg/dL (7-18)
[2025-09-13 08:00] LABS: FIBRINOGEN ACTIVITY 425.0 mg/dL (210-360)
[2025-09-14] VITALS (14 sets, daily range): BP systolic 127–164; BP diastolic 60–77; TEMP 97.4–98.6; O2SAT 91–100
[2025-09-14 05:39] LABS: PLATELET COUNT (AUTO) 407 K/uL (152-348); RED BLOOD CELL COUNT(AUTO) 2.75 MIL/uL (4.06-5.63); RED CELL DISTRIBUTION WIDTH 16.8 % (12.1-16.2); WHITE BLOOD COUNT (AUTO) 8.0 K/uL (3.6-10.2)
[2025-09-14 05:55] LABS: ASPARTATE AMINOTRANSFERASE 28 U/L (15-37); CREATININE 5.3 mg/dL (0.6-1.3); SODIUM SERUM 126 mmol/L (136-145); TOTAL PROTEIN, SERUM 7.9 g/dL (6.4-8.2); UREA NITROGEN, BLOOD 78 mg/dL (7-18)
[2025-09-14] MEDS: MUPIROCIN 2% OINT 22 GM TUBE NS SCH (21:13)
[2025-09-15] VITALS (15 sets, daily range): BP systolic 117–143; BP diastolic 60–73; TEMP 98.5–99.9; O2SAT 91–98
[2025-09-15 06:47] LABS: CREATININE 4.1 mg/dL (0.6-1.3); SODIUM SERUM 131 mmol/L (136-145); UREA NITROGEN, BLOOD 69 mg/dL (7-18)
[2025-09-15 06:51] LABS: WHITE BLOOD COUNT (AUTO) 6.3 K/uL (3.6-10.2)
[2025-09-15 06:53] LABS: ASPARTATE AMINOTRANSFERASE 28 U/L (15-37); TOTAL PROTEIN, SERUM 7.3 g/dL (6.4-8.2)
[2025-09-15 06:54] LABS: PLATELET COUNT (AUTO) 390 K/uL (152-348); RED BLOOD CELL COUNT(AUTO) 2.55 MIL/uL (4.06-5.63); RED CELL DISTRIBUTION WIDTH 16.9 % (12.1-16.2)
[2025-09-15] MEDS: EPOETIN ALFA-EPBX 10,000 UNIT/ML VIAL SQ ONE (14:25)
[2025-09-16] VITALS (16 sets, daily range): BP systolic 124–155; BP diastolic 60–72; TEMP 98–99; O2SAT 92–99
[2025-09-16 06:36] LABS: ASPARTATE AMINOTRANSFERASE 26 U/L (15-37); CREATININE 5.1 mg/dL (0.6-1.3); SODIUM SERUM 128 mmol/L (136-145); TOTAL PROTEIN, SERUM 8.2 g/dL (6.4-8.2)
[2025-09-16 06:52] LABS: PLATELET COUNT (AUTO) 442 K/uL (152-348); RED BLOOD CELL COUNT(AUTO) 2.92 MIL/uL (4.06-5.63); RED CELL DISTRIBUTION WIDTH 16.7 % (12.1-16.2); WHITE BLOOD COUNT (AUTO) 7.4 K/uL (3.6-10.2)
[2025-09-16 07:13] LABS: UREA NITROGEN, BLOOD 96 mg/dL (7-18)
[2025-09-16] MEDS: VANCOMYCIN IV 500 MG in IV DEXTROSE 5% 100 ML IV PRN (14:22)
[2025-09-16] MEDS ORDERED: VANCOMYCIN IV 500 MG in IV DEXTROSE 5% 100 ML IV ONE (15:00)
[2025-09-17] VITALS (19 sets, daily range): BP systolic 103–142; BP diastolic 54–68; TEMP 97.5–98.6; O2SAT 28–99
[2025-09-17 06:28] LABS: ASPARTATE AMINOTRANSFERASE 22 U/L (15-37); CREATININE 4.1 mg/dL (0.6-1.3); SODIUM SERUM 135 mmol/L (136-145); TOTAL PROTEIN, SERUM 7.4 g/dL (6.4-8.2); UREA NITROGEN, BLOOD 75 mg/dL (7-18)
[2025-09-17 06:40] LABS: PLATELET COUNT (AUTO) 395 K/uL (152-348); RED CELL DISTRIBUTION WIDTH 16.5 % (12.1-16.2); WHITE BLOOD COUNT (AUTO) 5.5 K/uL (3.6-10.2)
[2025-09-17 06:49] LABS: RED BLOOD CELL COUNT(AUTO) 2.43 MIL/uL (4.06-5.63)
[2025-09-17 13:44] LABS: BAND % (MANUAL) 8 % (0-10); BASOPHILS % (MANUAL) 1 % (0-2); EOSINOPHILS % (MANUAL) 1 % (0-8); LYMPHOCYTES % (MANUAL) 13 % (20-40); MONOCYTES % (MANUAL) 14 % (2-10); NEUTROPHILS % (MANUAL) 63 % (42-75); PLATELET ESTIMATE ADEQUATE
[2025-09-18] VITALS (18 sets, daily range): BP systolic 142–170; BP diastolic 68–79; TEMP 97–98.1; O2SAT 93–99
[2025-09-18 07:20] LABS: PLATELET COUNT (AUTO) 418 K/uL (152-348); RED BLOOD CELL COUNT(AUTO) 3.16 MIL/uL (4.06-5.63); RED CELL DISTRIBUTION WIDTH 16.3 % (12.1-16.2); WHITE BLOOD COUNT (AUTO) 5.8 K/uL (3.6-10.2)
[2025-09-18 07:26] LABS: ASPARTATE AMINOTRANSFERASE 25 U/L (15-37); CREATININE 3.7 mg/dL (0.6-1.3); SODIUM SERUM 137 mmol/L (136-145); TOTAL PROTEIN, SERUM 8.2 g/dL (6.4-8.2); UREA NITROGEN, BLOOD 59 mg/dL (7-18)
[2025-09-18 07:32] LABS: IRON, SERUM 26.0 ug/dL (50-175)
[2025-09-18 07:38] LABS: FIBRINOGEN ACTIVITY 435.0 mg/dL (210-360)
[2025-09-18] MEDS: CLONIDINE HCL 0.1 MG TABLET PO PRN (09:21)
[2025-09-18] MEDS: CLONIDINE HCL 0.1 MG TABLET PO ONE (10:44)
[2025-09-18] MEDS: SOD FERRIC GLUC COMPLX/SUCROSE 125 MG in IV NORMAL SALINE 100 ML IV SCH (14:45)
[2025-09-19] VITALS (16 sets, daily range): BP systolic 133–140; BP diastolic 65–70; TEMP 97.5–98.8; O2SAT 94–99
[2025-09-19] MEDS: VANCOMYCIN IV 500 MG in IV DEXTROSE 5% 100 ML IV SCH (00:12)
[2025-09-19 06:42] LABS: PLATELET COUNT (AUTO) 435 K/uL (152-348); RED BLOOD CELL COUNT(AUTO) 3.09 MIL/uL (4.06-5.63); RED CELL DISTRIBUTION WIDTH 16.5 % (12.1-16.2); WHITE BLOOD COUNT (AUTO) 5.9 K/uL (3.6-10.2)
[2025-09-19 06:56] LABS: ASPARTATE AMINOTRANSFERASE 23 U/L (15-37); CREATININE 3.0 mg/dL (0.6-1.3); SODIUM SERUM 139 mmol/L (136-145); TOTAL PROTEIN, SERUM 8.6 g/dL (6.4-8.2); UREA NITROGEN, BLOOD 50 mg/dL (7-18)
[2025-09-19] MEDS: POTASSIUM CHLORIDE 20 MEQ POWDER PACKET GT ONE (11:23)
[2025-09-20] VITALS (14 sets, daily range): BP systolic 142–154; BP diastolic 63–76; TEMP 97.6–97.8; O2SAT 96–99
[2025-09-20 06:56] LABS: CREATININE 4.0 mg/dL (0.6-1.3); SODIUM SERUM 135 mmol/L (136-145); UREA NITROGEN, BLOOD 78 mg/dL (7-18)
[2025-09-20 07:01] LABS: ASPARTATE AMINOTRANSFERASE 22 U/L (15-37); TOTAL PROTEIN, SERUM 8.2 g/dL (6.4-8.2)
[2025-09-20 07:05] LABS: PLATELET COUNT (AUTO) 401 K/uL (152-348); RED BLOOD CELL COUNT(AUTO) 3.03 MIL/uL (4.06-5.63); RED CELL DISTRIBUTION WIDTH 16.7 % (12.1-16.2); WHITE BLOOD COUNT (AUTO) 5.2 K/uL (3.6-10.2)
[2025-09-20] MEDS ORDERED: VANCOMYCIN IV 500 MG in IV DEXTROSE 5% 100 ML IV SCH (16:00)
[2025-09-21] VITALS (13 sets, daily range): BP systolic 131–164; BP diastolic 60–80; TEMP 97.2–97.8; O2SAT 94–99
[2025-09-21 07:26] LABS: PLATELET COUNT (AUTO) 371 K/uL (152-348); RED BLOOD CELL COUNT(AUTO) 2.92 MIL/uL (4.06-5.63); RED CELL DISTRIBUTION WIDTH 16.4 % (12.1-16.2); WHITE BLOOD COUNT (AUTO) 5.2 K/uL (3.6-10.2)
[2025-09-21 07:52] LABS: ASPARTATE AMINOTRANSFERASE 24 U/L (15-37); CREATININE 3.5 mg/dL (0.6-1.3); SODIUM SERUM 138 mmol/L (136-145); TOTAL PROTEIN, SERUM 8.3 g/dL (6.4-8.2); UREA NITROGEN, BLOOD 70 mg/dL (7-18)
[2025-09-22] VITALS (15 sets, daily range): BP systolic 142–153; BP diastolic 68–76; TEMP 97–98.2; O2SAT 92–100
[2025-09-22 08:12] LABS: PLATELET COUNT (AUTO) 376 K/uL (152-348); RED BLOOD CELL COUNT(AUTO) 2.99 MIL/uL (4.06-5.63); RED CELL DISTRIBUTION WIDTH 16.3 % (12.1-16.2); WHITE BLOOD COUNT (AUTO) 5.4 K/uL (3.6-10.2)
[2025-09-22 08:20] LABS: CREATININE 4.6 mg/dL (0.6-1.3); SODIUM SERUM 134 mmol/L (136-145)
[2025-09-22 08:24] LABS: UREA NITROGEN, BLOOD 95 mg/dL (7-18)
[2025-09-22 08:26] LABS: ASPARTATE AMINOTRANSFERASE 23 U/L (15-37); TOTAL PROTEIN, SERUM 8.5 g/dL (6.4-8.2)
[2025-09-22 09:29] LABS: CREATININE 4.8 mg/dL (0.6-1.3); SODIUM SERUM 135 mmol/L (136-145)
[2025-09-22 09:45] LABS: UREA NITROGEN, BLOOD 97 mg/dL (7-18)
[2025-09-23] VITALS (17 sets, daily range): BP systolic 132–157; BP diastolic 57–77; TEMP 97.9–98.6; O2SAT 92–99
[2025-09-23 06:58] LABS: PLATELET COUNT (AUTO) 352 K/uL (152-348); RED BLOOD CELL COUNT(AUTO) 3.11 MIL/uL (4.06-5.63); RED CELL DISTRIBUTION WIDTH 16.6 % (12.1-16.2); WHITE BLOOD COUNT (AUTO) 5.8 K/uL (3.6-10.2)
[2025-09-23 07:07] LABS: ASPARTATE AMINOTRANSFERASE 23 U/L (15-37); CREATININE 3.3 mg/dL (0.6-1.3); SODIUM SERUM 136 mmol/L (136-145); TOTAL PROTEIN, SERUM 8.9 g/dL (6.4-8.2); UREA NITROGEN, BLOOD 61 mg/dL (7-18)
[2025-09-23 08:10] LABS: IRON, SERUM 31 ug/dL (50-175)
[2025-09-23] MEDS ORDERED: HEPARIN/NS 500 ML ONE (14:18)
[2025-09-23] MEDS ORDERED: LIDOCAINE HCL 1% 20 ML VIAL ONE (14:19)
[2025-09-23] MEDS ORDERED: HEPARIN SODIUM,PORCINE 1,000 UNITS/ML VIAL ONE ×2 (14:19→14:22)
[2025-09-23] MEDS ORDERED: IOHEXOL-240 MG , 50 ML VIAL IV ONE (14:20)
[2025-09-23] MEDS ORDERED: FENTANYL CITRATE 100 MCG/2 ML AMPUL ONE (14:23)
[2025-09-24] VITALS (17 sets, daily range): BP systolic 124–164; BP diastolic 57–76; TEMP 97.6–99.1; O2SAT 94–99
[2025-09-24 06:55] LABS: PLATELET COUNT (AUTO) 324 K/uL (152-348); RED BLOOD CELL COUNT(AUTO) 2.90 MIL/uL (4.06-5.63); RED CELL DISTRIBUTION WIDTH 16.6 % (12.1-16.2); WHITE BLOOD COUNT (AUTO) 4.8 K/uL (3.6-10.2)
[2025-09-24 07:03] LABS: CREATININE 4.3 mg/dL (0.6-1.3); SODIUM SERUM 132 mmol/L (136-145); UREA NITROGEN, BLOOD 79 mg/dL (7-18)
[2025-09-24 07:15] LABS: ASPARTATE AMINOTRANSFERASE 23 U/L (15-37); TOTAL PROTEIN, SERUM 8.4 g/dL (6.4-8.2)
[2025-09-25] VITALS (15 sets, daily range): BP systolic 118–156; BP diastolic 60–70; TEMP 97.5–98.6; O2SAT 94–98
[2025-09-26] VITALS (16 sets, daily range): BP systolic 143–175; BP diastolic 66–79; TEMP 97.7–97.9; O2SAT 94–100
[2025-09-27] VITALS (16 sets, daily range): BP systolic 140–160; BP diastolic 64–75; TEMP 97.3–98; O2SAT 95–100
[2025-09-27 07:11] LABS: PLATELET COUNT (AUTO) 336 K/uL (152-348); RED BLOOD CELL COUNT(AUTO) 3.20 MIL/uL (4.06-5.63); RED CELL DISTRIBUTION WIDTH 17.8 % (12.1-16.2); WHITE BLOOD COUNT (AUTO) 4.9 K/uL (3.6-10.2)
[2025-09-28] VITALS (15 sets, daily range): BP systolic 136–156; BP diastolic 60–78; TEMP 97.6–97.9; O2SAT 97–100
[2025-09-29] VITALS (13 sets, daily range): BP systolic 148–157; BP diastolic 61–74; TEMP 97.3–97.7; O2SAT 94–99
[2025-09-29 07:37] LABS: PLATELET COUNT (AUTO) 323 K/uL (152-348); RED BLOOD CELL COUNT(AUTO) 3.09 MIL/uL (4.06-5.63); RED CELL DISTRIBUTION WIDTH 17.9 % (12.1-16.2); WHITE BLOOD COUNT (AUTO) 4.7 K/uL (3.6-10.2)
[2025-09-29 08:44] LABS: CREATININE 3.2 mg/dL (0.6-1.3); SODIUM SERUM 132 mmol/L (136-145); UREA NITROGEN, BLOOD 47 mg/dL (7-18)
[2025-09-29] MEDS: POTASSIUM CHLORIDE 20 MEQ POWDER PACKET GT ONE (15:36)
[2025-09-30] VITALS (13 sets, daily range): BP systolic 149–155; BP diastolic 73–77; TEMP 97.3–97.9; O2SAT 97–100
[2025-10-01] VITALS (13 sets, daily range): BP systolic 152–165; BP diastolic 67–77; TEMP 97.3–97.7; O2SAT 94–100
[2025-10-02] VITALS (15 sets, daily range): BP systolic 145–164; BP diastolic 72–80; TEMP 97.5–97.8; O2SAT 95–100
[2025-10-02 06:52] LABS: PLATELET COUNT (AUTO) 317 K/uL (152-348); RED BLOOD CELL COUNT(AUTO) 3.29 MIL/uL (4.06-5.63); RED CELL DISTRIBUTION WIDTH 18.8 % (12.1-16.2); WHITE BLOOD COUNT (AUTO) 6.0 K/uL (3.6-10.2)
[2025-10-02 07:04] LABS: CREATININE 3.6 mg/dL (0.6-1.3); SODIUM SERUM 134 mmol/L (136-145); UREA NITROGEN, BLOOD 47 mg/dL (7-18)
[2025-10-02] MEDS: POTASSIUM CHLORIDE 20 MEQ POWDER PACKET GT ONE (11:17)
[2025-10-03] VITALS (13 sets, daily range): BP systolic 131–160; BP diastolic 68–73; TEMP 97.5–97.7; O2SAT 92–100
[2025-10-04] VITALS (13 sets, daily range): BP systolic 139–144; BP diastolic 63–73; TEMP 97.6–98.3; O2SAT 94–99
[2025-10-05] VITALS (15 sets, daily range): BP systolic 128–152; BP diastolic 59–79; TEMP 97.3–97.6; O2SAT 96–99
[2025-10-05] MEDS: AMLODIPINE 5 MG TABLET PO SCH (09:29)
[2025-10-06] VITALS (14 sets, daily range): BP systolic 38–144; BP diastolic 57–75; TEMP 97.3–97.8; O2SAT 94–99
[2025-10-06] MEDS ORDERED: GUAIFENESIN/DEXTROMETHORPHAN 5 ML UDC PO PRN (08:30)
[2025-10-06 18:23] LABS: PLATELET COUNT (AUTO) 300 K/uL (152-348); RED BLOOD CELL COUNT(AUTO) 3.19 MIL/uL (4.06-5.63); RED CELL DISTRIBUTION WIDTH 18.8 % (12.1-16.2); WHITE BLOOD COUNT (AUTO) 4.5 K/uL (3.6-10.2)
[2025-10-07] VITALS (12 sets, daily range): BP systolic 132–144; BP diastolic 56–70; TEMP 97.5–97.9; O2SAT 94–100
[2025-10-08] VITALS (19 sets, daily range): BP systolic 133–147; BP diastolic 62–70; TEMP 97.5–97.7; O2SAT 96–99
[2025-10-08 06:46] LABS: PLATELET COUNT (AUTO) 257 K/uL (152-348); RED BLOOD CELL COUNT(AUTO) 3.07 MIL/uL (4.06-5.63); RED CELL DISTRIBUTION WIDTH 18.6 % (12.1-16.2); WHITE BLOOD COUNT (AUTO) 5.3 K/uL (3.6-10.2)
[2025-10-08] MEDS: LIDOCAINE HCL 1% 20 ML VIAL IJ STA (17:07)
[2025-10-08] MEDS: HYDROCODONE/APAP 5-325MG TABLET PO ONE (18:55)
[2025-10-09] VITALS (11 sets, daily range): BP systolic 108–138; BP diastolic 54–67; TEMP 97.7–98.4; O2SAT 95–99
[2025-10-09 18:34] LABS: PLATELET COUNT (AUTO) 284 K/uL (152-348); RED BLOOD CELL COUNT(AUTO) 3.11 MIL/uL (4.06-5.63); RED CELL DISTRIBUTION WIDTH 18.4 % (12.1-16.2); WHITE BLOOD COUNT (AUTO) 4.5 K/uL (3.6-10.2)
[2025-10-09 18:45] LABS: CREATININE 3.1 mg/dL (0.6-1.3); SODIUM SERUM 133 mmol/L (136-145); UREA NITROGEN, BLOOD 56 mg/dL (7-18)
[2025-10-10] VITALS (14 sets, daily range): BP systolic 122–154; BP diastolic 53–80; TEMP 97.5–98; O2SAT 91–99
[2025-10-11] VITALS (14 sets, daily range): BP systolic 122–146; BP diastolic 63–69; TEMP 97.4–99.8; O2SAT 91–98
[2025-10-11 04:10] LABS: HEPATITIS B CORE AB, IgM Negative (Negative); HEPATITIS B CORE AB, TOTAL Negative (Negative); HEPATITIS B SURFACE AB, QUAL Non Reactive (.); HEPATITIS B SURFACE AG Negative (Negative); HEPATITIS C VIRUS ANTIBODY Non Reactive (Non Reactive)
[2025-10-11 07:10] LABS: PLATELET COUNT (AUTO) 284 K/uL (152-348); RED BLOOD CELL COUNT(AUTO) 3.14 MIL/uL (4.06-5.63); RED CELL DISTRIBUTION WIDTH 18.5 % (12.1-16.2); WHITE BLOOD COUNT (AUTO) 5.3 K/uL (3.6-10.2)
[2025-10-11 07:33] LABS: CREATININE 3.1 mg/dL (0.6-1.3); SODIUM SERUM 132 mmol/L (136-145); UREA NITROGEN, BLOOD 58 mg/dL (7-18)
[2025-10-12] VITALS (12 sets, daily range): BP systolic 122–130; BP diastolic 53–68; TEMP 98–99; O2SAT 94–99
[2025-10-12 06:43] LABS: PLATELET COUNT (AUTO) 286 K/uL (152-348); RED BLOOD CELL COUNT(AUTO) 3.04 MIL/uL (4.06-5.63); RED CELL DISTRIBUTION WIDTH 17.9 % (12.1-16.2); WHITE BLOOD COUNT (AUTO) 5.0 K/uL (3.6-10.2)
[2025-10-12 12:49] LABS: BAND % (MANUAL) 2 % (0-10); LYMPHOCYTES % (MANUAL) 10 % (20-40); MONOCYTES % (MANUAL) 17 % (2-10); NEUTROPHILS % (MANUAL) 71 % (42-75)
[2025-10-12 12:50] LABS: PLATELET ESTIMATE ADEQUATE
[2025-10-23] MEDS ORDERED: NALOXONE HCL 0.4 MG/ML AMPUL ONE (15:57)
[2025-10-23] MEDS ORDERED: ATROPINE SULFATE 1 MG/ML VIAL ONE (15:57)
[2025-10-23] MEDS ORDERED: LIDOCAINE-MPF 2% 5 ML VIAL ONE (15:57)
[2025-10-23] MEDS ORDERED: CEFAZOLIN 1 G VIAL ONE (15:57)
[2025-10-23] MEDS ORDERED: PROPOFOL 200 MG/20 ML BOTTLE ONE (15:57)
[2025-10-23] MEDS ORDERED: GLYCOPYRROLATE 0.2 MG/ML VIAL ONE (15:57)
== END 2025-10-12 16:15 | DRG 5 ==
LOC: EDSEX 15:45 → ER 15:45 → TELE3 18:54 → CCU 04-18 06:33 → ICU IN 05-06 08:10 → CCU 05-09 21:22 → TELE-TD3 05-15 10:15 → TELE3 05-21 11:48 → TELE-TD3 05-23 10:11 → ICU IN 05-27 14:14 → CCU 06-05 15:35 → TELE-TD3 06-06 18:43 → TELE3 06-18 14:31 → MEDSURG3 06-28 09:00 → CCU 07-11 10:29 → TELE3 07-13 22:35 → MEDSURG3 07-19 10:45 → TELE3 09-02 17:40 → MEDSURG3 09-06 09:25
PROVIDERS: ADMIT Nurse Practitioner Acute Care; ATTEND Nurse Practitioner Acute Care
PROC: 05HB33Z Insertion of Infusion Device into Right Basilic Vein, Percutaneous Approach (ICD-10-PCS; principal; 2025-04-11)
PROC: 5A1D70Z Performance of Urinary Filtration, Intermittent, Less than 6 Hours Per Day (ICD-10-PCS; 2025-04-13)
PROC: 0W993ZZ Drainage of Right Pleural Cavity, Percutaneous Approach (ICD-10-PCS; 2025-04-15)
PROC: 5A1955Z Respiratory Ventilation, Greater than 96 Consecutive Hours (ICD-10-PCS; 2025-04-18)
PROC: 0BH17EZ Insertion of Endotracheal Airway into Trachea, Via Natural or Artificial Opening (ICD-10-PCS; 2025-04-18)
PROC: 5A12012 Performance of Cardiac Output, Single, Manual (ICD-10-PCS; 2025-04-18)
PROC: 0W9900Z Drainage of Right Pleural Cavity with Drainage Device, Open Approach (ICD-10-PCS; 2025-04-27)
PROC: 30233N1 Transfusion of Nonautologous Red Blood Cells into Peripheral Vein, Percutaneous Approach (ICD-10-PCS; 2025-04-27)
PROC: 5A1D70Z Performance of Urinary Filtration, Intermittent, Less than 6 Hours Per Day (ICD-10-PCS; 2025-04-29)
PROC: 0B113F4 Bypass Trachea to Cutaneous with Tracheostomy Device, Percutaneous Approach (ICD-10-PCS; 2025-05-08)
PROC: 0DH63UZ Insertion of Feeding Device into Stomach, Percutaneous Approach (ICD-10-PCS; 2025-05-10)
PROC: 30243N1 Transfusion of Nonautologous Red Blood Cells into Central Vein, Percutaneous Approach (ICD-10-PCS; 2025-05-20)
PROC: 0W9B3ZZ Drainage of Left Pleural Cavity, Percutaneous Approach (ICD-10-PCS; 2025-05-20)
PROC: 05HB33Z Insertion of Infusion Device into Right Basilic Vein, Percutaneous Approach (ICD-10-PCS; 2025-05-23)
PROC: 0B21XFZ Change Tracheostomy Device in Trachea, External Approach (ICD-10-PCS; 2025-05-27)
PROC: 0W9900Z Drainage of Right Pleural Cavity with Drainage Device, Open Approach (ICD-10-PCS; 2025-05-27)
PROC: 02HV33Z Insertion of Infusion Device into Superior Vena Cava, Percutaneous Approach (ICD-10-PCS; 2025-06-06)
PROC: 079T3ZX Drainage of Bone Marrow, Percutaneous Approach, Diagnostic (ICD-10-PCS; 2025-06-10)
PROC: 05HB33Z Insertion of Infusion Device into Right Basilic Vein, Percutaneous Approach (ICD-10-PCS; 2025-07-07)
PROC: 05PY33Z Removal of Infusion Device from Upper Vein, Percutaneous Approach (ICD-10-PCS; 2025-07-18)
PROC: 05H933Z Insertion of Infusion Device into Right Brachial Vein, Percutaneous Approach (ICD-10-PCS; 2025-07-22)
PROC: 06HY33Z Insertion of Infusion Device into Lower Vein, Percutaneous Approach (ICD-10-PCS; 2025-07-22)
PROC: 0JB60ZX Excision of Chest Subcutaneous Tissue and Fascia, Open Approach, Diagnostic (ICD-10-PCS; 2025-07-23)
PROC: B544ZZA Ultrasonography of Left Jugular Veins, Guidance (ICD-10-PCS; 2025-07-26)
PROC: 05HN33Z Insertion of Infusion Device into Left Internal Jugular Vein, Percutaneous Approach (ICD-10-PCS; 2025-07-26)
PROC: 0JH63XZ Insertion of Tunneled Vascular Access Device into Chest Subcutaneous Tissue and Fascia, Percutaneous Approach (ICD-10-PCS; 2025-07-26)
PROC: 0JB60ZZ Excision of Chest Subcutaneous Tissue and Fascia, Open Approach (ICD-10-PCS; 2025-07-31)
PROC: 02PY33Z Removal of Infusion Device from Great Vessel, Percutaneous Approach (ICD-10-PCS; 2025-09-06)
PROC: 06HY33Z Insertion of Infusion Device into Lower Vein, Percutaneous Approach (ICD-10-PCS; 2025-09-10)
PROC: 0JH63XZ Insertion of Tunneled Vascular Access Device into Chest Subcutaneous Tissue and Fascia, Percutaneous Approach (ICD-10-PCS; 2025-09-23)
PROC: B548ZZA Ultrasonography of Superior Vena Cava, Guidance (ICD-10-PCS; 2025-09-23)
PROC: 02HV33Z Insertion of Infusion Device into Superior Vena Cava, Percutaneous Approach (ICD-10-PCS; 2025-09-23)
DX: I13.2 Hypertensive heart and chronic kidney disease with heart failure and with stage 5 chronic kidney disease, or end stage renal disease (principal); A41.51 Sepsis due to Escherichia coli [E. coli]; A41.02 Sepsis due to Methicillin resistant Staphylococcus aureus; J69.0 Pneumonitis due to inhalation of food and vomit; J86.9 Pyothorax without fistula; R57.1 Hypovolemic shock; J96.21 Acute and chronic respiratory failure with hypoxia; A41.9 Sepsis, unspecified organism; G92.8 Other toxic encephalopathy; L89.156 Pressure-induced deep tissue damage of sacral region; J98.11 Atelectasis; C34.2 Malignant neoplasm of middle lobe, bronchus or lung; J96.01 Acute respiratory failure with hypoxia; B37.49 Other urogenital candidiasis; N18.6 End stage renal disease; Z99.2 Dependence on renal dialysis; J44.0 Chronic obstructive pulmonary disease with (acute) lower respiratory infection; J15.9 Unspecified bacterial pneumonia; J91.8 Pleural effusion in other conditions classified elsewhere; I46.9 Cardiac arrest, cause unspecified; M96.A3 Multiple fractures of ribs associated with chest compression and cardiopulmonary resuscitation; N39.0 Urinary tract infection, site not specified; B96.20 Unspecified Escherichia coli [E. coli] as the cause of diseases classified elsewhere; D69.6 Thrombocytopenia, unspecified; E44.0 Moderate protein-calorie malnutrition; I50.43 Acute on chronic combined systolic (congestive) and diastolic (congestive) heart failure; D63.1 Anemia in chronic kidney disease; I08.3 Combined rheumatic disorders of mitral, aortic and tricuspid valves; F03.94 Unspecified dementia, unspecified severity, with anxiety; I27.21 Secondary pulmonary arterial hypertension; E11.65 Type 2 diabetes mellitus with hyperglycemia; K66.8 Other specified disorders of peritoneum; Z75.1 Person awaiting admission to adequate facility elsewhere; E87.1 Hypo-osmolality and hyponatremia; Z16.12 Extended spectrum beta lactamase (ESBL) resistance; I48.0 Paroxysmal atrial fibrillation; Z22.322 Carrier or suspected carrier of Methicillin resistant Staphylococcus aureus; D47.2 Monoclonal gammopathy; C44.529 Squamous cell carcinoma of skin of other part of trunk; K56.41 Fecal impaction; E78.5 Hyperlipidemia, unspecified; I48.20 Chronic atrial fibrillation, unspecified; I25.10 Atherosclerotic heart disease of native coronary artery without angina pectoris; D68.59 Other primary thrombophilia; E11.22 Type 2 diabetes mellitus with diabetic chronic kidney disease; L89.326 Pressure-induced deep tissue damage of left buttock; L89.316 Pressure-induced deep tissue damage of right buttock; E87.0 Hyperosmolality and hypernatremia; E87.5 Hyperkalemia; E87.6 Hypokalemia; E87.3 Alkalosis; E83.39 Other disorders of phosphorus metabolism; K29.80 Duodenitis without bleeding; K29.70 Gastritis, unspecified, without bleeding; N40.0 Benign prostatic hyperplasia without lower urinary tract symptoms; S20.412A Abrasion of left back wall of thorax, initial encounter; X58.XXXA Exposure to other specified factors, initial encounter; Y92.239 Unspecified place in hospital as the place of occurrence of the external cause; R13.10 Dysphagia, unspecified; N50.89 Other specified disorders of the male genital organs; R18.8 Other ascites; S41.111A Laceration without foreign body of right upper arm, initial encounter; M96.A1 Fracture of sternum associated with chest compression and cardiopulmonary resuscitation; D75.839 Thrombocytosis, unspecified; J96.22 Acute and chronic respiratory failure with hypercapnia; F03.918 Unspecified dementia, unspecified severity, with other behavioral disturbance; Z68.29 Body mass index [BMI] 29.0-29.9, adult; Z78.1 Physical restraint status
CPT/HCPCS: 32555; 36415; 36600; 43761; 70030-TC; 70450; 70490; 71045; 71250; 71275; 74018; 74230; 75989; 76604; 76705; 78580; 82378; 82746; 82784; 82803; 83550; 83605; 83615; 83690; 83735; 83986; 84100; 84155; 84165; 84166; 84443; 84478; 84481; 84484; 85018; 85025; 85610; 85730; 86140; 86334; 86704; 86705; 86706; 86803; 86850; 86900; 86901; 86920; 87040; 87070; 87077; 87086; 87205; 87340; 87350; 87806; 92950; 93005; 93307; 94002; 94003; 94640; 94664; 94760; 97535-GO-CO; 99082-TC; A4606; A4649; A4663; A6209; A6213; A9540; C1729; C1758; G0378; J0171; J0282; J0360; J0461; J0612; J0690; J0692; J0696; J0713; J0885; J1200; J1308; J1630; J1644; J1650; J1815; J1938; J1956; J2060; J2185; J2248; J2250; J2270; J2312; J2405; J2470; J2543; J2765; J2916; J2997; J3010; J3370; J3373; J3490; J3590; J7040; J7042; J7050; J7060; P9016; P9045; P9047; Q9966; Q9967